=== PATIENT | female | born 1955 | race Caucasian/White ===

== ENCOUNTER → 2017-07-03 | Outpatient (CLI) | payer OTHER ==
[~2017-07-03] MED LIST: ASPCH81X PO; ATOR-24 PO; CALC500C70 PO; CZR25 PO; FURO-85 PO; MAGN400T6 PO; METO25TA56 PO; MULT-506 PO; RIVA1TAB4 PO
--- NOTE | 2017-07-04 10:36 | ECHOCARDIOGRAM REPORT ---
*NOTICE TO RECEIVING DEMOCRAT AGENCY This information is strictly Confidential and protected under [place] law. [place] law prohibits you from making any further disclosure of this information unless further disclosure is expressly permitted by the written consent of the person to whom it pertains or is authorized by law. A general authorization for the release of medical or other information is not sufficient for this purpose. Hospital accepts no responsibility if the information is made available to any other person, INCLUDING THE PATIENT. Interpretation Summary * Name: AARON SHANNON Study Date: 07/03/2017 12:48 PM BP: 136/78 mmHg * Patient Location: [facility] HR: 68 * : 1955 (M/d/yyyy) Gender: Female Height: 64 in * Age: 61 yrs Ethnicity: [place] Weight: 267 lb * Ordering Physician: Venkat Dominique * Referring Physician: Venkat Dominique PA-C * Performed By: Hunter Aj RCS * * Reason For Study: Murmur * BSA: 2.2 m2 * -- Conclusions -- * Normal LV chamber size with mild concentric LVH. * Normal LV systolic function, EF 60-65%. * No segmental left ventricular wall motion abnormalities are noted. * Normal diastolic function. * Aortic valve sclerosis moderate, without significant aortic valvular stenosis. * Mild left atrial enlargement. Procedure Details * A complete two-dimensional transthoracic echocardiogram was performed (2D, M-mode, Doppler and color flow Doppler). Left Ventricle * The left ventricle is normal in size. * There is mild concentric left ventricular hypertrophy. * Ejection Fraction = 60-65%. * Left ventricular systolic function is normal. * No segmental left ventricular wall motion abnormalities are noted. * The left ventricular wall motion is normal. Right Ventricle * The right ventricular cavity size is normal (basal dimension <4.2 cm in right ventricular apical 4-chamber view). * The right ventricular systolic function is normal as assessed by tricuspid annular plane systolic excursion (TAPSE) (normal >1.5 cm). Atria * The left atrium is mildly dilated. * Right atrial size is normal. * No ASD detected; PFO is not assessed. Mitral Valve * There is mild mitral annular calcification. * There is no mitral valve stenosis. * There is no mitral regurgitation noted. Tricuspid Valve * The tricuspid valve is normal in structure and function. Aortic Valve * The aortic valve is not well visualized. * Aortic valve sclerosis moderate, without significant aortic valvular stenosis. * There is no significant aortic regurgitation. Pulmonic Valve * The pulmonary valve is not well seen, but the Doppler examination is normal without significant regurgitation or stenosis. Great Vessels * The aortic root is normal size. Pericardium/Pleural * There is no pericardial effusion. Left Ventricular Diastolic Function * Pulse wave TDI of the anterior and posterior mitral annulas demonstrates normal LV relaxation MMode 2D Measurements and Calculations IVSd 1.3 cm IVSs 1.5 cm LVIDd 5.5 cm LVIDs 3.5 cm LVPWd 1.2 cm LVPWs 1.5 cm IVS/LVPW 1.1 FS 36.4 % EDV(Teich) 148.0 ml ESV(Teich) 51.1 ml EF(Teich) 65.5 % EDV(cubed) 167.2 ml ESV(cubed) 43.1 ml EF(cubed) 74.2 % % IVS thick 13.7 % % LVPW thick 23.8 % LV mass(C)d 285.7 grams LV mass(C)dI 129.2 grams/m\S\2 LV mass(C)s 187.6 grams LV mass(C)sI 84.8 grams/m\S\2 SV(Teich) 96.9 ml SI(Teich) 43.8 ml/m\S\2 SV(cubed) 124.1 ml SI(cubed) 56.1 ml/m\S\2 Ao root diam 3.2 cm Ao root area 8.1 cm\S\2 ACS 1.4 cm LA dimension 4.1 cm asc Aorta Diam 3.3 cm LA/Ao 1.3 EDV(MOD-sp4) 122.7 ml ESV(MOD-sp4) 59.0 ml EF(MOD-sp4) 52.0 % EDV(MOD-sp2) 114.3 ml ESV(MOD-sp2) 40.8 ml EF(MOD-sp2) 64.4 % SV(MOD-sp4) 63.8 ml SI(MOD-sp4) 28.8 ml/m\S\2 SV(MOD-sp2) 73.6 ml SI(MOD-sp2) 33.3 ml/m\S\2 Doppler Measurements and Calculations MV E max reilly 121.8 cm/sec MV A max reilyl 55.5 cm/sec MV E/A 2.2 MV P1/2t max reilly 130.6 cm/sec MV P1/2t 87.8 msec MVA(P1/2t) 2.5 cm\S\2 MV dec slope 435.7 cm/sec\S\2 MV dec time 0.29 sec Ao V2 max 184.4 cm/sec Ao max PG 13.6 mmHg Ao max PG (full) 8.1 mmHg LV V1 max PG 5.5 mmHg LV V1 max 117.3 cm/sec PA V2 max 100.0 cm/sec PA max PG 4.0 mmHg TR max reilly 273.1 cm/sec
== END | disposition home or self-care (01) ==
LOC: C.CPL 12:35
PROVIDERS: ATTEND Physician Assistant
DX: R01.1 Cardiac murmur, unspecified (principal)

== ENCOUNTER 2018-11-05 11:52 | Inpatient (IN) ==
[2018-11-05] MEDS ORDERED: METOPROLOL TARTRATE 1 MG/ML VIAL IV STA ×2 (12:50→13:36)
[2018-11-05] MEDS ORDERED: ETOMIDATE 2 MG/ML 20 ML VIAL IV ONE ×2 (13:12→15:00)
--- NOTE | 2018-11-05 13:32 | XRay Report ---
XR chest 1V portable CLINICAL HISTORY: 63 years-old Female presenting with afib, weak, chf. TECHNIQUE: Portable upright AP view of the chest was obtained. COMPARISON: None. FINDINGS: Atherosclerosis of the aortic arch. Cardiac silhouette enlarged. Mild pulmonary vascular prominence. Lungs and pleural spaces clear. Degenerative changes of the thoracic spine. Upper abdomen normal. IMPRESSION: 1. Cardiomegaly with mild volume overload. No significant congestive change or kendell pulmonary edema . Electronically signed by: Jamal Holm M.D. 11/05/2018 1:30 PM
[2018-11-05 13:46] LABS: Basophils # (auto) 0.02 K/uL (0-0.2); Basophils % (auto) 0.3 %; Eosinophils % (auto) 2.6 %; Hematocrit (blood only) 36.4 % (37-47); Hemoglobin 11.9 g/dL (12.0-16.0); Immature Granulocytes # (auto) 0.01 K/uL (0.00-0.02); Immature Granulocytes % (auto) 0.1 %; Lymphocytes # (auto) 2.07 K/uL (1.2-3.4); Lymphocytes % (auto) 26.8 %; Mean Corpuscular Hemoglobin 26.7 pg (25-34); Mean Corpuscular Hgb Conc 32.7 g/dL (32-36); Mean Corpuscular Volume 81.6 fL (80-100); Mean Platelet Volume 11.4 fL (7.4-10.4); Monocytes # (auto) 0.37 K/uL (0.11-0.59); Monocytes % (auto) 4.8 %; Neutrophils # (auto) 5.04 K/uL (1.4-6.5); Neutrophils % (auto) 65.4 %; Platelet Count 301 K/uL (130-400); Red Blood Count 4.46 M/uL (4.2-5.4); White Blood Count 7.71 K/uL (4.8-10.8)
[2018-11-05 13:59] LABS: INR 1.1 (0.9-1.1); Partial Thromboplastin Ratio 1.1; Partial Thromboplastin Time 28.9 Seconds (21.0-31.0); Prothrombin Time 11.3 Seconds (9.0-12.0)
[2018-11-05 14:02] LABS: BUN Creatinine Ratio 14.8 (10-20); Blood Urea Nitrogen 10 mg/dl (7-18); Carbon Dioxide 28 mmol/L (21-32); Chloride 108 mmol/L (98-107); Creatinine Clr Calc Pharmacy 111.1 ml/min; Est GFR (African American) 107.4; Est GFR (Non-African American) 92.7; Glucose 122 mg/dl (70-99); Magnesium 2.2 mg/dl (1.8-2.4); Potassium 4.2 mmol/L (3.5-5.1); Sodium 141 mmol/L (136-145)
[2018-11-05 14:13] LABS: NT Pro B Type Natriuretic Pept 1004 pg/ml (0-900); Troponin I < 0.015 ng/ml (0-0.045)
--- NOTE | 2018-11-05 15:08 | Cardiology Consultation ---
Date of Consultation November 05, 2018 Assessment & Plan (1) Paroxysmal a-fib: Recurrent symptomatic atrial fibrillation. The patient had been well for years status post pulmonary vein isolation and caval tricuspid isthmus ablation in March 2014 having had multiple direct- current cardioversion procedures prior to that. She however reverted to atrial fibrillation in August and underwent direct-current cardioversion, and presents again today. She has been n.p.o. for greater than 12 hours, and has been on her Xarelto without interruption. Laboratory findings are stable. Although her chest x-ray reveals some degree of pulmonary edema, she appears well compensated from a heart failure standpoint at present. After discussion with Dr. Costello, we are going to collaborate to perform a direct-current cardioversion at the bedside in the emergency department. The tentative sedation plan will be for the patient to receive etomidate. Patient was a agreeable to proceeding with direct-current cardioversion and informed consent was obtained for the procedure. (2) Hypertension: Her blood pressure had recently been controlled on outpatient follow-up, having recently started furosemide 20 mg daily. This will need to be reassessed as an outpatient as she is above goal today. History of Present Illness History of Present Illness Marguerite Yu is a 63 year old female seen in cardiology consultation per the request of Dr Costello in the ED for the evaluation of atrial fibrillation. Patient is well-known to the undersigned as I followed her on an outpatient inp atient basis for years. She states that 2 days ago she felt as if she had gone out of rhythm her typical sensation of elevated heart rate and shortness of breath consistent with her atrial fibrillation symptoms in the past. 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 When her symptoms persisted when she woke up this morning she held off on breakfast, took her morning medications with a sip of water, and presented to the emergency room. EKG performed on arrival on 11/05/2018 at 12:52 PM revealed atrial fibrillation with mildly elevated ventricular rate. No significant repolarization changes were noted, the corrected QT interval was stable at 387 ms. The patient is anticoagulated with Xarelto on a chronic basis which she takes every evening. Last evening's dose was taken at about 9 PM. The patient has had multiple diversions, the most recent of which took place on 08/28/2018. She states that she has been under a great deal of stress recently. She previously lost her sister who suddenly and had a history of aortic valve disease. Her niece, is 36 years old and is currently being treated for a glioblastoma multiforme and apparently has been told that she has a poor prognosis. Cardiology Problem List: 1. History of symptomatic paroxysmal atrial fibrillation and atrial flutter status post pulmonary vein isolation and caval tricuspid isthmus ablation procedures on 04/03/2014 on chronic anticoagulation with Xarelto 2. Long-standing hypertension 3. Coronary heart disease, nonobstructive CAD by catheterization performed in Jul, 2015 with 40% ostial LAD stenosis noted at that time. Elevated left atrial end-diastolic pressure noted 4. Obesity Allergies Allergy/AdvReac Type Severity Reaction Status Date / Time codeine Allergy Unknown Unknown, Verified 11/05/18 12:27 reaction as child Home Medications Home Medications Medication Instructions Recorded Confirmed Type Xarelto 20 mg PO PM 08/27/18 11/05/18 History aspirin 81 mg PO QAM 08/27/18 11/05/18 History atorvastatin 40 mg PO HS 08/27/18 11/05/18 History calcium carbonate-vitamin D3 1 tab PO BID 08/27/18 11/05/18 History [Calcium 500 + D] magnesium oxide 400 mg PO QAM 08/27/18 11/05/18 History metoprolol tartrate 25 mg PO BID 08/27/18 11/05/18 History multivitamin 1 tab PO QAM 08/27/18 11/05/18 History losartan 25 mg PO DAILY 11/05/18 11/05/18 History Patient History Medical History A-fib (Chronic) Atrial flutter with rapid ventricular response (Acute) Hypertension (Chronic) Paroxysmal a-fib (Acute) SVT (supraventricular tachycardia) (Acute) No pertinent family history Surgical History History of cardiac radiofrequency ablation (Resolved) Family History Other No pertinent family history Social History Preferred Language: Beninese Communication Ability: Effective Visual Impairment: No Limitations Hearing Ability: Normal Beliefs That Will Affect Care: None Current Living Situation: Spouse Feels Safe at Home: Yes Smoking Status: Never smoker Hx Alcohol Use: No Hx Substance Use: No Review of Systems Review of Systems: All systems reviewed & are unremarkable except as noted in HPI & below Physical Exam Physical Exam: Temp Pulse Resp BP Pulse Ox 36.7 C 102 H 20 142/90 H 96 11/05/18 11:57 11/05/18 14:20 11/05/18 14:20 11/05/18 14:18 11/05/18 14:20 Constitutional: WD/WN, vitals as above Respiratory: normal respiratory effort, lungs clear to auscultation Cardiovascular: Rate/Rhythm: + irregularly irregular Heart Sounds: no murmur Vessels: no JVD Extremities: no edema Gastrointestinal (Abdomen): normal bowel sounds, soft, nontender, no hepatosplenomegaly Skin: no rashes, warm and dry Neurologic: PERRL, EOMI, accommodation nl, no face palsy, no dysarthria Results & Data Vital Signs (Past 12 Hours) Vital Signs Temp Pulse Pulse Resp BP BP Pulse Ox 11/05/18 14:20 102 H 20 96 11/05/18 14:19 106 H 19 97 11/05/18 14:18 101 H 19 142/90 H 97 11/05/18 14:17 95 H 104 H 20 147/107 H 98 11/05/18 14:15 105 H 15 147/107 H 98 11/05/18 14:14 114 H 16 97 11/05/18 14:13 107 H 17 97 11/05/18 14:12 101 H 20 98 11/05/18 14:11 100 H 20 97 11/05/18 14:10 116 H 21 98 11/05/18 14:09 96 H 14 97 11/05/18 14:08 92 H 16 97 11/05/18 14:07 108 H 19 97 11/05/18 14:06 97 H 19 97 11/05/18 14:05 104 H 20 97 11/05/18 14:04 113 H 15 98 11/05/18 14:03 120 H 19 97 11/05/18 14:02 102 H 22 97 11/05/18 14:01 101 H 21 97 11/05/18 14:00 109 H 15 97 11/05/18 13:59 99 H 20 98 11/05/18 13:58 105 H 20 97 11/05/18 13:57 107 H 20 98 11/05/18 13:56 101 H 20 97 11/05/18 13:55 114 H 18 98 11/05/18 13:54 118 H 20 98 11/05/18 13:53 118 H 22 97 11/05/18 13:52 127 H 19 93 11/05/18 13:51 111 H 17 97 11/05/18 13:47 109 H 18 97 11/05/18 13:46 92 H 20 97 11/05/18 13:45 98 H 20 97 11/05/18 13:44 96 H 19 98 11/05/18 13:43 100 H 16 97 11/05/18 13:42 95 H 18 97 11/05/18 13:41 106 H 17 97 11/05/18 13:40 98 H 15 97 11/05/18 13:39 99 H 18 98 11/05/18 13:38 97 H 14 98 11/05/18 13:37 99 H 16 98 11/05/18 13:36 100 H 17 98 11/05/18 13:35 108 H 13 97 11/05/18 13:34 113 H 22 97 11/05/18 13:33 103 H 23 97 11/05/18 13:32 97 H 19 97 11/05/18 13:30 104 H 22 148/104 H 97 11/05/18 13:29 117 H 16 97 11/05/18 13:28 110 H 15 98 11/05/18 13:26 128 H 21 98 11/05/18 13:25 134 H 101 H 19 137/106 H 137/106 H 98 11/05/18 13:24 112 H 22 99 11/05/18 13:23 108 H 19 97 11/05/18 13:22 105 H 16 136/106 H 96 11/05/18 13:21 112 H 16 97 11/05/18 13:20 100 H 18 98 11/05/18 13:19 95 H 17 97 11/05/18 13:18 98 H 16 96 11/05/18 13:17 111 H 17 97 11/05/18 13:16 106 H 17 96 11/05/18 13:15 105 H 18 97 09/02/19 13:05 101 H 20 136/106 H 97 11/05/18 13:00 111 H 17 136/106 H 97 11/05/18 12:55 109 H 18 140/89 97 11/05/18 12:54 112 H 14 97 11/05/18 11:57 36.7 C 104 H 20 140/87 94 Laboratory Results Cardiac Enzymes 11/05/18 Range/Units 13:33 Troponin I < 0.015 (0-0.045) ng/ml Coagulation 11/05/18 Range/Units 13:33 PT 11.3 (9.0-12.0) Seconds APTT 28.9 (21.0-31.0) Seconds CBC 11/05/18 Range/Units 13:33 WBC 7.71 (4.8-10.8) K/uL RBC 4.46 (4.2-5.4) M/uL Hgb 11.9 L (12.0-16.0) g/dL Hct 36.4 L (37-47) % Plt Count 301 (130-400) K/uL Neut # (Auto) 5.04 (1.4-6.5) K/uL Lymph # (Auto) 2.07 (1.2-3.4) K/uL [place] # (Auto) 0.37 (0.11-0.59) K/uL Eos # (Auto) 0.20 (0-0.5) K/uL Baso # (Auto) 0.02 (0-0.2) K/uL Comprehensive Metabolic Panel 11/05/18 Range/Units 13:33 Sodium 141 (136-145) mmol/L Potassium 4.2 (3.5-5.1) mmol/L Chloride 108 H (98-107) mmol/L Carbon Dioxide 28 (21-32) mmol/L BUN 10 (7-18) mg/dl Creatinine 0.66 (0.6-1.2) mg/dl Glucose 122 H (70-99) mg/dl Calcium 9.0 (8.5-10.1) mg/dl Intake and Output 11/05/18 11/05/18 11/05/18 06:59 14:59 22:59 Other: Weight 124.9 kg Patient Weight 11/06/18 06:59 Weight 124.9 kg Diagnostic Findings Radiology report of her chest x-ray describes mild interstitial edema EKG as outlined above
[2018-11-05] MEDS ORDERED: dilTIAZem HCl 5 MG/ML 5 ML VIAL IV STA (15:29)
--- NOTE | 2018-11-05 15:29 | Post Operative Brief Note ---
Cardiology Brief Post Op Date of Surgery November 05, 2018 Pre & Post Diagnosis Preprocedure diagnosis: Symptomatic atrial fibrillation with rapid ventricular response Postprocedure diagnosis: Persistent atrial fibrillation refractory to direct- current cardioversion Procedure After informed consent was obtained a timeout was performed the patient was sedated with the assistance of Dr. Costello receiving a total of 10 mg of IV etomidate. The patient then received a total of 3 doses of synchronized biphasic energy of 250 J, 300 J, 360 J. Direct-current cardioversion however was unsuccessful and the patient remained in atrial fibrillation. Vital signs remained stable throughout the procedure. Plan: Patient is to be admitted for observation, will initiate IV diltiazem in addition to her home medications. If she remains in atrial fibrillation tomorrow, consideration will be made toward initiating antiarrhythmic therapy perhaps with sotalol or dofetilide. Food Expeditor Neno Velasquez DO Bobbin Fixer none Estimated Blood Loss 0 Findings Consistent with Post-Op Diagnosis Complications none
[2018-11-05] MEDS: dilTIAZem HCl 125 MG in DEXTROSE 5% 100 ML IV SCH (16:36)
--- NOTE | 2018-11-05 16:54 | History & Physical Report ---
Date of Service November 05, 2018 Assessment & Plan (1) Atrial fibrillation with RVR: Present on admission with palpitation, tiredness and SOB EKG on admission showed Afib with RVR Received IV Lopressor on admission On Xarelto daily and has not been missing a dose unsuccessful cardioversion with total of 3 doses of synchronized biphasic energy of 250 J, 300 J, [address] Velasquez Received IV cardizem 10mg IV and was starting on cardizem drip Cardiology on board Continue metoprolol for now Will check an Echo in am Cardiology plan to start on Sotalol if remains on Afib Check EKG in am Continue Xarelto (Nurse was notified to give it between 7 to 8 pm) Will monitor closely on telemetry HTN BP stable Continue Losartan Monitor BP Volume Overload CXR showed cardiomegaly with mild volume overload. No significant congestive change or kendell pulmonary edema. ProBNP 1004 Clinically no sign of fluid overload On Lasix MWF (Did not take the lasix this morning) Dyslipidemia Continue Dyslipidemia DVT px on Xarelto CODE STATUS FULL CODE Disposition Will admit to telemetry History of Present Illness Chief Complaint: Afib Primary Care Provider: Bettie Begum PA-C 63 yo Female with PMH of Paroxysmal afib, HTN, obesity, COPD, dyslipedemia, CAD present to the ER for palpitation and SOB. Pt said that symptoms started about 2 days ago where she felt tired and sob. She said that she checked her pulse from the carotid area where she was able to feel it and was irregular. She said that yesterday she felt very tired while at [employer]. She said that SOB has been worsening on exertion. She said that when she woke up this morning her symptoms persisted. She was in Afib back in August and was successfully cardioverted. She said that she has been taking her med and took her Xarelto every night without missing any dose. Currently denies any chest pain, fever, SOB dysuria. In the ER she was cardioverted with total of 3 doses of synchronized biphasic energy of 250 J, 300 J, [address] Velasquez that was unsuccessful. Allergies Allergy/AdvReac Type Severity Reaction Status Date / Time codeine Allergy Unknown Unknown, Verified 11/05/18 12:27 reaction as child Home Medications Home Medications Medication Instructions Recorded Confirmed Type Xarelto 20 mg PO PM 08/27/18 11/05/18 History aspirin 81 mg PO QAM 08/27/18 11/05/18 History atorvastatin 40 mg PO HS 08/27/18 11/05/18 History calcium carbonate-vitamin D3 1 tab PO BID 08/27/18 11/05/18 History [Calcium 500 + D] magnesium oxide 400 mg PO QAM 08/27/18 11/05/18 History metoprolol tartrate 25 mg PO BID 08/27/18 11/05/18 History multivitamin 1 tab PO QAM 08/27/18 11/05/18 History furosemide [Lasix] 20 mg PO 3XWK 11/05/18 11/05/18 History losartan 25 mg PO DAILY 11/05/18 11/05/18 History Past Med/Surg History Medical History A-fib (Chronic) Atrial flutter with rapid ventricular response (Acute) Hypertension (Chronic) Paroxysmal a-fib (Acute) SVT (supraventricular tachycardia) (Acute) No pertinent family history Surgical History History of cardiac radiofrequency ablation (Resolved) Family History Other No pertinent family history Social History Preferred Language: Slovenian Communication Ability: Effective Visual Impairment: No Limitations Hearing Ability: Normal Beliefs That Will Affect Care: None Current Living Situation: Spouse Other Information That Helps Us Care for You: No Feels Safe at Home: Yes Safety Concerns: Feels Safe At This Time Smoking Status: Never smoker Hx Alcohol Use: No Hx Substance Use: No Review of Systems Review of Systems: All systems reviewed & are unremarkable except as noted in HPI & below Physical Exam Physical Exam: General- No acute distress Head- atraumatic Eyes- PERRL, EOMI, ENT- oropharynx clear Neck- supple, no JVD Lungs- clear to auscultation Heart- irregular rhythm Abdomen- normal bowel sounds, soft, nontender Extremities- no calf tenderness Neuro- alert, oriented x 3; PERRL, EOMI; no facial palsy; no dysarthria Skin- warm & dry Results & Data Vital Signs (Past 12 Hours) Vital Signs Temp Pulse Pulse Resp BP BP Pulse Ox 11/05/18 16:45 88 18 128/83 95 11/05/18 16:44 104 H 95 11/05/18 16:43 100 H 95 11/05/18 16:42 113 H 97 11/05/18 16:41 118 H 97 11/05/18 16:40 111 H 97 11/05/18 16:39 114 H 97 11/05/18 16:38 103 H 97 11/05/18 16:37 104 H 95 11/05/18 16:36 116 H 97 11/05/18 16:35 110 H 96 11/05/18 16:34 113 H 96 11/05/18 16:33 101 H 96 11/05/18 16:32 106 H 96 11/05/18 16:30 118 H 146/86 H 96 11/05/18 16:29 105 H 132/100 11/05/18 16:20 125 H 11/05/18 16:19 112 H 97 11/05/18 16:18 114 H 96 11/05/18 16:17 106 H 96 11/05/18 16:15 108 H 141/96 H 96 11/05/18 16:14 113 H 96 11/05/18 16:13 116 H 97 11/05/18 16:12 109 H 96 11/05/18 16:10 104 H 137/91 96 11/05/18 16:09 117 H 97 11/05/18 16:08 125 H 97 11/05/18 16:07 104 H 98 11/05/18 16:05 113 H 107/89 98 11/05/18 16:04 108 H 98 11/05/18 16:03 115 H 98 11/05/18 16:02 109 H 97 11/05/18 16:00 109 H 145/99 H 97 11/05/18 15:59 123 H 96 11/05/18 15:58 102 H 96 11/05/18 15:57 110 H 97 11/05/18 15:55 109 H 131/110 H 96 11/05/18 15:54 126 H 97 11/05/18 15:53 111 H 97 11/05/18 15:52 124 H 98 11/05/18 15:51 121 H 99/83 L 98 11/05/18 15:50 118 H 11/05/18 15:49 112 H 98 11/05/18 15:48 136 H 98 11/05/18 15:47 135 H 98 11/05/18 15:45 104 H 137/98 98 11/05/18 15:44 116 H 97 11/05/18 15:43 109 H 97 11/05/18 15:42 111 H 97 11/05/18 15:40 99 H 155/98 H 97 11/05/18 15:39 138 H 97 11/05/18 15:38 130 H 97 11/05/18 15:37 117 H 96 11/05/18 15:35 109 H 144/92 H 97 11/05/18 15:34 121 H 97 11/05/18 15:33 114 H 98 11/05/18 15:32 113 H 99 11/05/18 15:30 127 H 135/103 H 99 11/05/18 15:29 123 H 99 11/05/18 15:28 105 H 99 11/05/18 15:27 114 H 100 11/05/18 15:25 112 H 145/114 H 99 11/05/18 15:24 120 H 99 11/05/18 15:23 130 H 99 11/05/18 15:22 117 H 99 11/05/18 15:20 117 H 140/110 H 99 11/05/18 15:19 128 H 99 11/05/18 15:18 119 H 99 11/05/18 15:17 143 H 99 11/05/18 15:15 120 H 153/121 H 99 11/05/18 15:14 133 H 100 11/05/18 15:13 114 H 100 11/05/18 15:11 125 H 20 159/104 H 100 11/05/18 15:10 127 H 22 100 11/05/18 15:09 98 H 20 100 11/05/18 15:08 104 H 18 100 11/05/18 15:07 112 H 18 99 11/05/18 15:06 117 H 19 98 11/05/18 15:05 112 H 21 98 11/05/18 15:04 107 H 26 H 98 11/05/18 15:03 112 H 24 97 11/05/18 15:02 111 H 22 97 11/05/18 15:00 105 H 21 128/91 97 11/05/18 14:59 107 H 18 97 09/02/19 14:58 107 H 16 97 11/05/18 14:57 96 H 15 97 11/05/18 14:56 118 H 24 97 11/05/18 14:55 110 H 24 98 11/05/18 14:54 113 H 19 98 11/05/18 14:53 118 H 27 H 98 11/05/18 14:52 104 H 18 97 11/05/18 14:51 107 H 18 98 11/05/18 14:50 98 H 21 98 11/05/18 14:49 113 H 22 99 11/05/18 14:48 106 H 16 98 11/05/18 14:47 100 H 15 97 11/05/18 14:46 94 H 17 97 11/05/18 14:45 102 H 14 98 11/05/18 14:44 106 H 15 97 11/05/18 14:43 106 H 15 97 11/05/18 14:42 97 H 17 94 11/05/18 14:41 99 H 16 95 11/05/18 14:40 103 H 16 95 11/05/18 14:39 87 16 96 11/05/18 14:38 99 H 16 96 11/05/18 14:37 96 H 17 96 11/05/18 14:36 105 H 18 96 11/05/18 14:35 108 H 18 95 11/05/18 14:34 101 H 18 95 11/05/18 14:33 90 14 97 11/05/18 14:32 103 H 19 96 11/05/18 14:30 104 H 17 137/93 97 11/05/18 14:20 102 H 20 96 11/05/18 14:19 106 H 19 97 11/05/18 14:18 101 H 19 142/90 H 97 11/05/18 14:17 95 H 104 H 20 147/107 H 98 11/05/18 14:15 105 H 15 147/107 H 98 11/05/18 14:14 114 H 16 97 11/05/18 14:13 107 H 17 97 11/05/18 14:12 101 H 20 98 11/05/18 14:11 100 H 20 97 11/05/18 14:10 116 H 21 98 11/05/18 14:09 96 H 14 97 11/05/18 14:08 92 H 16 97 11/05/18 14:07 108 H 19 97 11/05/18 14:06 97 H 19 97 11/05/18 14:05 104 H 20 97 11/05/18 14:04 113 H 15 98 11/05/18 14:03 120 H 19 97 11/05/18 14:02 102 H 22 97 11/05/18 14:01 101 H 21 97 11/05/18 14:00 109 H 15 97 11/05/18 13:59 99 H 20 98 11/05/18 13:58 105 H 20 97 11/05/18 13:57 107 H 20 98 11/05/18 13:56 101 H 20 97 11/05/18 13:55 114 H 18 98 11/05/18 13:54 118 H 20 98 11/05/18 13:53 118 H 22 97 11/05/18 13:52 127 H 19 93 11/05/18 13:51 111 H 17 97 11/05/18 13:47 109 H 18 97 11/05/18 13:46 92 H 20 97 11/05/18 13:45 98 H 20 97 11/05/18 13:44 96 H 19 98 11/05/18 13:43 100 H 16 97 11/05/18 13:42 95 H 18 97 11/05/18 13:41 106 H 17 97 11/05/18 13:40 98 H 15 97 11/05/18 13:39 99 H 18 98 11/05/18 13:38 97 H 14 98 11/05/18 13:37 99 H 16 98 11/05/18 13:36 100 H 17 98 11/05/18 13:35 108 H 13 97 11/05/18 13:34 113 H 22 97 11/05/18 13:33 103 H 23 97 11/05/18 13:32 97 H 19 97 11/05/18 13:30 104 H 22 148/104 H 97 11/05/18 13:29 117 H 16 97 11/05/18 13:28 110 H 15 98 11/05/18 13:26 128 H 21 98 11/05/18 13:25 134 H 101 H 19 137/106 H 137/106 H 98 11/05/18 13:24 112 H 22 99 11/05/18 13:23 108 H 19 97 11/05/18 13:22 105 H 16 136/106 H 96 11/05/18 13:21 112 H 16 97 11/05/18 13:20 100 H 18 98 11/05/18 13:19 95 H 17 97 11/05/18 13:18 98 H 16 96 11/05/18 13:17 111 H 17 97 11/05/18 13:16 106 H 17 96 11/05/18 13:15 105 H 18 97 11/05/18 13:05 101 H 20 136/106 H 97 11/05/18 13:00 111 H 17 136/106 H 97 11/05/18 12:55 109 H 18 140/89 97 11/05/18 12:54 112 H 14 97 11/05/18 11:57 36.7 C 104 H 20 140/87 94 Diagnostic Findings XR chest 1V portable CLINICAL HISTORY: 63 years-old Female presenting with afib, weak, chf. TECHNIQUE: Portable upright AP view of the chest was obtained. COMPARISON: None. FINDINGS: Atherosclerosis of the aortic arch. Cardiac silhouette enlarged. Mild pulmonary vascular prominence. Lungs and pleural spaces clear. Degenerative changes of the thoracic spine. Upper abdomen normal. IMPRESSION: 1. Cardiomegaly with mild volume overload. No significant congestive change or kendell pulmonary edema. Electronically signed by: Jamal Holm M.D. 11/05/2018 1:30 PM Dictated: 11/05/18 1328 Transcribed: 11/05/18 1328
[2018-11-05] MEDS ORDERED: PNEUMOCOCCAL ADMINISTRATION CHARGE ONE (18:15)
[2018-11-05] MEDS ORDERED: PNEUMOCOCCAL POLYSACCHARIDES 25 MCG/0.5 ML VIAL/SYR IM ONE (18:15)
--- NOTE | 2018-11-05 18:23 | Emergency Department Note ---
Entered by Shavonne June acting as a scribe for ED Provider Note Name: Marguerite Silva Age: 63 Arrives Via: Walk In Informant: Patient CC: Cardiac Assessment HPI: A 63 year old female arrives for a cardiac assessment. She states that 2 days airplane [employer], she was cleaning when she suddenly broke into a cold sweat and began feeling palpitations. She believes at this time she went into A-fib due to her past history. Notes shortness of breath worse with exertion. Better with rest. No new medications taken for this. Denies trauma nor injury. She denies chest pain, headache, neck pain, vomiting, leg swelling abdominal pain, syncope, back pain, urinary/bowel symptoms, rashes, fevers, nor other symptoms. Follow with Dr Velasquez of cards. She has history of ablation in past. She has been cardioverted for symptomatic afib previously. Admits she is currently on Xarelto and that she has missed no medication doses. ROS: See above HPI for pertinent positives & negatives. A total of 10 systems reviewed and were otherwise negative. Past Medical History: A-fib. HTN. SVT. Past Surgical History: Cardiac Ablation Family History: No pertinent family history Social History: . Lives with spouse. Never smoked. Home Medications: Metoprolol. Losartan. Xarelto. 81 mg aspirin. Allergies Codeine Physical: Vitals: BP 140/87, P 104, R 20, O2 94%, Temp 98.1 Exam: GENERAL: Patient is tired appearing and in minimal distress. EYES: No scleral icterus, unremarkable pupils. ENT: Mucous membranes moist, no nasal congestion. NECK: No masses appreciated, no meningismus, trachea is midline. RESPIRATORY: Bilateral crackles all lung christians[place]. CARDIOVASCULAR: Tachycardic rate and irregular rhythm. No murmurs, rubs, gallops appreciated. GASTROINTESTINAL: Abdomen soft, non-tender, no peritonitis. Bowel sounds positive. No masses appreciated. BACK: No midline tenderness, no CVA tenderness EXTREMITIES: Normal motion all extremities, no cyanosis, no edema. NEUROLOGIC: Alert and oriented, no acute motor or sensory deficits, no focal we akness, cranial nerves grossly intact. SKIN: No rash, no jaundice, no diaphoresis. ED Course: Prior Medical Record, Triage/Nursing Notes, Medications, Allergies reviewed by Me Vital Signs: reviewed and remarkable for Tachy Labs: Reviewed and remarkable for wnl Interventions: saline lock, lopressor 5mg IV x 2, etomidate 10mg IV, NSS bolu 250ml Imaging: Radiology results as stated below per my review and the radiologist's interpretation: XR chest 1V portable CLINICAL HISTORY: 63 years-old Female presenting with afib, weak, chf. TECHNIQUE: Portable upright AP view of the chest was obtained. COMPARISON: None. FINDINGS: Atherosclerosis of the aortic arch. Cardiac silhouette enlarged. Mild pulmonary vascular prominence. Lungs and pleural spaces clear. Degenerative changes of the thoracic spine. Upper abdomen normal. IMPRESSION: 1. Cardiomegaly with mild volume overload. No significant congestive change or kendell pulmonary edema. Electronically signed by: Jamal Holm M.D. 11/05/2018 1:30 PM EKG: Per My Interpretation: Indication Palpitations: Afib RVR at 106 bpm without ischemia. QTC 387. When compared to August 28/2019 now in afib from NSR. Blood pressure: 140/87 Elevated - Further management by hospitalist. Course: 1244: Past medical records reviewed. The patient was evaluated in room C8. A complete history and physical exam was performed. 1334: Patient received 5 mg of Lopressor. Still tachycardic. 1342: I discussed the patients case with Dr. Velasquez, Cardiology. He said to prep the patient for cardioversion and he will be down shortly. 1354: I verbally consented the patient for procedural sedation. 1410: Obtained written consent at this time from the patient. Awaiting Dr. Velasquez, Cardiology. 1500: Dr. Velasquez, Cardiology saw the patient and agrees with need for cardioversion. 1511: Dr. Velasquez and I performed a cardioversion at this time. Consults: 1342: I discussed the patients case with Dr. Velasquez, Cardiology. He said to prep the patient for cardioversion and he will be down shortly. 1530: I discussed the patients case with Dr. [facility] Hospitalist. He will evaluate the patient at this time. Procedure: Procedural Sedation Indication: Electrocardioversion by Dr Velasquez. Last Ate: >12 hours ago Previous issues with sedation: none Snore: yes Emergent: Yes ASA: III Dentures: None Time Out: 15:11 Time Recovered: 15:26 Total time: 15min Written consent was obtained after the risks and benefits were explained to the patient and family, including, but not limited to aspiration, allergic reaction, breathing difficulties, cardiac complications, vomiting, pain, event recall, bleeding, and/or infection. Pre-sedation examination and paperwork completed. The patient was on 100% oxygen via NRB prior to the procedure. Continuos end tidal CO2 monitoring, pulse oximetry, and cardiac monitoring were utilized. Suction, airway equipment, medications, respiratory equipment, and appropriate personnel were prepared prior to the initiation of the procedure. A time out was taken. Sedation was achieved utilizing 10 mg of Etomidate. After I observed the patient had reached the appropriate level of sedation the main procedure was performed without complication. Sedation was discontinued and the monitoring continued. The patient recovered quickly from the effects of the medication without complication or adverse event. Disposition: Being evaluated by hospitalist Prescriptions: none. Differentials: NSR, SVT, PACs, PVCs, Cardiac Dysrhythmia, Endocrine Dysfunction, Eletrolyte/Metabolic Abnormality, Pulmonary Embolism, Infectious, GI, amongst other pathologies entertained. Medical Decision Makin yr old female with palpitations for 48 hours. She is in afib RVR which has occurred previously and clearly this is symptomatic. Mild CHF with it as well though not hypoxic. She was given 2 rounds IV lopressor with only mild improvement in HR. Labs OK. Last ate > 12 hours ago and has been taking Xarelto as prescribed. Dr Velasquez down to evaluate and he wished to attempt electrocardioversion. I sedated patient with Etomidate for procedure, during which 3 attempts at electrocardioversion done, which unfortunately she did not convert to NSR. Dr Velasquez ordered further meds and I asked hospitalists to evaluate for admission. Patient completely awake, alert and oriented post p rocedure without any breathing difficulty. Impression: Afib with RVR Critical Care Time: I have personally spent greater than 30 minutes of critical care time in the direct management of this patient. Afib RVR without improvement after IV lopressor requiring attempted electrocardioversion cardioversion and then admission to hospitalist. This was a life/limb threatening event. This includes time spent evaluating patient, direct bedside care, chart review, placing orders, interpretation of diagnostic studies, discussion with consultants, patient, and family members, as well as other required patient management activities. This 30 minutes is in excess of all separately billable procedures. The scribe's documentation has been prepared under my direction and personally reviewed by me in its entirety. I confirm that the note above accurately reflects all work, treatment, procedures, and medical decision making performed by me. Hardeep Costello MD Impression & Plan Atrial fibrillation with RVR Past Med/Surg History Medical History A-fib (Chronic) Atrial flutter with rapid ventricular response (Acute) Hypertension (Chronic) Paroxysmal a-fib (Acute) SVT (supraventricular tachycardia) (Acute) No pertinent family history Surgical History History of cardiac radiofrequency ablation (Resolved) Family History Other No pertinent family history Social History Preferred Language: [place] Communication Ability: Effective Visual Impairment: No Limitations Hearing Ability: Normal Beliefs That Will Affect Care: None Current Living Situation: Spouse Other Information That Helps Us Care for You: No Feels Safe at Home: Yes Safety Concerns: Feels Safe At This Time Smoking Status: Never smoker Hx Alcohol Use: No Hx Substance Use: No Results & Data Vital Signs Vital Signs - 24 hr 11/05/18 11:57 11/05/18 12:54 11/05/18 12:55 Temperature 36.7 C Temperature Source Oral Sepsis Recent Fever Within 48 Hours No Sepsis New/Unexplained Change in Mental Status No Sepsis Action Taken by Nursing No Action Required End-Tidal CO2 Pulse Rate 104 H 112 H 109 H Pulse Rate [Apical] Pulse Rate from SpO2 Sensor 98 H 103 H Pulse Rhythm Irregular Respiratory Rate 20 14 18 Respiratory Effort / Characteristics Non-Labored Respiratory Depth Normal Respiratory Pattern Regular Blood Pressure 140/87 140/89 Blood Pressure [Left Arm] Blood Pressure Mean 104 106 Blood Pressure Mean [Left Arm] Blood Pressure Position Sitting Blood Pressure Position [Left Arm] Pulse Oximetry 94 97 97 Oxygen Delivery Method Room Air Oxygen Flow Rate 11/05/18 13:00 11/05/18 13:05 11/05/18 13:15 Temperature Temperature Source Sepsis Recent Fever Within 48 Hours Sepsis New/Unexplained Change in Mental Status Sepsis Action Taken by Nursing End-Tidal CO2 Pulse Rate 111 H 105 H Pulse Rate [Apical] 101 H Pulse Rate from SpO2 Sensor 106 H 91 H Pulse Rhythm Respiratory Rate 17 20 18 Respiratory Effort / Characteristics Non-Labored Respiratory Depth Normal Respiratory Pattern Regular Blood Pressure 136/106 H Blood Pressure [Left Arm] 136/106 H Blood Pressure Mean 116 Blood Pressure Mean [Left Arm] 116 Blood Pressure Position Blood Pressure Position [Left Arm] Lying Pulse Oximetry 97 97 97 Oxygen Delivery Method Room Air Oxygen Flow Rate 11/05/18 13:16 11/05/18 13:17 11/05/18 13:18 Temperature Temperature Source Sepsis Recent Fever Within 48 Hours Sepsis New/Unexplained Change in Mental Status Sepsis Action Taken by Nursing End-Tidal CO2 Pulse Rate 106 H 111 H 98 H Pulse Rate [Apical] Pulse Rate from SpO2 Sensor 99 H 97 H 85 Pulse Rhythm Respiratory Rate 17 17 16 Respiratory Effort / Characteristics Respiratory Depth Respiratory Pattern Blood Pressure Blood Pressure [Left Arm] Blood Pressure Mean Blood Pressure Mean [Left Arm] Blood Pressure Position Blood Pressure Position [Left Arm] Pulse Oximetry 96 97 96 Oxygen Delivery Method Oxygen Flow Rate 11/05/18 13:19 11/05/18 13:20 11/05/18 13:21 Temperature Temperature Source Sepsis Recent Fever Within 48 Hours Sepsis New/Unexplained Change in Mental Status Sepsis Action Taken by Nursing End-Tidal CO2 Pulse Rate 95 H 100 H 112 H Pulse Rate [Apical] Pulse Rate from SpO2 Sensor 91 H 96 H 102 H Pulse Rhythm Respiratory Rate 17 18 16 Respiratory Effort / Characteristics Respiratory Depth Respiratory Pattern Blood Pressure Blood Pressure [Left Arm] Blood Pressure Mean Blood Pressure Mean [Left Arm] Blood Pressure Position Blood Pressure Position [Left Arm] Pulse Oximetry 97 98 97 Oxygen Delivery Method Oxygen Flow Rate 11/05/18 13:22 11/05/18 13:23 11/05/18 13:24 Temperature Temperature Source Sepsis Recent Fever Within 48 Hours Sepsis New/Unexplained Change in Mental Status Sepsis Action Taken by Nursing End-Tidal CO2 Pulse Rate 105 H 108 H 112 H Pulse Rate [Apical] Pulse Rate from SpO2 Sensor 112 H 110 H 111 H Pulse Rhythm Respiratory Rate 16 19 22 Respiratory Effort / Characteristics Respiratory Depth Respiratory Pattern Blood Pressure 136/106 H Blood Pressure [Left Arm] Blood Pressure Mean Blood Pressure Mean [Left Arm] Blood Pressure Position Blood Pressure Position [Left Arm] Pulse Oximetry 96 97 99 Oxygen Delivery Method Oxygen Flow Rate 11/05/18 13:25 11/05/18 13:26 11/05/18 13:28 Temperature Temperature Source Sepsis Recent Fever Within 48 Hours Sepsis New/Unexplained Change in Mental Status Sepsis Action Taken by Nursing End-Tidal CO2 Pulse Rate 134 H 128 H 110 H Pulse Rate [Apical] 101 H Pulse Rate from SpO2 Sensor 107 H 121 H 108 H Pulse Rhythm Respiratory Rate 19 21 15 Respiratory Effort / Characteristics Non-Labored Spontaneous Respiratory Depth Normal Respiratory Pattern Regular Blood Pressure 137/106 H Blood Pressure [Left Arm] 137/106 H Blood Pressure Mean 116 Blood Pressure Mean [Left Arm] 116 Blood Pressure Position Blood Pressure Position [Left Arm] Lying Pulse Oximetry 98 98 98 Oxygen Delivery Method Room Air Oxygen Flow Rate 11/05/18 13:29 11/05/18 13:30 11/05/18 13:32 Temperature Temperature Source Sepsis Recent Fever Within 48 Hours Sepsis New/Unexplained Change in Mental Status Sepsis Action Taken by Nursing End-Tidal CO2 Pulse Rate 117 H 104 H 97 H Pulse Rate [Apical] Pulse Rate from SpO2 Sensor 101 H 108 H 82 Pulse Rhythm Respiratory Rate 16 22 19 Respiratory Effort / Characteristics Respiratory Depth Respiratory Pattern Blood Pressure 148/104 H Blood Pressure [Left Arm] Blood Pressure Mean 118 Blood Pressure Mean [Left Arm] Blood Pressure Position Blood Pressure Position [Left Arm] Pulse Oximetry 97 97 97 Oxygen Delivery Method Oxygen Flow Rate 11/05/18 13:33 11/05/18 13:34 11/05/18 13:35 Temperature Temperature Source Sepsis Recent Fever Within 48 Hours Sepsis New/Unexplained Change in Mental Status Sepsis Action Taken by Nursing End-Tidal CO2 Pulse Rate 103 H 113 H 108 H Pulse Rate [Apical] Pulse Rate from SpO2 Sensor 108 H 99 H 99 H Pulse Rhythm Respiratory Rate 23 22 13 Respiratory Effort / Characteristics Respiratory Depth Respiratory Pattern Blood Pressure Blood Pressure [Left Arm] Blood Pressure Mean Blood Pressure Mean [Left Arm] Blood Pressure Position Blood Pressure Position [Left Arm] Pulse Oximetry 97 97 97 Oxygen Delivery Method Oxygen Flow Rate 11/05/18 13:36 11/05/18 13:37 11/05/18 13:38 Temperature Temperature Source Sepsis Recent Fever Within 48 Hours Sepsis New/Unexplained Change in Mental Status Sepsis Action Taken by Nursing End-Tidal CO2 Pulse Rate 100 H 99 H 97 H Pulse Rate [Apical] Pulse Rate from SpO2 Sensor 94 H 99 H 93 H Pulse Rhythm Respiratory Rate 17 16 14 Respiratory Effort / Characteristics Respiratory Depth Respiratory Pattern Blood Pressure Blood Pressure [Left Arm] Blood Pressure Mean Blood Pressure Mean [Left Arm] Blood Pressure Position Blood Pressure Position [Left Arm] Pulse Oximetry 98 98 98 Oxygen Delivery Method Oxygen Flow Rate 11/05/18 13:39 11/05/18 13:40 11/05/18 13:41 Temperature Temperature Source Sepsis Recent Fever Within 48 Hours Sepsis New/Unexplained Change in Mental Status Sepsis Action Taken by Nursing End-Tidal CO2 Pulse Rate 99 H 98 H 106 H Pulse Rate [Apical] Pulse Rate from SpO2 Sensor 82 88 101 H Pulse Rhythm Respiratory Rate 18 15 17 Respiratory Effort / Characteristics Respiratory Depth Respiratory Pattern Blood Pressure Blood Pressure [Left Arm] Blood Pressure Mean Blood Pressure Mean [Left Arm] Blood Pressure Position Blood Pressure Position [Left Arm] Pulse Oximetry 98 97 97 Oxygen Delivery Method Oxygen Flow Rate 11/05/18 13:42 11/05/18 13:43 11/05/18 13:44 Temperature Temperature Source Sepsis Recent Fever Within 48 Hours Sepsis New/Unexplained Change in Mental Status Sepsis Action Taken by Nursing End-Tidal CO2 Pulse Rate 95 H 100 H 96 H Pulse Rate [Apical] Pulse Rate from SpO2 Sensor 87 83 90 Pulse Rhythm Respiratory Rate 18 16 19 Respiratory Effort / Characteristics Respiratory Depth Respiratory Pattern Blood Pressure Blood Pressure [Left Arm] Blood Pressure Mean Blood Pressure Mean [Left Arm] Blood Pressure Position Blood Pressure Position [Left Arm] Pulse Oximetry 97 97 98 Oxygen Delivery Method Oxygen Flow Rate 11/05/18 13:45 11/05/18 13:46 11/05/18 13:47 Temperature Temperature Source Sepsis Recent Fever Within 48 Hours Sepsis New/Unexplained Change in Mental Status Sepsis Action Taken by Nursing End-Tidal CO2 Pulse Rate 98 H 92 H 109 H Pulse Rate [Apical] Pulse Rate from SpO2 Sensor 89 95 H 99 H Pulse Rhythm Respiratory Rate 20 20 18 Respiratory Effort / Characteristics Respiratory Depth Respiratory Pattern Blood Pressure Blood Pressure [Left Arm] Blood Pressure Mean Blood Pressure Mean [Left Arm] Blood Pressure Position Blood Pressure Position [Left Arm] Pulse Oximetry 97 97 97 Oxygen Delivery Method Oxygen Flow Rate 11/05/18 13:51 11/05/18 13:52 11/05/18 13:53 Temperature Temperature Source Sepsis Recent Fever Within 48 Hours Sepsis New/Unexplained Change in Mental Status Sepsis Action Taken by Nursing End-Tidal CO2 Pulse Rate 111 H 127 H 118 H Pulse Rate [Apical] Pulse Rate from SpO2 Sensor 106 H 114 H 111 H Pulse Rhythm Respiratory Rate 17 19 22 Respiratory Effort / Characteristics Respiratory Depth Respiratory Pattern Blood Pressure Blood Pressure [Left Arm] Blood Pressure Mean Blood Pressure Mean [Left Arm] Blood Pressure Position Blood Pressure Position [Left Arm] Pulse Oximetry 97 93 97 Oxygen Delivery Method Oxygen Flow Rate 11/05/18 13:54 11/05/18 13:55 11/05/18 13:56 Temperature Temperature Source Sepsis Recent Fever Within 48 Hours Sepsis New/Unexplained Change in Mental Status Sepsis Action Taken by Nursing End-Tidal CO2 Pulse Rate 118 H 114 H 101 H Pulse Rate [Apical] Pulse Rate from SpO2 Sensor 117 H 102 H 102 H Pulse Rhythm Respiratory Rate 20 18 20 Respiratory Effort / Characteristics Respiratory Depth Respiratory Pattern Blood Pressure Blood Pressure [Left Arm] Blood Pressure Mean Blood Pressure Mean [Left Arm] Blood Pressure Position Blood Pressure Position [Left Arm] Pulse Oximetry 98 98 97 Oxygen Delivery Method Oxygen Flow Rate 11/05/18 13:57 11/05/18 13:58 11/05/18 13:59 Temperature Temperature Source Sepsis Recent Fever Within 48 Hours Sepsis New/Unexplained Change in Mental Status Sepsis Action Taken by Nursing End-Tidal CO2 Pulse Rate 107 H 105 H 99 H Pulse Rate [Apical] Pulse Rate from SpO2 Sensor 103 H 102 H 105 H Pulse Rhythm Respiratory Rate 20 20 20 Respiratory Effort / Characteristics Respiratory Depth Respiratory Pattern Blood Pressure Blood Pressure [Left Arm] Blood Pressure Mean Blood Pressure Mean [Left Arm] Blood Pressure Position Blood Pressure Position [Left Arm] Pulse Oximetry 98 97 98 Oxygen Delivery Method Oxygen Flow Rate 11/05/18 14:00 11/05/18 14:01 11/05/18 14:02 Temperature Temperature Source Sepsis Recent Fever Within 48 Hours Sepsis New/Unexplained Change in Mental Status Sepsis Action Taken by Nursing End-Tidal CO2 Pulse Rate 109 H 101 H 102 H Pulse Rate [Apical] Pulse Rate from SpO2 Sensor 112 H 101 H 102 H Pulse Rhythm Respiratory Rate 15 21 22 Respiratory Effort / Characteristics Respiratory Depth Respiratory Pattern Blood Pressure Blood Pressure [Left Arm] Blood Pressure Mean Blood Pressure Mean [Left Arm] Blood Pressure Position Blood Pressure Position [Left Arm] Pulse Oximetry 97 97 97 Oxygen Delivery Method Oxygen Flow Rate 11/05/18 14:03 11/05/18 14:04 11/05/18 14:05 Temperature Temperature Source Sepsis Recent Fever Within 48 Hours Sepsis New/Unexplained Change in Mental Status Sepsis Action Taken by Nursing End-Tidal CO2 Pulse Rate 120 H 113 H 104 H Pulse Rate [Apical] Pulse Rate from SpO2 Sensor 109 H 96 H 98 H Pulse Rhythm Respiratory Rate 19 15 20 Respiratory Effort / Characteristics Respiratory Depth Respiratory Pattern Blood Pressure Blood Pressure [Left Arm] Blood Pressure Mean Blood Pressure Mean [Left Arm] Blood Pressure Position Blood Pressure Position [Left Arm] Pulse Oximetry 97 98 97 Oxygen Delivery Method Oxygen Flow Rate 11/05/18 14:06 11/05/18 14:07 11/05/18 14:08 Temperature Temperature Source Sepsis Recent Fever Within 48 Hours Sepsis New/Unexplained Change in Mental Status Sepsis Action Taken by Nursing End-Tidal CO2 Pulse Rate 97 H 108 H 92 H Pulse Rate [Apical] Pulse Rate from SpO2 Sensor 94 H 95 H 98 H Pulse Rhythm Respiratory Rate 19 19 16 Respiratory Effort / Characteristics Respiratory Depth Respiratory Pattern Blood Pressure Blood Pressure [Left Arm] Blood Pressure Mean Blood Pressure Mean [Left Arm] Blood Pressure Position Blood Pressure Position [Left Arm] Pulse Oximetry 97 97 97 Oxygen Delivery Method Oxygen Flow Rate 11/05/18 14:09 11/05/18 14:10 11/05/18 14:11 Temperature Temperature Source Sepsis Recent Fever Within 48 Hours Sepsis New/Unexplained Change in Mental Status Sepsis Action Taken by Nursing End-Tidal CO2 Pulse Rate 96 H 116 H 100 H Pulse Rate [Apical] Pulse Rate from SpO2 Sensor 91 H 105 H 97 H Pulse Rhythm Respiratory Rate 14 21 20 Respiratory Effort / Characteristics Respiratory Depth Respiratory Pattern Blood Pressure Blood Pressure [Left Arm] Blood Pressure Mean Blood Pressure Mean [Left Arm] Blood Pressure Position Blood Pressure Position [Left Arm] Pulse Oximetry 97 98 97 Oxygen Delivery Method Oxygen Flow Rate 11/05/18 14:12 11/05/18 14:13 11/05/18 14:14 Temperature Temperature Source Sepsis Recent Fever Within 48 Hours Sepsis New/Unexplained Change in Mental Status Sepsis Action Taken by Nursing End-Tidal CO2 Pulse Rate 101 H 107 H 114 H Pulse Rate [Apical] Pulse Rate from SpO2 Sensor 101 H 103 H 94 H Pulse Rhythm Respiratory Rate 20 17 16 Respiratory Effort / Characteristics Respiratory Depth Respiratory Pattern Blood Pressure Blood Pressure [Left Arm] Blood Pressure Mean Blood Pressure Mean [Left Arm] Blood Pressure Position Blood Pressure Position [Left Arm] Pulse Oximetry 98 97 97 Oxygen Delivery Method Oxygen Flow Rate 11/05/18 14:15 11/05/18 14:17 11/05/18 14:18 Temperature Temperature Source Sepsis Recent Fever Within 48 Hours Sepsis New/Unexplained Change in Mental Status Sepsis Action Taken by Nursing End-Tidal CO2 Pulse Rate 105 H 95 H 101 H Pulse Rate [Apical] 104 H Pulse Rate from SpO2 Sensor 109 H 99 H 97 H Pulse Rhythm Respiratory Rate 15 20 19 Respiratory Effort / Characteristics Non-Labored Spontaneous Respiratory Depth Normal Respiratory Pattern Regular Blood Pressure 147/107 H 142/90 H Blood Pressure [Left Arm] 147/107 H Blood Pressure Mean 120 107 Blood Pressure Mean [Left Arm] 120 Blood Pressure Position Blood Pressure Position [Left Arm] Lying Pulse Oximetry 98 98 97 Oxygen Delivery Method Room Air Oxygen Flow Rate 11/05/18 14:19 11/05/18 14:20 11/05/18 14:30 Temperature Temperature Source Sepsis Recent Fever Within 48 Hours Sepsis New/Unexplained Change in Mental Status Sepsis Action Taken by Nursing End-Tidal CO2 Pulse Rate 106 H 102 H 104 H Pulse Rate [Apical] Pulse Rate from SpO2 Sensor 101 H 100 H 98 H Pulse Rhythm Respiratory Rate 19 20 17 Respiratory Effort / Characteristics Respiratory Depth Respiratory Pattern Blood Pressure 137/93 Blood Pressure [Left Arm] Blood Pressure Mean 107 Blood Pressure Mean [Left Arm] Blood Pressure Position Blood Pressure Position [Left Arm] Pulse Oximetry 97 96 97 Oxygen Delivery Method Oxygen Flow Rate 11/05/18 14:32 11/05/18 14:33 11/05/18 14:34 Temperature Temperature Source Sepsis Recent Fever Within 48 Hours Sepsis New/Unexplained Change in Mental Status Sepsis Action Taken by Nursing End-Tidal CO2 Pulse Rate 103 H 90 101 H Pulse Rate [Apical] Pulse Rate from SpO2 Sensor 100 H 94 H 84 Pulse Rhythm Respiratory Rate 19 14 18 Respiratory Effort / Characteristics Respiratory Depth Respiratory Pattern Blood Pressure Blood Pressure [Left Arm] Blood Pressure Mean Blood Pressure Mean [Left Arm] Blood Pressure Position Blood Pressure Position [Left Arm] Pulse Oximetry 96 97 95 Oxygen Delivery Method Oxygen Flow Rate 11/05/18 14:35 11/05/18 14:36 11/05/18 14:37 Temperature Temperature Source Sepsis Recent Fever Within 48 Hours Sepsis New/Unexplained Change in Mental Status Sepsis Action Taken by Nursing End-Tidal CO2 Pulse Rate 108 H 105 H 96 H Pulse Rate [Apical] Pulse Rate from SpO2 Sensor 90 99 H 89 Pulse Rhythm Respiratory Rate 18 18 17 Respiratory Effort / Characteristics Respiratory Depth Respiratory Pattern Blood Pressure Blood Pressure [Left Arm] Blood Pressure Mean Blood Pressure Mean [Left Arm] Blood Pressure Position Blood Pressure Position [Left Arm] Pulse Oximetry 95 96 96 Oxygen Delivery Method Oxygen Flow Rate 11/05/18 14:38 11/05/18 14:39 11/05/18 14:40 Temperature Temperature Source Sepsis Recent Fever Within 48 Hours Sepsis New/Unexplained Change in Mental Status Sepsis Action Taken by Nursing End-Tidal CO2 Pulse Rate 99 H 87 103 H Pulse Rate [Apical] Pulse Rate from SpO2 Sensor 95 H 85 91 H Pulse Rhythm Respiratory Rate 16 16 16 Respiratory Effort / Characteristics Respiratory Depth Respiratory Pattern Blood Pressure Blood Pressure [Left Arm] Blood Pressure Mean Blood Pressure Mean [Left Arm] Blood Pressure Position Blood Pressure Position [Left Arm] Pulse Oximetry 96 96 95 Oxygen Delivery Method Oxygen Flow Rate 11/05/18 14:41 11/05/18 14:42 11/05/18 14:43 Temperature Temperature Source Sepsis Recent Fever Within 48 Hours Sepsis New/Unexplained Change in Mental Status Sepsis Action Taken by Nursing End-Tidal CO2 Pulse Rate 99 H 97 H 106 H Pulse Rate [Apical] Pulse Rate from SpO2 Sensor 83 92 H 94 H Pulse Rhythm Respiratory Rate 16 17 15 Respiratory Effort / Characteristics Respiratory Depth Respiratory Pattern Blood Pressure Blood Pressure [Left Arm] Blood Pressure Mean Blood Pressure Mean [Left Arm] Blood Pressure Position Blood Pressure Position [Left Arm] Pulse Oximetry 95 94 97 Oxygen Delivery Method Oxygen Flow Rate 11/05/18 14:44 11/05/18 14:45 11/05/18 14:46 Temperature Temperature Source Sepsis Recent Fever Within 48 Hours Sepsis New/Unexplained Change in Mental Status Sepsis Action Taken by Nursing End-Tidal CO2 Pulse Rate 106 H 102 H 94 H Pulse Rate [Apical] Pulse Rate from SpO2 Sensor 99 H 98 H 98 H Pulse Rhythm Respiratory Rate 15 14 17 Respiratory Effort / Characteristics Respiratory Depth Respiratory Pattern Blood Pressure Blood Pressure [Left Arm] Blood Pressure Mean Blood Pressure Mean [Left Arm] Blood Pressure Position Blood Pressure Position [Left Arm] Pulse Oximetry 97 98 97 Oxygen Delivery Method Oxygen Flow Rate 11/05/18 14:47 11/05/18 14:48 11/05/18 14:49 Temperature Temperature Source Sepsis Recent Fever Within 48 Hours Sepsis New/Unexplained Change in Mental Status Sepsis Action Taken by Nursing End-Tidal CO2 Pulse Rate 100 H 106 H 113 H Pulse Rate [Apical] Pulse Rate from SpO2 Sensor 101 H 105 H 107 H Pulse Rhythm Respiratory Rate 15 16 22 Respiratory Effort / Characteristics Respiratory Depth Respiratory Pattern Blood Pressure Blood Pressure [Left Arm] Blood Pressure Mean Blood Pressure Mean [Left Arm] Blood Pressure Position Blood Pressure Position [Left Arm] Pulse Oximetry 97 98 99 Oxygen Delivery Method Oxygen Flow Rate 11/05/18 14:50 11/05/18 14:51 11/05/18 14:52 Temperature Temperature Source Sepsis Recent Fever Within 48 Hours Sepsis New/Unexplained Change in Mental Status Sepsis Action Taken by Nursing End-Tidal CO2 Pulse Rate 98 H 107 H 104 H Pulse Rate [Apical] Pulse Rate from SpO2 Sensor 95 H 98 H 109 H Pulse Rhythm Respiratory Rate 21 18 18 Respiratory Effort / Characteristics Respiratory Depth Respiratory Pattern Blood Pressure Blood Pressure [Left Arm] Blood Pressure Mean Blood Pressure Mean [Left Arm] Blood Pressure Position Blood Pressure Position [Left Arm] Pulse Oximetry 98 98 97 Oxygen Delivery Method Oxygen Flow Rate 11/05/18 14:53 11/05/18 14:54 11/05/18 14:55 Temperature Temperature Source Sepsis Recent Fever Within 48 Hours Sepsis New/Unexplained Change in Mental Status Sepsis Action Taken by Nursing End-Tidal CO2 Pulse Rate 118 H 113 H 110 H Pulse Rate [Apical] Pulse Rate from SpO2 Sensor 119 H 119 H 125 H Pulse Rhythm Respiratory Rate 27 H 19 24 Respiratory Effort / Characteristics Respiratory Depth Respiratory Pattern Blood Pressure Blood Pressure [Left Arm] Blood Pressure Mean Blood Pressure Mean [Left Arm] Blood Pressure Position Blood Pressure Position [Left Arm] Pulse Oximetry 98 98 98 Oxygen Delivery Method Oxygen Flow Rate 11/05/18 14:56 11/05/18 14:57 11/05/18 14:58 Temperature Temperature Source Sepsis Recent Fever Within 48 Hours Sepsis New/Unexplained Change in Mental Status Sepsis Action Taken by Nursing End-Tidal CO2 Pulse Rate 118 H 96 H 107 H Pulse Rate [Apical] Pulse Rate from SpO2 Sensor 117 H 106 H 106 H Pulse Rhythm Respiratory Rate 24 15 16 Respiratory Effort / Characteristics Respiratory Depth Respiratory Pattern Blood Pressure Blood Pressure [Left Arm] Blood Pressure Mean Blood Pressure Mean [Left Arm] Blood Pressure Position Blood Pressure Position [Left Arm] Pulse Oximetry 97 97 97 Oxygen Delivery Method Oxygen Flow Rate 11/05/18 14:59 11/05/18 15:00 11/05/18 15:02 Temperature Temperature Source Sepsis Recent Fever Within 48 Hours Sepsis New/Unexplained Change in Mental Status Sepsis Action Taken by Nursing End-Tidal CO2 Pulse Rate 107 H 105 H 111 H Pulse Rate [Apical] Pulse Rate from SpO2 Sensor 97 H 109 H 103 H Pulse Rhythm Respiratory Rate 18 21 22 Respiratory Effort / Characteristics Respiratory Depth Respiratory Pattern Blood Pressure 128/91 Blood Pressure [Left Arm] Blood Pressure Mean 103 Blood Pressure Mean [Left Arm] Blood Pressure Position Blood Pressure Position [Left Arm] Pulse Oximetry 97 97 97 Oxygen Delivery Method Oxygen Flow Rate 11/05/18 15:03 11/05/18 15:04 11/05/18 15:05 Temperature Temperature Source Sepsis Recent Fever Within 48 Hours Sepsis New/Unexplained Change in Mental Status Sepsis Action Taken by Nursing End-Tidal CO2 Pulse Rate 112 H 107 H 112 H Pulse Rate [Apical] Pulse Rate from SpO2 Sensor 105 H 117 H 106 H Pulse Rhythm Respiratory Rate 24 26 H 21 Respiratory Effort / Characteristics Respiratory Depth Respiratory Pattern Blood Pressure Blood Pressure [Left Arm] Blood Pressure Mean Blood Pressure Mean [Left Arm] Blood Pressure Position Blood Pressure Position [Left Arm] Pulse Oximetry 97 98 98 Oxygen Delivery Method Oxygen Flow Rate 11/05/18 15:06 11/05/18 15:07 11/05/18 15:08 Temperature Temperature Source Sepsis Recent Fever Within 48 Hours Sepsis New/Unexplained Change in Mental Status Sepsis Action Taken by Nursing End-Tidal CO2 Pulse Rate 117 H 112 H 104 H Pulse Rate [Apical] Pulse Rate from SpO2 Sensor 116 H 97 H 117 H Pulse Rhythm Respiratory Rate 19 18 18 Respiratory Effort / Characteristics Respiratory Depth Respiratory Pattern Blood Pressure Blood Pressure [Left Arm] Blood Pressure Mean Blood Pressure Mean [Left Arm] Blood Pressure Position Blood Pressure Position [Left Arm] Pulse Oximetry 98 99 100 Oxygen Delivery Method Oxygen Flow Rate 11/05/18 15:09 11/05/18 15:10 11/05/18 15:11 Temperature Temperature Source Sepsis Recent Fever Within 48 Hours Sepsis New/Unexplained Change in Mental Status Sepsis Action Taken by Nursing End-Tidal CO2 29 Pulse Rate 98 H 127 H 125 H Pulse Rate [Apical] Pulse Rate from SpO2 Sensor 101 H 113 H 135 H Pulse Rhythm Respiratory Rate 20 22 20 Respiratory Effort / Characteristics Non-Labored Respiratory Depth Normal Respiratory Pattern Regular Blood Pressure 159/104 H Blood Pressure [Left Arm] Blood Pressure Mean 122 Blood Pressure Mean [Left Arm] Blood Pressure Position Blood Pressure Position [Left Arm] Pulse Oximetry 100 100 100 Oxygen Delivery Method Nasal Cannula Oxygen Flow Rate 2 11/05/18 15:13 11/05/18 15:14 11/05/18 15:15 Temperature Temperature Source Sepsis Recent Fever Within 48 Hours Sepsis New/Unexplained Change in Mental Status Sepsis Action Taken by Nursing End-Tidal CO2 27 26 24 Pulse Rate 114 H 133 H 120 H Pulse Rate [Apical] Pulse Rate from SpO2 Sensor 119 H 128 H 121 H Pulse Rhythm Respiratory Rate Respiratory Effort / Characteristics Respiratory Depth Respiratory Pattern Blood Pressure 153/121 H Blood Pressure [Left Arm] Blood Pressure Mean 131 Blood Pressure Mean [Left Arm] Blood Pressure Position Blood Pressure Position [Left Arm] Pulse Oximetry 100 100 99 Oxygen Delivery Method Oxygen Flow Rate 11/05/18 15:16 11/05/18 15:17 11/05/18 15:18 Temperature Temperature Source Sepsis Recent Fever Within 48 Hours Sepsis New/Unexplained Change in Mental Status Sepsis Action Taken by Nursing [facility]-Tidal CO2 23 23 Pulse Rate 143 H 119 H Pulse Rate [Apical] Pulse Rate from SpO2 Sensor 136 H 109 H Pulse Rhythm Respiratory Rate Respiratory Effort / Characteristics Non-Labored Respiratory Depth Normal Respiratory Pattern Regular Blood Pressure Blood Pressure [Left Arm] Blood Pressure Mean Blood Pressure Mean [Left Arm] Blood Pressure Position Blood Pressure Position [Left Arm] Pulse Oximetry 99 99 Oxygen Delivery Method Nasal Cannula Oxygen Flow Rate 2 11/05/18 15:19 11/05/18 15:20 11/05/18 15:21 Temperature Temperature Source Sepsis Recent Fever Within 48 Hours Sepsis New/Unexplained Change in Mental Status Sepsis Action Taken by Nursing End-Tidal CO2 22 22 Pulse Rate 128 H 117 H Pulse Rate [Apical] Pulse Rate from SpO2 Sensor 116 H 111 H Pulse Rhythm Respiratory Rate Respiratory Effort / Characteristics Non-Labored Respiratory Depth Normal Respiratory Pattern Regular Blood Pressure 140/110 H Blood Pressure [Left Arm] Blood Pressure Mean 120 Blood Pressure Mean [Left Arm] Blood Pressure Position Blood Pressure Position [Left Arm] Pulse Oximetry 99 99 Oxygen Delivery Method Nasal Cannula Oxygen Flow Rate 2 11/05/18 15:22 11/05/18 15:23 11/05/18 15:24 Temperature Temperature Source Sepsis Recent Fever Within 48 Hours Sepsis New/Unexplained Change in Mental Status Sepsis Action Taken by Nursing End-Tidal CO2 24 33 12 Pulse Rate 117 H 130 H 120 H Pulse Rate [Apical] Pulse Rate from SpO2 Sensor 115 H 125 H 121 H Pulse Rhythm Respiratory Rate Respiratory Effort / Characteristics Respiratory Depth Respiratory Pattern Blood Pressure Blood Pressure [Left Arm] Blood Pressure Mean Blood Pressure Mean [Left Arm] Blood Pressure Position Blood Pressure Position [Left Arm] Pulse Oximetry 99 99 99 Oxygen Delivery Method Oxygen Flow Rate 11/05/18 15:25 11/05/18 15:26 11/05/18 15:27 Temperature Temperature Source Sepsis Recent Fever Within 48 Hours Sepsis New/Unexplained Change in Mental Status Sepsis Action Taken by Nursing End-Tidal CO2 5 30 Pulse Rate 112 H 114 H Pulse Rate [Apical] Pulse Rate from SpO2 Sensor 112 H 99 H Pulse Rhythm Respiratory Rate Respiratory Effort / Characteristics Non-Labored Respiratory Depth Normal Respiratory Pattern Regular Blood Pressure 145/114 H Blood Pressure [Left Arm] Blood Pressure Mean 124 Blood Pressure Mean [Left Arm] Blood Pressure Position Blood Pressure Position [Left Arm] Pulse Oximetry 99 100 Oxygen Delivery Method Nasal Cannula Oxygen Flow Rate 2 11/05/18 15:28 11/05/18 15:29 11/05/18 15:30 Temperature Temperature Source Sepsis Recent Fever Within 48 Hours Sepsis New/Unexplained Change in Mental Status Sepsis Action Taken by Nursing End-Tidal CO2 27 12 14 Pulse Rate 105 H 123 H 127 H Pulse Rate [Apical] Pulse Rate from SpO2 Sensor 100 H 126 H 99 H Pulse Rhythm Respiratory Rate Respiratory Effort / Characteristics Respiratory Depth Respiratory Pattern Blood Pressure 135/103 H Blood Pressure [Left Arm] Blood Pressure Mean 113 Blood Pressure Mean [Left Arm] Blood Pressure Position Blood Pressure Position [Left Arm] Pulse Oximetry 99 99 99 Oxygen Delivery Method Oxygen Flow Rate 11/05/18 15:32 11/05/18 15:33 11/05/18 15:34 Temperature Temperature Source Sepsis Recent Fever Within 48 Hours Sepsis New/Unexplained Change in Mental Status Sepsis Action Taken by Nursing End-Tidal CO2 12 Pulse Rate 113 H 114 H 121 H Pulse Rate [Apical] Pulse Rate from SpO2 Sensor 122 H 112 H 108 H Pulse Rhythm Respiratory Rate Respiratory Effort / Characteristics Respiratory Depth Respiratory Pattern Blood Pressure Blood Pressure [Left Arm] Blood Pressure Mean Blood Pressure Mean [Left Arm] Blood Pressure Position Blood Pressure Position [Left Arm] Pulse Oximetry 99 98 97 Oxygen Delivery Method Oxygen Flow Rate 11/05/18 15:35 11/05/18 15:37 11/05/18 15:38 Temperature Temperature Source Sepsis Recent Fever Within 48 Hours Sepsis New/Unexplained Change in Mental Status Sepsis Action Taken by Nursing End-Tidal CO2 Pulse Rate 109 H 117 H 130 H Pulse Rate [Apical] Pulse Rate from SpO2 Sensor 102 H 105 H 116 H Pulse Rhythm Respiratory Rate Respiratory Effort / Characteristics Respiratory Depth Respiratory Pattern Blood Pressure 144/92 H Blood Pressure [Left Arm] Blood Pressure Mean 109 Blood Pressure Mean [Left Arm] Blood Pressure Position Blood Pressure Position [Left Arm] Pulse Oximetry 97 96 97 Oxygen Delivery Method Oxygen Flow Rate 11/05/18 15:39 11/05/18 15:40 11/05/18 15:42 Temperature Temperature Source Sepsis Recent Fever Within 48 Hours Sepsis New/Unexplained Change in Mental Status Sepsis Action Taken by Nursing End-Tidal CO2 Pulse Rate 138 H 99 H 111 H Pulse Rate [Apical] Pulse Rate from SpO2 Sensor 128 H 100 H 94 H Pulse Rhythm Respiratory Rate Respiratory Effort / Characteristics Respiratory Depth Respiratory Pattern Blood Pressure 155/98 H Blood Pressure [Left Arm] Blood Pressure Mean 117 Blood Pressure Mean [Left Arm] Blood Pressure Position Blood Pressure Position [Left Arm] Pulse Oximetry 97 97 97 Oxygen Delivery Method Oxygen Flow Rate 11/05/18 15:43 11/05/18 15:44 11/05/18 15:45 Temperature Temperature Source Sepsis Recent Fever Within 48 Hours Sepsis New/Unexplained Change in Mental Status Sepsis Action Taken by Nursing End-Tidal CO2 Pulse Rate 109 H 116 H 104 H Pulse Rate [Apical] Pulse Rate from SpO2 Sensor 114 H 106 H 104 H Pulse Rhythm Respiratory Rate Respiratory Effort / Characteristics Respiratory Depth Respiratory Pattern Blood Pressure 137/98 Blood Pressure [Left Arm] Blood Pressure Mean 111 Blood Pressure Mean [Left Arm] Blood Pressure Position Blood Pressure Position [Left Arm] Pulse Oximetry 97 97 98 Oxygen Delivery Method Oxygen Flow Rate 11/05/18 15:47 11/05/18 15:48 11/05/18 15:49 Temperature Temperature Source Sepsis Recent Fever Within 48 Hours Sepsis New/Unexplained Change in Mental Status Sepsis Action Taken by Nursing End-Tidal CO2 Pulse Rate 135 H 136 H 112 H Pulse Rate [Apical] Pulse Rate from SpO2 Sensor 121 H 115 H 105 H Pulse Rhythm Respiratory Rate Respiratory Effort / Characteristics Respiratory Depth Respiratory Pattern Blood Pressure Blood Pressure [Left Arm] Blood Pressure Mean Blood Pressure Mean [Left Arm] Blood Pressure Position Blood Pressure Position [Left Arm] Pulse Oximetry 98 98 98 Oxygen Delivery Method Oxygen Flow Rate 11/05/18 15:50 11/05/18 15:51 11/05/18 15:52 Temperature Temperature Source Sepsis Recent Fever Within 48 Hours Sepsis New/Unexplained Change in Mental Status Sepsis Action Taken by Nursing End-Tidal CO2 Pulse Rate 118 H 121 H 124 H Pulse Rate [Apical] Pulse Rate from SpO2 Sensor 100 H 118 H 120 H Pulse Rhythm Respiratory Rate Respiratory Effort / Characteristics Respiratory Depth Respiratory Pattern Blood Pressure 99/83 L Blood Pressure [Left Arm] Blood Pressure Mean 88 Blood Pressure Mean [Left Arm] Blood Pressure Position Blood Pressure Position [Left Arm] Pulse Oximetry 98 98 Oxygen Delivery Method Oxygen Flow Rate 11/05/18 15:53 11/05/18 15:54 11/05/18 15:55 Temperature Temperature Source Sepsis Recent Fever Within 48 Hours Sepsis New/Unexplained Change in Mental Status Sepsis Action Taken by Nursing End-Tidal CO2 Pulse Rate 111 H 126 H 109 H Pulse Rate [Apical] Pulse Rate from SpO2 Sensor 110 H 109 H 115 H Pulse Rhythm Respiratory Rate Respiratory Effort / Characteristics Respiratory Depth Respiratory Pattern Blood Pressure 131/110 H Blood Pressure [Left Arm] Blood Pressure Mean 117 Blood Pressure Mean [Left Arm] Blood Pressure Position Blood Pressure Position [Left Arm] Pulse Oximetry 97 97 96 Oxygen Delivery Method Oxygen Flow Rate 11/05/18 15:57 11/05/18 15:58 11/05/18 15:59 Temperature Temperature Source Sepsis Recent Fever Within 48 Hours Sepsis New/Unexplained Change in Mental Status Sepsis Action Taken by Nursing End-Tidal CO2 Pulse Rate 110 H 102 H 123 H Pulse Rate [Apical] Pulse Rate from SpO2 Sensor 108 H 100 H 107 H Pulse Rhythm Respiratory Rate Respiratory Effort / Characteristics Respiratory Depth Respiratory Pattern Blood Pressure Blood Pressure [Left Arm] Blood Pressure Mean Blood Pressure Mean [Left Arm] Blood Pressure Position Blood Pressure Position [Left Arm] Pulse Oximetry 97 96 96 Oxygen Delivery Method Oxygen Flow Rate 11/05/18 16:00 11/05/18 16:02 11/05/18 16:03 Temperature Temperature Source Sepsis Recent Fever Within 48 Hours Sepsis New/Unexplained Change in Mental Status Sepsis Action Taken by Nursing End-Tidal CO2 Pulse Rate 109 H 109 H 115 H Pulse Rate [Apical] Pulse Rate from SpO2 Sensor 116 H 92 H 104 H Pulse Rhythm Respiratory Rate Respiratory Effort / Characteristics Respiratory Depth Respiratory Pattern Blood Pressure 145/99 H Blood Pressure [Left Arm] Blood Pressure Mean 114 Blood Pressure Mean [Left Arm] Blood Pressure Position Blood Pressure Position [Left Arm] Pulse Oximetry 97 97 98 Oxygen Delivery Method Oxygen Flow Rate 11/05/18 16:04 11/05/18 16:05 11/05/18 16:07 Temperature Temperature Source Sepsis Recent Fever Within 48 Hours Sepsis New/Unexplained Change in Mental Status Sepsis Action Taken by Nursing End-Tidal CO2 Pulse Rate 108 H 113 H 104 H Pulse Rate [Apical] Pulse Rate from SpO2 Sensor 107 H 109 H 103 H Pulse Rhythm Respiratory Rate Respiratory Effort / Characteristics Respiratory Depth Respiratory Pattern Blood Pressure 107/89 Blood Pressure [Left Arm] Blood Pressure Mean 95 Blood Pressure Mean [Left Arm] Blood Pressure Position Blood Pressure Position [Left Arm] Pulse Oximetry 98 98 98 Oxygen Delivery Method Room Air Oxygen Flow Rate 11/05/18 16:08 11/05/18 16:09 11/05/18 16:10 Temperature Temperature Source Sepsis Recent Fever Within 48 Hours Sepsis New/Unexplained Change in Mental Status Sepsis Action Taken by Nursing End-Tidal CO2 Pulse Rate 125 H 117 H 104 H Pulse Rate [Apical] Pulse Rate from SpO2 Sensor 112 H 112 H 96 H Pulse Rhythm Respiratory Rate Respiratory Effort / Characteristics Respiratory Depth Respiratory Pattern Blood Pressure 137/91 Blood Pressure [Left Arm] Blood Pressure Mean 106 Blood Pressure Mean [Left Arm] Blood Pressure Position Blood Pressure Position [Left Arm] Pulse Oximetry 97 97 96 Oxygen Delivery Method Oxygen Flow Rate 11/05/18 16:12 11/05/18 16:13 11/05/18 16:14 Temperature Temperature Source Sepsis Recent Fever Within 48 Hours Sepsis New/Unexplained Change in Mental Status Sepsis Action Taken by Nursing End-Tidal CO2 Pulse Rate 109 H 116 H 113 H Pulse Rate [Apical] Pulse Rate from SpO2 Sensor 102 H 109 H 90 Pulse Rhythm Respiratory Rate Respiratory Effort / Characteristics Respiratory Depth Respiratory Pattern Blood Pressure Blood Pressure [Left Arm] Blood Pressure Mean Blood Pressure Mean [Left Arm] Blood Pressure Position Blood Pressure Position [Left Arm] Pulse Oximetry 96 97 96 Oxygen Delivery Method Oxygen Flow Rate 11/05/18 16:15 11/05/18 16:17 11/05/18 16:18 Temperature Temperature Source Sepsis Recent Fever Within 48 Hours Sepsis New/Unexplained Change in Mental Status Sepsis Action Taken by Nursing End-Tidal CO2 Pulse Rate 108 H 106 H 114 H Pulse Rate [Apical] Pulse Rate from SpO2 Sensor 103 H 113 H 111 H Pulse Rhythm Respiratory Rate Respiratory Effort / Characteristics Respiratory Depth Respiratory Pattern Blood Pressure 141/96 H Blood Pressure [Left Arm] Blood Pressure Mean 111 Blood Pressure Mean [Left Arm] Blood Pressure Position Blood Pressure Position [Left Arm] Pulse Oximetry 96 96 96 Oxygen Delivery Method Oxygen Flow Rate 11/05/18 16:19 11/05/18 16:20 11/05/18 16:29 Temperature Temperature Source Sepsis Recent Fever Within 48 Hours Sepsis New/Unexplained Change in Mental Status Sepsis Action Taken by Nursing End-Tidal CO2 Pulse Rate 112 H 125 H 105 H Pulse Rate [Apical] Pulse Rate from SpO2 Sensor 104 H 103 H Pulse Rhythm Respiratory Rate Respiratory Effort / Characteristics Respiratory Depth Respiratory Pattern Blood Pressure 132/100 Blood Pressure [Left Arm] Blood Pressure Mean 110 Blood Pressure Mean [Left Arm] Blood Pressure Position Blood Pressure Position [Left Arm] Pulse Oximetry 97 Oxygen Delivery Method Oxygen Flow Rate 11/05/18 16:30 11/05/18 16:32 11/05/18 16:33 Temperature Temperature Source Sepsis Recent Fever Within 48 Hours Sepsis New/Unexplained Change in Mental Status Sepsis Action Taken by Nursing End-Tidal CO2 Pulse Rate 118 H 106 H 101 H Pulse Rate [Apical] Pulse Rate from SpO2 Sensor 103 H 109 H 104 H Pulse Rhythm Respiratory Rate Respiratory Effort / Characteristics Respiratory Depth Respiratory Pattern Blood Pressure 146/86 H Blood Pressure [Left Arm] Blood Pressure Mean 106 Blood Pressure Mean [Left Arm] Blood Pressure Position Blood Pressure Position [Left Arm] Pulse Oximetry 96 96 96 Oxygen Delivery Method Oxygen Flow Rate 11/05/18 16:34 11/05/18 16:35 11/05/18 16:36 Temperature Temperature Source Sepsis Recent Fever Within 48 Hours Sepsis New/Unexplained Change in Mental Status Sepsis Action Taken by Nursing End-Tidal CO2 Pulse Rate 113 H 110 H 116 H Pulse Rate [Apical] Pulse Rate from SpO2 Sensor 108 H 111 H 112 H Pulse Rhythm Respiratory Rate Respiratory Effort / Characteristics Respiratory Depth Respiratory Pattern Blood Pressure Blood Pressure [Left Arm] Blood Pressure Mean Blood Pressure Mean [Left Arm] Blood Pressure Position Blood Pressure Position [Left Arm] Pulse Oximetry 96 96 97 Oxygen Delivery Method Oxygen Flow Rate 11/05/18 16:37 11/05/18 16:38 11/05/18 16:39 Temperature Temperature Source Sepsis Recent Fever Within 48 Hours Sepsis New/Unexplained Change in Mental Status Sepsis Action Taken by Nursing End-Tidal CO2 Pulse Rate 104 H 103 H 114 H Pulse Rate [Apical] Pulse Rate from SpO2 Sensor 119 H 108 H 110 H Pulse Rhythm Respiratory Rate Respiratory Effort / Characteristics Respiratory Depth Respiratory Pattern Blood Pressure Blood Pressure [Left Arm] Blood Pressure Mean Blood Pressure Mean [Left Arm] Blood Pressure Position Blood Pressure Position [Left Arm] Pulse Oximetry 95 97 97 Oxygen Delivery Method Oxygen Flow Rate 11/05/18 16:40 11/05/18 16:41 11/05/18 16:42 Temperature Temperature Source Sepsis Recent Fever Within 48 Hours Sepsis New/Unexplained Change in Mental Status Sepsis Action Taken by Nursing End-Tidal CO2 Pulse Rate 111 H 118 H 113 H Pulse Rate [Apical] Pulse Rate from SpO2 Sensor 101 H 116 H 106 H Pulse Rhythm Respiratory Rate Respiratory Effort / Characteristics Respiratory Depth Respiratory Pattern Blood Pressure Blood Pressure [Left Arm] Blood Pressure Mean Blood Pressure Mean [Left Arm] Blood Pressure Position Blood Pressure Position [Left Arm] Pulse Oximetry 97 97 97 Oxygen Delivery Method Oxygen Flow Rate 11/05/18 16:43 11/05/18 16:44 11/05/18 16:45 Temperature Temperature Source Sepsis Recent Fever Within 48 Hours Sepsis New/Unexplained Change in Mental Status Sepsis Action Taken by Nursing End-Tidal CO2 Pulse Rate 100 H 104 H 88 Pulse Rate [Apical] Pulse Rate from SpO2 Sensor 102 H 108 H 95 H Pulse Rhythm Respiratory Rate 18 Respiratory Effort / Characteristics Respiratory Depth Respiratory Pattern Blood Pressure 128/83 Blood Pressure [Left Arm] Blood Pressure Mean 98 Blood Pressure Mean [Left Arm] Blood Pressure Position Blood Pressure Position [Left Arm] Pulse Oximetry 95 95 95 Oxygen Delivery Method Oxygen Flow Rate 11/05/18 16:47 11/05/18 16:48 11/05/18 16:49 Temperature Temperature Source Sepsis Recent Fever Within 48 Hours Sepsis New/Unexplained Change in Mental Status Sepsis Action Taken by Nursing End-Tidal CO2 Pulse Rate 93 H 82 94 H Pulse Rate [Apical] Pulse Rate from SpO2 Sensor 94 H 83 92 H Pulse Rhythm Respiratory Rate Respiratory Effort / Characteristics Respiratory Depth Respiratory Pattern Blood Pressure Blood Pressure [Left Arm] Blood Pressure Mean Blood Pressure Mean [Left Arm] Blood Pressure Position Blood Pressure Position [Left Arm] Pulse Oximetry 94 94 97 Oxygen Delivery Method Oxygen Flow Rate 11/05/18 16:50 11/05/18 16:51 Temperature Temperature Source Sepsis Recent Fever Within 48 Hours Sepsis New/Unexplained Change in Mental Status Sepsis Action Taken by Nursing End-Tidal CO2 Pulse Rate 95 H 83 Pulse Rate [Apical] Pulse Rate from SpO2 Sensor 96 H 84 Pulse Rhythm Respiratory Rate Respiratory Effort / Characteristics Respiratory Depth Respiratory Pattern Blood Pressure Blood Pressure [Left Arm] Blood Pressure Mean Blood Pressure Mean [Left Arm] Blood Pressure Position Blood Pressure Position [Left Arm] Pulse Oximetry 94 95 Oxygen Delivery Method Oxygen Flow Rate Home Medications Current Medication List: was personally reviewed by me Laboratory Data Attestation: I reviewed the patient's lab results. Result diagrams: 11/05/18 13:33 11/05/18 13:33 Lab Results 11/05/18 11/05/18 11/05/18 Range/Units 13:33 13:33 13:33 WBC 7.71 (4.8-10.8) K/uL RBC 4.46 (4.2-5.4) M/uL Hgb 11.9 L (12.0-16.0) g/dL Hct 36.4 L (37-47) % MCV 81.6 (80-100) fL MCH 26.7 (25-34) pg MCHC 32.7 (32-36) g/dL RDW Std Deviation 45.0 (36.4-46.3) fL RDW Coeff of Da 15.0 H (11.5-14.5) % Plt Count 301 (130-400) K/uL MPV 11.4 H (7.4-10.4) fL Immature Gran % (Auto) 0.1 % Neut % (Auto) 65.4 % Lymph % (Auto) 26.8 % Hidalgo % (Auto) 4.8 % Eos % (Auto) 2.6 % Baso % (Auto) 0.3 % Immature Gran # (Auto) 0.01 (0.00-0.02) K/uL Neut # (Auto) 5.04 (1.4-6.5) K/uL Lymph # (Auto) 2.07 (1.2-3.4) K/uL Hidalgo # (Auto) 0.37 (0.11-0.59) K/uL Eos # (Auto) 0.20 (0-0.5) K/uL Baso # (Auto) 0.02 (0-0.2) K/uL PT 11.3 (9.0-12.0) Seconds INR 1.1 (0.9-1.1) APTT 28.9 (21.0-31.0) Seconds PTT Ratio 1.1 Sodium 141 (136-145) mmol/L Potassium 4.2 (3.5-5.1) mmol/L Chloride 108 H (98-107) mmol/L Carbon Dioxide 28 (21-32) mmol/L Anion Gap 5.0 (3-11) BUN 10 (7-18) mg/dl Creatinine 0.66 (0.6-1.2) mg/dl Est Cr Clr Drug Dosing 111.1 ml/min Est GFR ( Amer) 107.4 Est GFR (Non-Af Amer) 92.7 BUN/Creatinine Ratio 14.8 (10-20) Glucose 122 H (70-99) mg/dl Calcium 9.0 (8.5-10.1) mg/dl Magnesium 2.2 (1.8-2.4) mg/dl Troponin I < 0.015 (0-0.045) ng/ml NT-Pro-B Natriuret Pep 1004 H (0-900) pg/ml TSH 2.380 (0.300-4.500) uIu/ml Administered Medications Diltiazem HCl 125 mg/ Dextrose 125 mls @ 7.5 mls/hr IV .[id number] [facility]; Protocol Stop: 12/05/18 16:29 Last Titration: 11/05/18 17:38 Dose: 7.5 mg/hr, 7.5 mls/hr Documented by: [id number] Cosigned by: [id number] Admin: 11/05/18 16:36 Dose: 7.5 mg/hr, 7.5 mls/hr Documented by: [id number] Cosigned by: [id number] Discontinued Medications Diltiazem HCl (Cardizem) 10 mg IV NOW STA Stop: 11/05/18 15:30 Last Admin: 11/05/18 16:36 Dose: 10 mg Documented by: [id number] Cosigned by: [id number] Etomidate (Amidate) Confirm Administered Dose 40 mg IV .STK-MED ONE Stop: 11/05/18 15:01 Last Admin: 11/05/18 16:17 Dose: Not Given Documented by: [id number] Etomidate (Amidate) 10 mg IV TODAY@1312 ONE Stop: 11/05/18 13:13 Last Admin: 11/05/18 15:12 Dose: 10 mg Documented by: [id number] Metoprolol Tartrate (Lopressor) 5 mg IV NOW STA Stop: 11/05/18 12:51 Last Admin: 11/05/18 13:22 Dose: 5 mg Documented by: [id number] Metoprolol Tartrate (Lopressor) 5 mg IV NOW STA Stop: 11/05/18 13:37 Last Admin: 11/05/18 14:16 Dose: 5 mg Documented by: [id number] Imaging Data Radiologist's Impression: Radiology results as stated below per my review and the radiologist's interpretation: XR chest 1V portable CLINICAL HISTORY: 63 years-old Female presenting with afib, weak, chf. TECHNIQUE: Portable upright AP view of the chest was obtained. COMPARISON: None. FINDINGS: Atherosclerosis of the aortic arch. Cardiac silhouette enlarged. Mild pulmonary vascular prominence. Lungs and pleural spaces clear. Degenerative changes of the thoracic spine. Upper abdomen normal. IMPRESSION: 1. Cardiomegaly with mild volume overload. No significant congestive change or kendell pulmonary edema. Electronically signed by: Jamal Holm M.D. 11/05/2018 1:30 PM Blood Pressure Blood Pressure Findings: Elevated blood pressure Blood Pressure Disposition: further management by hospitalist Discharge Plan Visit Data *Final* Discharge Date/Time: 11/05/18 17:20 Chief Complaint: Cardiac Assessment Stated Complaint: THINKS IS IN AFIB ED Provider: Hardeep Costello Discharge Problem: Atrial fibrillation with RVR Patient Disposition: Admitted As Inpatient Discharge Instructions Interventions: ED Discharge Assessment Last Done: 11/05/18 17:20 The scribe's documentation has been prepared under my direction and personally reviewed by me in its entirety. I confirm that the note above accurately reflects all work, treatment, procedures, and medical decision making performed by me.
--- NOTE | 2018-11-05 18:30 | Emergency Department Note ---
Pre Sedation Assessment Vital Signs Temp Pulse Pulse Resp BP BP Pulse Ox 11/05/18 16:51 83 95 11/05/18 16:50 95 H 94 11/05/18 16:49 94 H 97 11/05/18 16:48 82 94 11/05/18 16:47 93 H 94 11/05/18 16:45 88 18 128/83 95 11/05/18 16:44 104 H 95 11/05/18 16:43 100 H 95 11/05/18 16:42 113 H 97 11/05/18 16:41 118 H 97 11/05/18 16:40 111 H 97 11/05/18 16:39 114 H 97 11/05/18 16:38 103 H 97 11/05/18 16:37 104 H 95 11/05/18 16:36 116 H 97 11/05/18 16:35 110 H 96 11/05/18 16:34 113 H 96 11/05/18 16:33 101 H 96 11/05/18 16:32 106 H 96 11/05/18 16:30 118 H 146/86 H 96 11/05/18 16:29 105 H 132/100 11/05/18 16:20 125 H 11/05/18 16:19 112 H 97 11/05/18 16:18 114 H 96 11/05/18 16:17 106 H 96 11/05/18 16:15 108 H 141/96 H 96 11/05/18 16:14 113 H 96 11/05/18 16:13 116 H 97 11/05/18 16:12 109 H 96 11/05/18 16:10 104 H 137/91 96 11/05/18 16:09 117 H 97 11/05/18 16:08 125 H 97 11/05/18 16:07 104 H 98 11/05/18 16:05 113 H 107/89 98 11/05/18 16:04 108 H 98 11/05/18 16:03 115 H 98 11/05/18 16:02 109 H 97 11/05/18 16:00 109 H 145/99 H 97 11/05/18 15:59 123 H 96 11/05/18 15:58 102 H 96 11/05/18 15:57 110 H 97 11/05/18 15:55 109 H 131/110 H 96 11/05/18 15:54 126 H 97 11/05/18 15:53 111 H 97 11/05/18 15:52 124 H 98 11/05/18 15:51 121 H 99/83 L 98 11/05/18 15:50 118 H 11/05/18 15:49 112 H 98 11/05/18 15:48 136 H 98 11/05/18 15:47 135 H 98 11/05/18 15:45 104 H 137/98 98 11/05/18 15:44 116 H 97 11/05/18 15:43 109 H 97 11/05/18 15:42 111 H 97 11/05/18 15:40 99 H 155/98 H 97 11/05/18 15:39 138 H 97 11/05/18 15:38 130 H 97 11/05/18 15:37 117 H 96 11/05/18 15:35 109 H 144/92 H 97 11/05/18 15:34 121 H 97 11/05/18 15:33 114 H 98 11/05/18 15:32 113 H 99 11/05/18 15:30 127 H 135/103 H 99 11/05/18 15:29 123 H 99 11/05/18 15:28 105 H 99 11/05/18 15:27 114 H 100 11/05/18 15:25 112 H 145/114 H 99 11/05/18 15:24 120 H 99 11/05/18 15:23 130 H 99 11/05/18 15:22 117 H 99 11/05/18 15:20 117 H 140/110 H 99 11/05/18 15:19 128 H 99 11/05/18 15:18 119 H 99 11/05/18 15:17 143 H 99 11/05/18 15:15 120 H 153/121 H 99 11/05/18 15:14 133 H 100 11/05/18 15:13 114 H 100 11/05/18 15:11 125 H 20 159/104 H 100 11/05/18 15:10 127 H 22 100 11/05/18 15:09 98 H 20 100 11/05/18 15:08 104 H 18 100 11/05/18 15:07 112 H 18 99 11/05/18 15:06 117 H 19 98 11/05/18 15:05 112 H 21 98 11/05/18 15:04 107 H 26 H 98 11/05/18 15:03 112 H 24 97 11/05/18 15:02 111 H 22 97 11/05/18 15:00 105 H 21 128/91 97 11/05/18 14:59 107 H 18 97 11/05/18 14:58 107 H 16 97 11/05/18 14:57 96 H 15 97 11/05/18 14:56 118 H 24 97 11/05/18 14:55 110 H 24 98 11/05/18 14:54 113 H 19 98 11/05/18 14:53 118 H 27 H 98 11/05/18 14:52 104 H 18 97 11/05/18 14:51 107 H 18 98 11/05/18 14:50 98 H 21 98 11/05/18 14:49 113 H 22 99 11/05/18 14:48 106 H 16 98 11/05/18 14:47 100 H 15 97 11/05/18 14:46 94 H 17 97 11/05/18 14:45 102 H 14 98 11/05/18 14:44 106 H 15 97 11/05/18 14:43 106 H 15 97 11/05/18 14:42 97 H 17 94 11/05/18 14:41 99 H 16 95 11/05/18 14:40 103 H 16 95 11/05/18 14:39 87 16 96 11/05/18 14:38 99 H 16 96 11/05/18 14:37 96 H 17 96 11/05/18 14:36 105 H 18 96 11/05/18 14:35 108 H 18 95 11/05/18 14:34 101 H 18 95 11/05/18 14:33 90 14 97 11/05/18 14:32 103 H 19 96 11/05/18 14:30 104 H 17 137/93 97 11/05/18 14:20 102 H 20 96 11/05/18 14:19 106 H 19 97 11/05/18 14:18 101 H 19 142/90 H 97 11/05/18 14:17 95 H 104 H 20 147/107 H 98 11/05/18 14:15 105 H 15 147/107 H 98 11/05/18 14:14 114 H 16 97 11/05/18 14:13 107 H 17 97 11/05/18 14:12 101 H 20 98 11/05/18 14:11 100 H 20 97 11/05/18 14:10 116 H 21 98 11/05/18 14:09 96 H 14 97 11/05/18 14:08 92 H 16 97 11/05/18 14:07 108 H 19 97 11/05/18 14:06 97 H 19 97 11/05/18 14:05 104 H 20 97 11/05/18 14:04 113 H 15 98 11/05/18 14:03 120 H 19 97 11/05/18 14:02 102 H 22 97 11/05/18 14:01 101 H 21 97 11/05/18 14:00 109 H 15 97 11/05/18 13:59 99 H 20 98 11/05/18 13:58 105 H 20 97 11/05/18 13:57 107 H 20 98 11/05/18 13:56 101 H 20 97 11/05/18 13:55 114 H 18 98 11/05/18 13:54 118 H 20 98 11/05/18 13:53 118 H 22 97 11/05/18 13:52 127 H 19 93 11/05/18 13:51 111 H 17 97 11/05/18 13:47 109 H 18 97 11/05/18 13:46 92 H 20 97 11/05/18 13:45 98 H 20 97 11/05/18 13:44 96 H 19 98 11/05/18 13:43 100 H 16 97 11/05/18 13:42 95 H 18 97 11/05/18 13:41 106 H 17 97 11/05/18 13:40 98 H 15 97 11/05/18 13:39 99 H 18 98 11/05/18 13:38 97 H 14 98 11/05/18 13:37 99 H 16 98 11/05/18 13:36 100 H 17 98 11/05/18 13:35 108 H 13 97 11/05/18 13:34 113 H 22 97 11/05/18 13:33 103 H 23 97 11/05/18 13:32 97 H 19 97 11/05/18 13:30 104 H 22 148/104 H 97 11/05/18 13:29 117 H 16 97 11/05/18 13:28 110 H 15 98 11/05/18 13:26 128 H 21 98 11/05/18 13:25 134 H 101 H 19 137/106 H 137/106 H 98 11/05/18 13:24 112 H 22 99 11/05/18 13:23 108 H 19 97 11/05/18 13:22 105 H 16 136/106 H 96 11/05/18 13:21 112 H 16 97 11/05/18 13:20 100 H 18 98 11/05/18 13:19 95 H 17 97 11/05/18 13:18 98 H 16 96 11/05/18 13:17 111 H 17 97 11/05/18 13:16 106 H 17 96 11/05/18 13:15 105 H 18 97 11/05/18 13:05 101 H 20 136/106 H 97 11/05/18 13:00 111 H 17 136/106 H 97 11/05/18 12:55 109 H 18 140/89 97 11/05/18 12:54 112 H 14 97 11/05/18 11:57 36.7 C 104 H 20 140/87 94 Pre-Sedation Airway Assessment Smoking Status: Never smoker Short, Thick Neck: Yes Thyromental Distance: > or= 3.5 Finger Breadths Oral Cavity: + WNL Mallampati Class: II ASA: ASA2 NPO Status Date of Last Intake of Fluids: 11/04/18 Time of Last Intake of Fluids: 22:00 Notes The planned sedation has been discussed with the patient. Informed Consent was obtained. I have identified the patient, determined the appropriateness of sedation and have assessed the patient immediately prior to the procedure. All medicine(s) and interventions are by my order.
--- NOTE | 2018-11-05 18:31 | Emergency Department Note ---
Post Sedation Assessment Vital Signs Temp Pulse Pulse Resp BP BP Pulse Ox 11/05/18 16:51 83 95 11/05/18 16:50 95 H 94 11/05/18 16:49 94 H 97 11/05/18 16:48 82 94 11/05/18 16:47 93 H 94 11/05/18 16:45 88 18 128/83 95 11/05/18 16:44 104 H 95 11/05/18 16:43 100 H 95 11/05/18 16:42 113 H 97 11/05/18 16:41 118 H 97 11/05/18 16:40 111 H 97 11/05/18 16:39 114 H 97 11/05/18 16:38 103 H 97 11/05/18 16:37 104 H 95 11/05/18 16:36 116 H 97 11/05/18 16:35 110 H 96 11/05/18 16:34 113 H 96 11/05/18 16:33 101 H 96 11/05/18 16:32 106 H 96 11/05/18 16:30 118 H 146/86 H 96 11/05/18 16:29 105 H 132/100 11/05/18 16:20 125 H 11/05/18 16:19 112 H 97 11/05/18 16:18 114 H 96 11/05/18 16:17 106 H 96 11/05/18 16:15 108 H 141/96 H 96 11/05/18 16:14 113 H 96 11/05/18 16:13 116 H 97 11/05/18 16:12 109 H 96 11/05/18 16:10 104 H 137/91 96 11/05/18 16:09 117 H 97 11/05/18 16:08 125 H 97 11/05/18 16:07 104 H 98 11/05/18 16:05 113 H 107/89 98 11/05/18 16:04 108 H 98 11/05/18 16:03 115 H 98 11/05/18 16:02 109 H 97 11/05/18 16:00 109 H 145/99 H 97 11/05/18 15:59 123 H 96 11/05/18 15:58 102 H 96 11/05/18 15:57 110 H 97 11/05/18 15:55 109 H 131/110 H 96 11/05/18 15:54 126 H 97 11/05/18 15:53 111 H 97 11/05/18 15:52 124 H 98 11/05/18 15:51 121 H 99/83 L 98 11/05/18 15:50 118 H 11/05/18 15:49 112 H 98 11/05/18 15:48 136 H 98 11/05/18 15:47 135 H 98 11/05/18 15:45 104 H 137/98 98 11/05/18 15:44 116 H 97 11/05/18 15:43 109 H 97 11/05/18 15:42 111 H 97 11/05/18 15:40 99 H 155/98 H 97 11/05/18 15:39 138 H 97 11/05/18 15:38 130 H 97 11/05/18 15:37 117 H 96 11/05/18 15:35 109 H 144/92 H 97 11/05/18 15:34 121 H 97 11/05/18 15:33 114 H 98 11/05/18 15:32 113 H 99 11/05/18 15:30 127 H 135/103 H 99 11/05/18 15:29 123 H 99 11/05/18 15:28 105 H 99 11/05/18 15:27 114 H 100 11/05/18 15:25 112 H 145/114 H 99 11/05/18 15:24 120 H 99 11/05/18 15:23 130 H 99 11/05/18 15:22 117 H 99 11/05/18 15:20 117 H 140/110 H 99 11/05/18 15:19 128 H 99 11/05/18 15:18 119 H 99 11/05/18 15:17 143 H 99 11/05/18 15:15 120 H 153/121 H 99 11/05/18 15:14 133 H 100 11/05/18 15:13 114 H 100 11/05/18 15:11 125 H 20 159/104 H 100 11/05/18 15:10 127 H 22 100 11/05/18 15:09 98 H 20 100 11/05/18 15:08 104 H 18 100 11/05/18 15:07 112 H 18 99 11/05/18 15:06 117 H 19 98 11/05/18 15:05 112 H 21 98 11/05/18 15:04 107 H 26 H 98 11/05/18 15:03 112 H 24 97 11/05/18 15:02 111 H 22 97 11/05/18 15:00 105 H 21 128/91 97 11/05/18 14:59 107 H 18 97 11/05/18 14:58 107 H 16 97 11/05/18 14:57 96 H 15 97 11/05/18 14:56 118 H 24 97 11/05/18 14:55 110 H 24 98 11/05/18 14:54 113 H 19 98 11/05/18 14:53 118 H 27 H 98 11/05/18 14:52 104 H 18 97 11/05/18 14:51 107 H 18 98 11/05/18 14:50 98 H 21 98 11/05/18 14:49 113 H 22 99 11/05/18 14:48 106 H 16 98 11/05/18 14:47 100 H 15 97 11/05/18 14:46 94 H 17 97 11/05/18 14:45 102 H 14 98 11/05/18 14:44 106 H 15 97 11/05/18 14:43 106 H 15 97 11/05/18 14:42 97 H 17 94 11/05/18 14:41 99 H 16 95 11/05/18 14:40 103 H 16 95 11/05/18 14:39 87 16 96 11/05/18 14:38 99 H 16 96 11/05/18 14:37 96 H 17 96 11/05/18 14:36 105 H 18 96 11/05/18 14:35 108 H 18 95 11/05/18 14:34 101 H 18 95 11/05/18 14:33 90 14 97 11/05/18 14:32 103 H 19 96 11/05/18 14:30 104 H 17 137/93 97 11/05/18 14:20 102 H 20 96 11/05/18 14:19 106 H 19 97 11/05/18 14:18 101 H 19 142/90 H 97 11/05/18 14:17 95 H 104 H 20 147/107 H 98 11/05/18 14:15 105 H 15 147/107 H 98 11/05/18 14:14 114 H 16 97 11/05/18 14:13 107 H 17 97 11/05/18 14:12 101 H 20 98 11/05/18 14:11 100 H 20 97 11/05/18 14:10 116 H 21 98 11/05/18 14:09 96 H 14 97 11/05/18 14:08 92 H 16 97 11/05/18 14:07 108 H 19 97 11/05/18 14:06 97 H 19 97 11/05/18 14:05 104 H 20 97 11/05/18 14:04 113 H 15 98 11/05/18 14:03 120 H 19 97 11/05/18 14:02 102 H 22 97 11/05/18 14:01 101 H 21 97 11/05/18 14:00 109 H 15 97 11/05/18 13:59 99 H 20 98 11/05/18 13:58 105 H 20 97 11/05/18 13:57 107 H 20 98 11/05/18 13:56 101 H 20 97 11/05/18 13:55 114 H 18 98 11/05/18 13:54 118 H 20 98 11/05/18 13:53 118 H 22 97 11/05/18 13:52 127 H 19 93 11/05/18 13:51 111 H 17 97 11/05/18 13:47 109 H 18 97 11/05/18 13:46 92 H 20 97 11/05/18 13:45 98 H 20 97 11/05/18 13:44 96 H 19 98 11/05/18 13:43 100 H 16 97 11/05/18 13:42 95 H 18 97 11/05/18 13:41 106 H 17 97 11/05/18 13:40 98 H 15 97 11/05/18 13:39 99 H 18 98 11/05/18 13:38 97 H 14 98 11/05/18 13:37 99 H 16 98 11/05/18 13:36 100 H 17 98 11/05/18 13:35 108 H 13 97 11/05/18 13:34 113 H 22 97 11/05/18 13:33 103 H 23 97 11/05/18 13:32 97 H 19 97 11/05/18 13:30 104 H 22 148/104 H 97 11/05/18 13:29 117 H 16 97 11/05/18 13:28 110 H 15 98 11/05/18 13:26 128 H 21 98 11/05/18 13:25 134 H 101 H 19 137/106 H 137/106 H 98 11/05/18 13:24 112 H 22 99 11/05/18 13:23 108 H 19 97 11/05/18 13:22 105 H 16 136/106 H 96 11/05/18 13:21 112 H 16 97 11/05/18 13:20 100 H 18 98 11/05/18 13:19 95 H 17 97 11/05/18 13:18 98 H 16 96 11/05/18 13:17 111 H 17 97 11/05/18 13:16 106 H 17 96 11/05/18 13:15 105 H 18 97 11/05/18 13:05 101 H 20 136/106 H 97 11/05/18 13:00 111 H 17 136/106 H 97 11/05/18 12:55 109 H 18 140/89 97 11/05/18 12:54 112 H 14 97 11/05/18 11:57 36.7 C 104 H 20 140/87 94 Post Sedation Plan On clinical assessment, the patient appears to have tolerated the sedation without complications. Patient is recovering as anticipated. Patient will continue to be monitored by nursing and may be discharged when sedation discharge criteria are met per below protocol. Upon Completions of procedure and additional 15 minutes continue every 5 minute vital signs and the P.A.R. score; then discharge to a Phase I or Fast Track to Phase II per the following guidelines: * Discharge Patient to appropriate Phase II area if PAR is 8 or greater or return to pre- procedure baseline. The post - procedure orders will be as directed. * If PAR score is less than 8 or not return to pre-procedure baseline then patient will follow Phase I monitoring till PAR is reached for Phase II. The Phase I may be done in procedure room or may call to secure a Phase I area. * If naloxone or flumazenil are used for reversal, hold in Phase I for continued monitoring from when last reversal dose was given for a minimum of 60 minutes or longer pending the nurse and/or physician discretion of patient condition before discharge to Phase II. Please call the Sedation Physician to re-evaluate and complete post-note for discharge to Phase II area. Do NOT discharge from procedure sedation or Phase 1 until post- sedation evaluation note is complete by procedure /sedation MD Sedation Discharge Instructions to be given to the patient at discharge to home. Sedation Data Sedation Times Sedation Start Date: 11/05/18 Sedation Start Time: 15:11 Sedation End Date: 11/05/18 Sedation End Time: 15:26 Total Sedation Time: 15 Procedure Times Procedure Start Time:: 15:11 Procedure End Time: 15:26 Specimens Specimens Obtained: No
[2018-11-05] MEDS ORDERED: SOTALOL HCL 80 MG TAB PO ONE (18:55)
--- NOTE | 2018-11-05 18:58 | Communication Note ---
Date of Service: November 05, 2018 Telemetry reviewed remotely, pt remains in AF , V rates in the range of 90-103 bpm. BP 143/90. Pt on Diltiazem infusion. Will DC oral metoprolol. Start sotalol 80 mg BID, first dose now, next dose in am. Repeat EKG and BMP in am.
[2018-11-05] MEDS: ATORVASTATIN 40 MG TAB PO SCH (19:48)
[2018-11-05] MEDS: RIVAROXABAN 20 MG TAB PO SCH (19:49)
[2018-11-05] MEDS: CALCIUM 600MG + VIT D 400 IU TAB PO SCH (19:49)
[2018-11-05] MEDS ORDERED: ACETAMINOPHEN 325 MG TAB ONE (20:24)
[2018-11-05] MEDS: ACETAMINOPHEN 325 MG TAB PO PRN (20:30)
[2018-11-05] MEDS ORDERED: METOPROLOL TARTRATE 25 MG TAB PO SCH (21:00)
[2018-11-06 07:07] LABS: Calcium 8.9 mg/dl (8.5-10.1); Creatinine Clr Calc Pharmacy 105.7 ml/min; Est GFR (African American) 105.9; Est GFR (Non-African American) 91.4; Potassium 3.9 mmol/L (3.5-5.1)
[2018-11-06] MEDS: dilTIAZem HCl 125 MG in DEXTROSE 5% 100 ML IV SCH ×2 (07:45→11:22)
[2018-11-06] MEDS: ASPIRIN 81 MG ECTAB PO SCH (09:56)
[2018-11-06] MEDS: MULTIVITAMIN TAB PO SCH (09:56)
[2018-11-06] MEDS: MAGNESIUM OXIDE 400 MG TAB PO SCH (09:56)
[2018-11-06] MEDS: CALCIUM 600MG + VIT D 400 IU TAB PO SCH ×2 (09:56→21:37)
[2018-11-06] MEDS: LOSARTAN POTASSIUM 25 MG TAB PO SCH (09:56)
[2018-11-06] MEDS: SOTALOL HCL 80 MG TAB PO SCH ×2 (09:56→21:38)
--- NOTE | 2018-11-06 15:21 | Cardiology Progress Note ---
Date of Service November 06, 2018 Assessment & Plan (1) Paroxysmal a-fib: Recurrent symptomatic atrial fibrillation. She has been on uninterrupted Xarelto Cardioversion x3 attempted, without successful conversion. Admitted for antiarrhythmic therapy. Metoprolol discontinued. Sotalol initiated at 80 mg BID EKG stable this AM remains in rate controlled afib. Continue diltiazem gtt for now. She will receive 3rd dose of sotalol tonight. If she does not convert to NSR, consider cardioversion Thurs AM after 6th dose. (2) Hypertension: BP currently well controlled. Continue therapy. (3) Chronic diastolic HF (heart failure): Patient appears euvolemic. She reports chronic furosemide use at 20 mg - 1 tab on // at home. Will initiate as inpatient to keep I+O's equal Supervising Physician Co-Signing Physician Notes Patient seen and examined with Bren Lr PA-C. Agree with findings and assessment as above. Currently states that she is feeling well. A little disappointed that hospital stay will be prolonged with Sotalol load but in agreement with plan. Lungs CTA B/L on examined. No rales, rhonchi or wheezing Cardiac: irregularly irregular Plan: cont with Sotalol load, remain on tele, daily EKG's to monitor QTc cont Xarelto anticoagulation cont cardizem gtt if remains in afib till 11/08, will perform DC cardioversion pt in agreement with plan Subjective Patient resting in bed comfortably. Denies complaints of dizziness, palpitations, chest pain. Stable dyspnea reported. No orthopnea, PND or edema. Tolerating sotalol and diltiazem gtt. Remains in rate controlled atrial fibrillation on telemetry. Review of Systems Review of Systems: All systems reviewed & are unremarkable except as noted in HPI & below Physical Exam Constitutional: WD/WN, vitals as above + obese; no acute distress Eyes: PERRL, conjunctivae normal, anicteric sclerae Neck: normal visual inspection Respiratory: normal respiratory effort, lungs clear to auscultation Cardiovascular: Rate/Rhythm: + irregularly irregular Heart Sounds: no murmur Vessels: no JVD Extremities: no edema Gastrointestinal (Abdomen): normal bowel sounds, soft, nontender, no hepatosplenomegaly Psychiatric: A+Ox3, euthymic affect Results & Data Vital Signs (Past 12 Hours) Vital Signs Temp Pulse Pulse Resp BP Pulse Ox 11/06/18 15:15 36.5 C 91 H 20 128/82 95 11/06/18 11:04 36.7 C 71 18 130/82 97 11/06/18 07:29 36.7 C 77 19 136/77 96 11/06/18 03:57 36.8 C 68 18 119/77 96
--- NOTE | 2018-11-06 16:37 | Hospitalist Progress Note ---
Date of Service November 06, 2018 Assessment & Plan (1) Atrial fibrillation with RVR: Present on admission with palpitation, tiredness and SOB EKG on admission showed Afib with RVR Received IV Lopressor on admission unsuccessful cardioversion with total of 3 doses of synchronized biphasic energy of 250 J, 300 J, [address] Velasquez Received IV Cardizem 10mg IV and was starting on cardizem drip in the ER Cardiology on board Metoprolol discontinued Sotalol initiated at 80 mg BID EKG reveals Afib Continue Xarelto daily Continue cardizem drip If she does not convert to NSR, consider cardioversion Thurs AM after 6th dose. Echo pending Continue monitor in telemetry HTN BP stable Continue Losartan Monitor BP Chronic diastolic HF CXR showed cardiomegaly with mild volume overload. No significant congestive change or kendell pulmonary edema. ProBNP 1004 Clinically no sign of fluid overload Continue Lasix 20mg MWF Dyslipidemia Continue Dyslipidemia DVT px on Xarelto CODE STATUS FULL CODE Disposition Continue monitor in telemetry Subjective Pt was seen and examined Sitting in chair with no distress Pt said that she feels ok Denies any chest pain, palpitation, dizziness and SOB Physical Exam Physical Exam: General- No acute distress Head- atraumatic Eyes- PERRL, EOMI, ENT- oropharynx clear Neck- supple, no JVD Lungs- clear to auscultation Heart- irregular rhythm Abdomen- normal bowel sounds, soft, nontender Extremities- no calf tenderness Neuro- alert, oriented x 3; PERRL, EOMI; no facial palsy; no dysarthria Skin- warm & dry Results & Data Vital Signs (Past 12 Hours) Vital Signs Temp Pulse Pulse Resp BP Pulse Ox 11/06/18 15:15 36.5 C 91 H 20 128/82 95 11/06/18 11:04 36.7 C 71 18 130/82 97 11/06/18 07:29 36.7 C 77 19 136/77 96
[2018-11-06] MEDS: ATORVASTATIN 40 MG TAB PO SCH (21:37)
[2018-11-06] MEDS: RIVAROXABAN 20 MG TAB PO SCH (21:38)
[2018-11-07] MEDS: LOSARTAN POTASSIUM 25 MG TAB PO SCH (07:24)
[2018-11-07] MEDS: SOTALOL HCL 80 MG TAB PO SCH ×2 (07:24→19:46)
[2018-11-07] MEDS: ASPIRIN 81 MG ECTAB PO SCH (07:24)
[2018-11-07] MEDS: MULTIVITAMIN TAB PO SCH (07:24)
[2018-11-07] MEDS: CALCIUM 600MG + VIT D 400 IU TAB PO SCH ×2 (07:24→19:46)
[2018-11-07] MEDS: MAGNESIUM OXIDE 400 MG TAB PO SCH (07:24)
[2018-11-07] MEDS ORDERED: FUROSEMIDE 20 MG TAB PO SCH (09:00)
[2018-11-07] MEDS: dilTIAZem HCl 125 MG in DEXTROSE 5% 100 ML IV SCH (09:32)
--- NOTE | 2018-11-07 11:21 | Hospitalist Progress Note ---
Date of Service November 07, 2018 Assessment & Plan (1) Paroxysmal atrial fibrillation: Paroxysmal atrial fibrillation (Chronic) Presented with PAF with rapid ventricular response. Cardioversion x 3 unsuccessful. Started on sotalol. QTc 447 msec. Possible DC cardioversion after sotalol load if she remains in AF. Continue anticoagulation with rivaroxaban. Coronary artery disease (chronic) Cath 2016 showed nonocclusive coronary disease with 40% ostial LAD lesion. Continue aspirin and statin. Chronic diastolic HF (heart failure) (Chronic) Compensated. Continue furosemide MWF. Hypertension (Chronic) Continue valsartan and rivaroxaban. Dyslipidemia (Chronic) Continue atorvastatin. DVT prophylaxis Continue anticoagulation with rivaroxaban. Disposition Anticipated discharge to home. Primary Care follow-up with Bettie Begum PA-C. Subjective Recheck for atrial fibrillation. Patient seen in their room around 1010. Son visiting. Persistent AF on telemetry. Feels well. No chest pain, SOB, lightheadedness. Review of Systems: Constitutional- no fever. Cardiac- as noted above. Pulmonary- no cough or SOB. GI- no nausea, vomiting, diarrhea, melena, hematochezia. - no urinary symptoms. Otherwise, as noted above. Physical Exam Physical Exam: Constitutional- afebrile, no acute distress Eyes- sclerae anicteric Respiratory- clear to auscultation, no respiratory distress Cardiovascular- cardiac rhythm irregular, no murmurs or gallops appreciated, no JVD, chronic-appearing lymphedema of bilat lower extremities; no calf tenderness Gastrointestinal- normal bowel sounds, soft, nondistended, nontender Skin-warm and dry, no rash Psychiatric- alert, oriented Results & Data Vital Signs (Past 12 Hours) Vital Signs Temp Pulse Pulse Resp BP Pulse Ox 11/07/18 06:50 36.5 C 85 16 130/80 94 11/07/18 02:00 36.7 C 87 20 130/84 95 11/06/18 23:53 77 Laboratory Results 11/05/18 13:33 11/06/18 06:16 ECG Additional Comments: EKG performed at 0638 reviewed and demonstrated AF at 90 / min, inverted T-waves III, flattened T-waves aVF, QTc 447 msec.
--- NOTE | 2018-11-07 17:05 | Cardiology Progress Note ---
Date of Service November 07, 2018 Assessment & Plan (1) Paroxysmal a-fib: Recurrent symptomatic atrial fibrillation. She has been on uninterrupted Xarelto Cardioversion x3 attempted, without successful conversion. Admitted for antiarrhythmic therapy. Metoprolol discontinued. Sotalol initiated at 80 mg BID EKG stable this AM, QTc of 447 ms today remains in rate controlled afib. Continue diltiazem gtt for now. She will receive 5th dose of sotalol tonight. will perform DC cardioversion in AM should she remain in afib npo after midnight, pt to receive AM meds prior to cardioversion (2) Hypertension: BP currently well controlled. Continue therapy. (3) Chronic diastolic HF (heart failure): Patient appears euvolemic. She reports chronic furosemide use at 20 mg - 1 tab on // at home. Will initiate as inpatient to keep I+O's equal Subjective Pt seen and examined with son at bedside. Remains without complaint and denies cp, sob, palpitations, lightheadedness or dizziness tele reviewed: afib rates controlled EKG: afib with QTc stable at 447 ms. Review of Systems Review of Systems: All systems reviewed & are unremarkable except as noted in HPI & below Physical Exam Physical Exam: General: Awake, alert and oriented x 3. No acute distress. HEENT: Normocephalic, atraumatic. Pupils equal, round and reactive to light and accommodation. Extraocular muscles are intact. Anicteric sclera. Moist mucous membranes. Neck: No JVD. No bruit. Cardiovascular: irregularly irregular, unable to appreciate murmur, rub or gallop. Pulmonary: Clear to auscultation bilaterally. No rales, rhonchi, or wheezing. Abdomen: Bowel sounds x 4, soft. No rebound, guarding or tenderness. No organomegaly. Extremities: No clubbing, cyanosis or edema. +2 pedal pulses bilaterally. Skin: Warm and dry. Results & Data Vital Signs (Past 12 Hours) Vital Signs Temp Pulse Pulse Resp BP Pulse Ox 11/07/18 16:00 84 11/07/18 15:11 36.6 C 88 19 118/76 95 11/07/18 11:22 36.5 C 80 16 113/70 94 11/07/18 06:50 36.5 C 85 16 130/80 94
[2018-11-07] MEDS: ATORVASTATIN 40 MG TAB PO SCH (19:46)
[2018-11-07] MEDS: RIVAROXABAN 20 MG TAB PO SCH (19:46)
[2018-11-08 07:42] LABS: Estimated Average Glucose 197 mg/dl; Hemoglobin A1C 8.5 % (4.5-5.6)
[2018-11-08] MEDS: MULTIVITAMIN TAB PO SCH (08:38)
[2018-11-08] MEDS: CALCIUM 600MG + VIT D 400 IU TAB PO SCH (08:38)
[2018-11-08] MEDS: LOSARTAN POTASSIUM 25 MG TAB PO SCH (08:38)
[2018-11-08] MEDS: SOTALOL HCL 80 MG TAB PO SCH (08:38)
[2018-11-08] MEDS: ASPIRIN 81 MG ECTAB PO SCH (08:39)
[2018-11-08] MEDS: MAGNESIUM OXIDE 400 MG TAB PO SCH (08:39)
[2018-11-08] MEDS ORDERED: fentaNYL citrate 100 MCG/2 ML VIAL ONE (09:08)
[2018-11-08] MEDS ORDERED: MIDAZOLAM HCL 1 MG/ML 2ML VIAL ONE (09:08)
--- NOTE | 2018-11-08 09:49 | History & Physical Bridge Note ---
Date of Service November 08, 2018 History & Physical Bridge Note I have examined the patient, reviewed the History & Physical and in the interval since the performance of the History & Physical I have noted the following changes of clinical significance: no changes noted
--- NOTE | 2018-11-08 09:49 | Pre Anesthesia Assessment ---
Date of Service November 08, 2018 Pre Sedation Assessment Vital Signs Temp Pulse Pulse Resp BP Pulse Ox 11/08/18 08:00 36.6 C 95 H 12 143/82 H 98 11/08/18 07:01 36.7 C 106 H 18 152/107 H 92 11/08/18 04:00 36.6 C 85 14 133/83 96 11/07/18 23:24 36.8 C 91 H 18 141/81 H 94 11/07/18 19:16 37.2 C 92 H 18 125/82 95 11/07/18 16:00 84 11/07/18 15:11 36.6 C 88 19 118/76 95 11/07/18 11:22 36.5 C 80 16 113/70 94 Pre-Sedation Airway Assessment Smoking Status: Never smoker Short, Thick Neck: No Thyromental Distance: > or= 3.5 Finger Breadths Oral Cavity: + WNL Mallampati Class: II ASA: ASA3 NPO Status Date of Last Intake of Fluids: 11/07/18 Time of Last Intake of Fluids: 23:30 Date of Last Intake of Solid Food: 11/07/18 Time of Last Intake of Solid Foods: 23:30 Notes The planned sedation has been discussed with the patient. Informed Consent was obtained. I have identified the patient, determined the appropriateness of sedation and have assessed the patient immediately prior to the procedure. All medicine(s) and interventions are by my order.
--- NOTE | 2018-11-08 10:05 | Post Anesthesia Assessment ---
Date of Service November 08, 2018 Post Sedation Assessment Vital Signs Temp Pulse Pulse Resp BP Pulse Ox 11/08/18 10:03 64 16 138/91 11/08/18 09:55 100 H 16 154/114 H 11/08/18 09:50 114 H 16 153/99 H 11/08/18 08:00 36.6 C 95 H 12 143/82 H 98 11/08/18 07:01 36.7 C 106 H 18 152/107 H 92 11/08/18 04:00 36.6 C 85 14 133/83 96 11/07/18 23:24 36.8 C 91 H 18 141/81 H 94 11/07/18 19:16 37.2 C 92 H 18 125/82 95 11/07/18 16:00 84 11/07/18 15:11 36.6 C 88 19 118/76 95 11/07/18 11:22 36.5 C 80 16 113/70 94 Recovery Score Activity: Moves 4 extremities Respiration: Deep Breath/Cough Circulation: +/-20% PreAnes Value Consciousness: Arouseable (by name) Oxygen Saturation: O2 needed for >90% Post Anesthesia Score: 8 Post Sedation Plan On clinical assessment, the patient appears to have tolerated the sedation without complications. Patient is recovering as anticipated. Patient will continue to be monitored by nursing and may be discharged when sedation discharge criteria are met per below protocol. Upon Completions of procedure and additional 15 minutes continue every 5 minute vital signs and the P.A.R. score; then discharge to a Phase I or Fast Track to Phase II per the following guidelines: * Discharge Patient to appropriate Phase II area if PAR is 8 or greater or return to pre- procedure baseline. The post - procedure orders will be as di rected. * If PAR score is less than 8 or not return to pre-procedure baseline then patient will follow Phase I monitoring till PAR is reached for Phase II. The Phase I may be done in procedure room or may call to secure a Phase I area. * If naloxone or flumazenil are used for reversal, hold in Phase I for continued monitoring from when last reversal dose was given for a minimum of 60 minutes or longer pending the nurse and/or physician discretion of patient condition before discharge to Phase II. Please call the Sedation Physician to re-evaluate and complete post-note for discharge to Phase II area. Do NOT discharge from procedure sedation or Phase 1 until post- sedation evaluation note is complete by procedure /sedation MD Sedation Discharge Instructions to be given to the patient at discharge to home.
--- NOTE | 2018-11-08 10:07 | Operative Report ---
Post Operative Report Pre & Post Diagnosis Operation Date: 11/08/18 09:00 <No data on this case meets the specified criteria> Procedure Operation Date: 11/08/18 09:00 <No data on this case meets the specified criteria> Surgeon Thee Mendez DO Religion Department Chair none Estimated Blood Loss 0 Findings Consistent with Post-Op Diagnosis Specimens none Description of Procedure informed consent obtained pt prepped adequate moderate sedation achieved with a total of Versed 4mg and Fentanyl 125mcg 360J of synchronized energy delivered with successful cardioversion to sinus rhythm pt tolerate well no complications to be recovered per protocol and return to PCU start time: 50 stop time: 1003 I attest to the content of the Intraoperative Record and any orders documented therein. Any exceptions are noted below.
[2018-11-08] MEDS: ACETAMINOPHEN 325 MG TAB PO PRN (10:45)
--- NOTE | 2018-11-08 11:29 | Cardiology Progress Note ---
Date of Service November 08, 2018 Assessment & Plan (1) Paroxysmal a-fib: s/p successful sotalol 'load' has received 6 doses of 80mg, no arrhythmias, QTc relatively unchanged at 447ms s/p successful cardioversion to sinus rhythm Xarelto uninterrupted and to be cont'd on discharge d/c home on sotalol 80mg bid cardizem cd 120mg daily my office will call to arrange f/u with us as well as EP ok to d/c to home from cardiac standpoint (2) Hypertension: BP currently well controlled. Continue therapy. (3) Chronic diastolic HF (heart failure): Patient appears euvolemic. She reports chronic furosemide use at 20 mg - 1 tab on // at home. cont Subjective Pt seen and examined, remains without complaint overnight. Successful cardioversion to sinus, feels well. tele reviewed: afib without ventricular arrhythmias or significant ectopy overnight EKG: afib QTc unchange at 447ms Review of Systems Review of Systems: All systems reviewed & are unremarkable except as noted in HPI & below Physical Exam Physical Exam: General: Awake, alert and oriented x 3. No acute distress. HEENT: Normocephalic, atraumatic. Pupils equal, round and reactive to light and accommodation. Extraocular muscles are intact. Anicteric sclera. Moist mucous membranes. Neck: No JVD. No bruit. Cardiovascular: Regular. Positive S-4. Normal S-1 and S-2. No S-3. No murmurs or rubs. Pulmonary: Clear to auscultation B/L. No rales, rhonchi or wheezing Abdomen: Bowel sounds x 4, soft. No rebound, guarding or tenderness. No organomegaly. Extremities: No clubbing, cyanosis or edema. +2 pedal pulses bilaterally. Skin: Warm and dry. Results & Data Vital Signs (Past 12 Hours) Vital Signs Temp Pulse Pulse Resp BP Pulse Ox 11/08/18 10:14 64 16 117/71 94 11/08/18 10:03 64 16 138/91 11/08/18 09:55 100 H 16 154/114 H 11/08/18 09:50 114 H 16 153/99 H 11/08/18 08:00 36.6 C 95 H 12 143/82 H 98 11/08/18 07:01 36.7 C 106 H 18 152/107 H 92 11/08/18 04:00 36.6 C 85 14 133/83 96 11/07/18 23:24 36.8 C 91 H 18 141/81 H 94
[2018-11-08 12:21] VITALS: BP 120/73; TEMP 97.3; O2SAT 97
[2018-11-08] MEDS ORDERED: dilTIAZem HCL 120 MG CAPCR PO ONE (13:00)
--- NOTE | 2018-11-08 15:41 | Hospitalist Progress Note ---
Date of Service November 08, 2018 Assessment & Plan (1) Paroxysmal atrial fibrillation: Paroxysmal atrial fibrillation / flutter (Chronic) Presented with recurrent PAF with rapid ventricular response. Cardioversion x 3 unsuccessful. Loaded with sotalol. QTc 447 msec. Successful DC cardioversion after sotalol load. Discharged on sotalol 80 mg twice daily, diltiazem extended release 120 mg daily, rivaroxaban. Coronary artery disease (chronic) Cath 2016 showed nonocclusive coronary disease with 40% ostial LAD lesion. Continue aspirin and statin. Chronic diastolic HF (heart failure) (Chronic) Compensated. Continue furosemide MWF. Hypertension (Chronic) Metoprolol discontinued with transition to sotalol. Diltiazem added for atrial fibrillation and hypertension. Continue valsartan. Dyslipidemia (Chronic) Continue atorvastatin. Diabetes mellitus type 2 History of elevated blood sugars in past with slightly elevated hemoglobin A1c. Fasting blood sugar as high as 150. Hemoglobin A1c 8.5. Now meets criteria for diagnosis. Received diabetic education and glucometer. Start metformin 500 mg daily for 1 week, then 500 mg twice daily with meals. Ongoing education/support/monitoring as outpatient. DVT prophylaxis Continue anticoagulation with rivaroxaban. Disposition Discharge to home. Primary Care follow-up with Bettie Begum PA-C. Cardiology follow-up with Venkat Dominique PA-C and Dr. Velasquez; also referred to Dr. Oseguera for Electrophysiology. Subjective Recheck for multiple problems. Patient seen in their room around 1350. Family visiting. Successful DC cardioversion this morning. Remains in NSR. Feels well. No chest pain, SOB, lightheadedness. Disappointed that Hgb A1C elevated. Review of Systems: Constitutional- no fever. Cardiac- as noted above. Pulmonary- no cough or SOB. GI- no nausea, vomiting, diarrhea, melena, hematochezia. - no urinary symptoms. Otherwise, as noted above. Physical Exam Physical Exam: Constitutional- afebrile, no acute distress Eyes- sclerae anicteric Respiratory- clear to auscultation, no respiratory distress Cardiovascular- cardiac rhythm regular, no murmurs or gallops appreciated, no JVD, chronic-appearing lymphedema of bilat lower extremities; no calf tenderness Gastrointestinal- normal bowel sounds, soft, nondistended, nontender Skin-warm and dry, no rash Psychiatric- alert, oriented Results & Data Vital Signs (Past 12 Hours) Vital Signs Temp Pulse Pulse Resp BP Pulse Ox 11/08/18 12:19 36.3 C L 58 L 18 120/73 97 11/08/18 11:46 36.4 C L 58 L 18 109/70 95 11/08/18 11:00 36.4 C L 59 L 12 131/79 95 11/08/18 10:14 64 16 117/71 94 11/08/18 10:03 64 16 138/91 11/08/18 09:55 100 H 16 154/114 H 11/08/18 09:50 114 H 16 153/99 H 11/08/18 08:00 36.6 C 95 H 12 143/82 H 98 11/08/18 07:01 36.7 C 106 H 18 152/107 H 92 11/08/18 04:00 36.6 C 85 14 133/83 96
[2018-11-08 16:41] VITALS: PULSE 71
--- NOTE | 2018-11-09 06:49 | Discharge Summary ---
Date of Service Date of Admission: 11/05/18 Date of Discharge: 11/08/18 Admission HPI Per Admitting Provider 63 yo Female with PMH of Paroxysmal afib, HTN, obesity, COPD, dyslipedemia, CAD present to the ER for palpitation and SOB. Pt said that symptoms started about 2 days ago where she felt tired and sob. She said that she checked her pulse from the carotid area where she was able to feel it and was irregular. She said that yesterday she felt very tired while at [employer]. She said that SOB has been worsening on exertion. She said that when she woke up this morning her symptoms persisted. She was in Afib back in August and was successfully cardioverted. She said that she has been taking her med and took her Xarelto every night without missing any dose. Currently denies any chest pain, fever, SOB dysuria. In the ER she was cardioverted with total of 3 doses of synchronized biphasic energy of 250 J, 300 J, [address] Velasquez that was unsuccessful. Principal Diagnosis paroxysmal atrial fibrillation, recurrent, with RVR OTHER NEW / ACUTE DIAGNOSES diabetes mellitus type 2 Discharge Data Allergies Allergy/AdvReac Type Severity Reaction Status Date / Time codeine Allergy Unknown Unknown, Verified 11/05/18 12:27 reaction as child Consultations 11/05/18 15:32 ED Decision to Admit Stat 11/05/18 17:37 Consult Cardiology Routine Procedures Performed Operation Date: 11/08/18 09:00 Actual Procedures p Cardioversion - Thee Mendez DO Hospital Course (1) Paroxysmal atrial fibrillation: Paroxysmal atrial fibrillation / flutter (Chronic) Presented with recurrent PAF with rapid ventricular response. Cardioversion x 3 unsuccessful. Loaded with sotalol. QTc 447 msec. Successful DC cardioversion after sotalol load. Discharged on sotalol 80 mg twice daily, diltiazem extended release 120 mg daily, rivaroxaban. Coronary artery disease (chronic) Cath 2016 showed nonocclusive coronary disease with 40% ostial LAD lesion. Continue aspirin and statin. Chronic diastolic HF (heart failure) (Chronic) Compensated. Continue furosemide MWF. Hypertension (Chronic) Metoprolol discontinued with transition to sotalol. Diltiazem added for atrial fibrillation and hypertension. Continue valsartan. Dyslipidemia (Chronic) Continue atorvastatin. Diabetes mellitus type 2 History of elevated blood sugars in past with slightly elevated hemoglobin A1c. Fasting blood sugar as high as 150. Hemoglobin A1c 8.5. Now meets criteria for diagnosis. Received diabetic education and glucometer. Start metformin 500 mg daily for 1 week, then 500 mg twice daily with meals. Ongoing education/support/monitoring as outpatient. DVT prophylaxis Continue anticoagulation with rivaroxaban. Disposition Discharged to home. Primary Care follow-up with Bettie Begum PA-C. Cardiology follow-up with Venkat Dominique PA-C and Dr. Velasquez; also referred to Dr. Oseguera for Electrophysiology. Total Time Total Time Spent Total Time Spent (In Minutes): 50 Discharge Plan Discharge Items Patient Disposition: Home - Self-Care Reason For Visit: atrial fibrillation / atrial flutter Discharge Diagnosis: atrial fibrillation / atrial flutter diabetes mellitus (type 2) Condition: Good Discharge Goals: Improve disease control Activity: As commented below Activity Comment: gradually increase activity as tolerated Non-emergency contact: Primary Care Provider, Hospitalist and Software Configuration Analyst Call non-emergency contact if: you have any medication questions and your symptoms worsen Follow-up/Referrals: Venkat Dominique [Physician Cable Worker Helper] - (12/03/2018 3:00 PM [facility] Bettie Begum PA-C [Primary Care Provider] - (11/12/2018 11:00 AM Jamie Hopson III, MD (covering for June) [facility]) Diet: Carb Consistent or DM2 and Heart Healthy Addtl Provider Instructions: MEDICATION CHANGES: STOP metoprolol (Lopressor) NEW MEDICATIONS sotalol (Betapace) 80 mg twice a day helps control heart rhythm diltiazem ER (various brands) 120 mg daily helps control heart rhythm and blood pressure metformin (Glucophage) 500 mg for diabetes take 1 pill daily with breakfast for first week, then 1 pill twice a day with breakfast and supper SUMMARY OF TEST RESULTS: Electrocardiogram showed atrial fibrillation / atrial flutter. Echocardiogram showed that heart muscle is strong; no blood clots were seen in the heart chambers. Fasting blood sugars were as high as 150. Hemoglobin A1C was 8.5. PENDING TEST RESULTS: none RECOMMENDATIONS FOR FOLLOW-UP: ADDITIONAL CARDIOLOGY FOLLOW-UP 12/05/2018 2:00 PM Hortencia Oseguera IV, MD (professor of floriculture) Cardiology, [facility] OTHER INSTRUCTIONS: Please discuss ongoing education and support for diabetes with Dr. Hopson or Bettie Begum. Weigh yourself daily, first thing in the morning. Contact your PCP or Cardiology Clinic if weight goes up more than 3 lbs in a short period of time. Seek medical attention if you have: * temperature above 101 * chest pain, palpitations, lightheadedness, trouble breathing * abdominal pain, nausea, vomiting * diarrhea, dark stools or bloody stools * any unanswered questions or concerns Call 141 if symptoms are severe. Please take good care of yourself. Call if you have any questions or problems. You can reach a [facility] hospitalist on duty at [facility] 24 hours a day by calling [phone]. My cell # is [phone]. Prescriptions: New sotalol 80 mg Tablet 80 mg PO BID Qty: 60 RF: 5 diltiazem HCl 120 mg capsule,ext.rel 24h degradable 120 mg PO DAILY Qty: 30 RF: 5 metformin 500 mg tablet 500 mg PO BID Qty: 60 RF: 5 Accu-Chek Guide strip .ROUTE .MEDSUPPLY Qty: 50 RF: 5 lancets 25 gauge misc .ROUTE .MEDSUPPLY Qty: 100 RF: 5 lancets [Accu-Chek Fastclix Lancet Drum] misc .ROUTE .MEDSUPPLY Qty: 50 RF: 5 lancets [Accu-Chek Fastclix Lancet Drum] misc .ROUTE .MEDSUPPLY Qty: 50 RF: 5 lancing device with lancets [Accu-Chek FastClix Lancing Dev] kit .ROUTE .MEDSUPPLY Qty: 50 RF: 5 lancets [Accu-Chek Fastclix Lancet Drum] misc .ROUTE .MEDSUPPLY Qty: 100 RF: 5 lancets [Accu-Chek Fastclix Lancet Drum] misc .ROUTE .MEDSUPPLY Qty: 50 RF: 0 Continued multivitamin Tablet 1 tab PO QAM RF: 0 atorvastatin 40 mg tablet 40 mg PO HS RF: 0 aspirin 81 mg Tablet,Delayed Release (Dr/Ec) 81 mg PO QAM RF: 0 calcium carbonate-vitamin D3 [Calcium 500 + D] 500 mg(1,250mg) -200 unit Tablet 1 tab PO BID RF: 0 Xarelto 20 mg tablet 20 mg PO PM RF: 0 magnesium oxide 400 mg magnesium Tablet 400 mg PO QAM RF: 0 losartan 25 mg Tablet 25 mg PO DAILY RF: 0 furosemide [Lasix] 20 mg Tablet 20 mg PO 3XWK RF: 0 Discontinued metoprolol tartrate 25 mg tablet 25 mg PO BID RF: 0 Stand-Alone Forms: [facility]charge Orders: Discharge Order (Routine); Ordered 11/08/18 Ordered By: Jamie Clement Admission Data Admit Date/Time: 11/05/18 16:52 Attending Provider: Jamie Clement Admit Provider: Bekah Perdomo Primary Care Provider: Bettie Begum Other Providers: Bekah Perdomo ; Neno Velasquez Service: Telemetry Other Interventions: Discharge Summary Assessment (RN) Last Done: 11/08/18 16:38 DC Date/Time DO NOT enter until pt leaves facility: 11/08/18 17:01
== END 2018-11-08 17:01 | disposition home or self-care (01) | DRG 309 ==
LOC: ED 11:52 → SUATTDRO 16:52 → 2S 16:52

== ENCOUNTER 2019-12-24 13:08 | Inpatient (IN) ==
--- NOTE | 2019-12-24 14:20 | Emergency Department Note ---
History of Present Illness General Chief complaint: Arrhythmia/Palpitations Stated complaint: AFIB Time Seen by Provider: 12/24/19 13:51 Source: patient, family, RN notes reviewed, old records reviewed and other (cylinder honer) Mode of arrival: ambulatory Limitations: no limitations History of Present Illness Provider complaint: a fib Onset (ago): week(s) 1 Associated symptoms: + denies other symptoms; no diaphoresis, no fever/chills, no nausea/vomiting and no shortness of breath Treatments prior to arrival: other (cardioversionx3) This is a 64-year-old female who presents the emergency department 1 week after a unsuccessful cardioversion to get the patient out of atrial fibrillation. The patient had been on sotalol which was stopped last week. The patient was transitioned to metoprolol. She is going to start a new medication that requires admission. The patient has herself has no complaints she has no chest pain no shortness of breath. Home Medications Home Medications Medication Instructions Recorded Confirmed Type Xarelto 20 mg PO DAILY 08/27/18 12/24/19 History atorvastatin 40 mg PO DAILY 08/27/18 12/24/19 History calcium carbonate-vitamin D3 1 tab PO BID 08/27/18 12/24/19 History [Calcium 500 + D] magnesium oxide 400 mg PO 3XWK 08/27/18 12/24/19 History multivitamin 1 tab PO QAM 08/27/18 12/24/19 History furosemide [Lasix] 20 mg PO DAILY PRN 11/05/18 12/24/19 History losartan 25 mg PO DAILY 11/05/18 12/24/19 History Accu-Chek Guide test strips #50 ea 11/08/18 12/24/19 Rx diltiazem HCl 120 mg PO DAILY #30 cap 11/08/18 12/24/19 Rx lancets #100 ea 11/08/18 12/24/19 Rx lancets [Accu-Chek Fastclix Lancet #100 ea 11/08/18 12/24/19 Rx Drum] lancets [Accu-Chek Fastclix Lancet #50 ea 11/08/18 12/24/19 Rx Drum] lancets [Accu-Chek Fastclix Lancet #50 ea 11/08/18 12/24/19 Rx Drum] lancets [Accu-Chek Fastclix Lancet #50 ea 11/08/18 12/24/19 Rx Drum] lancing device with lancets #50 ea 11/08/18 12/24/19 Rx [Accu-Chek FastClix Lancing Dev] metformin 500 mg PO BID #60 tab 11/08/18 12/24/19 Rx metoprolol tartrate 50 mg PO BID #60 tab 12/19/19 12/24/19 Rx turmeric root extract 500 mg PO DAILY 12/24/19 12/24/19 History Allergies Allergy/AdvReac Type Severity Reaction Status Date / Time codeine Allergy Unknown Unknown, Verified 12/24/19 15:35 reaction as child Past Med/Surg History Medical History Chronic diastolic HF (heart failure) Coronary artery disease 40% ostial LAD lesion per cath 2016 Diabetes mellitus type 2, uncontrolled Dyslipidemia Hypertension Paroxysmal atrial fibrillation SVT (supraventricular tachycardia) Surgical History History of cardiac radiofrequency ablation Family History Mother Diabetes Heart disease Social History Smoking Status: Never smoker Second Hand Exposure: No; Do You Dip or Chew Tobacco: No; Hx Alcohol Use: Yes Hx Substance Use: No Preferred Language: Swedish Communication Ability: Effective Visual Impairment: No Limitations Hearing Ability: Normal [place] Required: No Beliefs That Will Affect Care: None Current Living Situation: Spouse Other Information That Helps Us Care for You: No Feels Safe at Home: Yes Safety Concerns: Feels Safe At This Time Assistive Devices: Glasses Review of Systems A total of 10 systems reviewed and were otherwise negative Physical Exam Vital Signs Vital Signs - 24 hr 12/24/19 13:12 12/24/19 14:04 Temperature 36.5 C Temperature Source Oral Pulse Rate 85 Respiratory Rate 18 Blood Pressure 159/89 H Blood Pressure Mean 112 Pulse Oximetry 94 99 Oxygen Delivery Method Room Air Sepsis Recent Fever Within 48 Hours No Sepsis New/Unexplained Change in Mental Status No Sepsis Action Taken by Nursing No Action Required VITAL SIGNS - Vital signs and nursing notes were reviewed. GENERAL - 64-year-old female appearing stated age who is in no acute distress. Communicates well with provider and answers questions appropriately. SKIN - Without rashes. HEAD - NC/AT. EYES - PERRL with EOMI bilaterally. Sclera anicteric. Palpebral conjunctiva pink and moist with no injection noted. EARS - No deformities of external structures noted on gross examination bilaterally. No pain elicited with palpation of the tragus bilaterally. External auditory canals without discharge or otorrhea. Tympanic membranes pearly hess without retraction or bulging. No fluid or purulent material visualized behind the TM. Handle of malleus, umbo, cone of light, pars tensa/flaccid all easily visualized. NOSE - Midline and without cyanosis. No epistaxis or purulent drainage noted. Septum midline without deviation or septal hematoma noted. MOUTH/OROPHARYNX - Without perioral cyanosis. Buccal mucosa pink and moist and without leukoplakia. Tongue midline with equal elevation of palate bilaterally. No tonsillar hypertrophy, erythema, or exudates noted. dentition noted. NECK - Neck with FROM. Supple to palpation. lymphadenopathy noted. No nuchal rigidity. LUNGS - Chest wall symmetric without accessory muscle use, intercostals retractions, or central cyanosis. Normal vesicular breath sounds CTA B/L. No wheezes, rales, or rhonchi appreciated. CARDIAC - RRR with S1/S2. No murmur, rubs, or gallops appreciated. ABDOMEN - Abdominal contour without pulsations or visible masses. BS normoactive all four quadrants. No tenderness, palpable masses, hepatosplenomegaly, or ascites noted. EXTREMITIES - No clubbing or peripheral cyanosis. No pretibial edema present. + 3/5 radial, posterior tibial, and dorsalis pedis pulses palpated throughout. +5/5 strength noted in UE/LE bilaterally. NEUROLOGIC - Cranial nerves II through XII grossly intact. Sensory intact to light touch throughout. Patellar reflexes +2/4. PSYCH - A&Ox3 and cooperates fully with examiner. Pt is very pleasant and interacts well with examiner. Course Administered Medications Atorvastatin Calcium (Atorvastatin 40 Mg Tab) 40 mg PO DAILY [facility] Stop: 01/24/20 08:59 Last Admin: 12/25/19 08:09 Dose: 40 mg Documented by: [id number] Diltiazem HCl (Diltiazem Hcl 120 Mg [facility]) 120 mg PO DAILY [facility] Stop: 01/24/20 08:59 Last Admin: 12/25/19 08:10 Dose: 120 mg Documented by: [id number] Dofetilide (Dofetilide 125 Mcg Capsule) 250 mcg PO BID@0800,1800 [facility] Stop: 01/24/20 07:59 Last Admin: 12/25/19 17:48 Dose: 250 mcg Documented by: [id number] Admin: 12/25/19 08:07 Dose: 250 mcg Documented by: [id number] Insulin Aspart (Insulin Aspart 100 Units/Ml 3 Ml Pen) 0 units SC ACHS [facility] Stop: 01/23/20 17:31 Last Admin: 12/25/19 20:45 Dose: Not Given Documented by: [id number] Cosigned by: [id number] Admin: 12/25/19 17:05 Dose: 1 units Documented by: [id number] Cosigned by: [id number] Admin: 12/25/19 11:55 Dose: 2 units Documented by: [id number] Cosigned by: [id number] Admin: 12/25/19 08:08 Dose: 2 units Documented by: [id number] Cosigned by: [id number] Admin: 12/24/19 21:23 Dose: 2 units Documented by: [id number] Cosigned by: [id number] Admin: 12/24/19 18:30 Dose: 2 units Documented by: [id number] Cosigned by: [id number] Losartan Potassium (Losartan Potassium 25 Mg Tab) 25 mg PO HS [facility] Stop: 01/24/20 20:59 Last Admin: 12/25/19 20:45 Dose: 25 mg Documented by: [id number] Metoprolol Tartrate (Metoprolol Tartrate 50 Mg Tab) 50 mg PO BID [facility] Stop: 01/23/20 20:59 Last Admin: 12/25/19 20:45 Dose: 50 mg Documented by: [id number] Admin: 12/25/19 08:10 Dose: 50 mg Documented by: [id number] Admin: 12/24/19 21:22 Dose: 50 mg Documented by: [id number] Rivaroxaban (Rivaroxaban 20 Mg Tab) 20 mg PO QDB [facility] Stop: 01/24/20 07:29 Last Admin: 12/25/19 08:10 Dose: 20 mg Documented by: [id number] Discontinued Medications Dofetilide (Dofetilide 125 Mcg Capsule) 500 mcg PO NOW [facility] Stop: 12/24/19 15:20 Last Admin: 12/24/19 15:49 Dose: 500 mcg Documented by: [id number] Losartan Potassium (Losartan Potassium 25 Mg Tab) 25 mg PO DAILY [facility] Stop: 01/24/20 08:59 Last Admin: 12/24/19 21:27 Dose: 25 mg Documented by: [id number] Medical Decision Making Differential Diagnosis Cardiac ischemia, aortic dissection, pulmonary embolism, pneumothorax, pneumonia, pericarditis, myocarditis, esophageal rupture, GERD, cholecystitis, pancreatitis, musculoskeletal, as well as other pathologies. Medical Records Attestation: I reviewed the patient's medical records. Home Medications Current Medication List: was personally reviewed by me Laboratory Data Attestation: I reviewed the patient's lab results. Result diagrams: 12/26/19 05:58 12/25/19 06:57 Lab Results 12/24/19 12/24/19 12/24/19 Range/Units 14:00 14:00 14:00 WBC 9.16 (4.8-10.8) K/uL RBC 4.75 (4.2-5.4) M/uL Hgb 13.0 (12.0-16.0) g/dL Hct 40.2 (37-47) % MCV 84.6 (80-100) fL MCH 27.4 (25-34) pg MCHC 32.3 (32-36) g/dL RDW Std Deviation 45.5 (36.4-46.3) fL RDW Coeff of Da 14.7 H (11.5-14.5) % Plt Count 371 (130-400) K/uL MPV 12.1 H (7.4-10.4) fL Immature Gran % (Auto) 0.2 % Neut % (Auto) 67.9 % Lymph % (Auto) 22.9 % [place] % (Auto) 5.8 % Eos % (Auto) 3.1 % Baso % (Auto) 0.1 % Neut # (Auto) 6.22 (1.4-6.5) K/uL Lymph # (Auto) 2.10 (1.2-3.4) K/uL [place] # (Auto) 0.53 (0.11-0.59) K/uL Eos # (Auto) 0.28 (0-0.5) K/uL Baso # (Auto) 0.01 (0-0.2) K/uL Immature Gran # (Auto) 0.02 (0.00-0.02) K/uL PT 12.8 H (9.0-12.0) Seconds INR 1.2 H (0.9-1.1) APTT 35.3 H (21.0-31.0) Seconds PTT Ratio 1.3 Sodium 143 (136-145) mmol/L Potassium 4.3 (3.5-5.1) mmol/L Chloride 109 H (98-107) mmol/L Carbon Dioxide 29 (21-32) mmol/L Anion Gap 5.0 (3-11) BUN 15 (7-18) mg/dl Creatinine 0.81 (0.6-1.2) mg/dl Est Cr Clr Drug Dosing 87.3 ml/min Est GFR ( Amer) 87.7 Est GFR (Non-Af Amer) 75.7 BUN/Creatinine Ratio 18.5 (10-20) Glucose 164 H (70-99) mg/dl Calcium 9.4 (8.5-10.1) mg/dl Total Bilirubin 0.4 (0.2-1) mg/dl AST 16 (15-37) U/L ALT 21 (12-78) U/L Alkaline Phosphatase 89 (45-117) U/L Total Creatine Kinase 63 (26-192) U/L CK-MB (CK-2) 1.1 (0.5-3.6) ng/ml CK/CKMB % Calc 1.7 (0-3.0) Troponin I < 0.015 (0-0.045) ng/ml Total Protein 7.5 (6.4-8.2) gm/dl Albumin 3.6 (3.4-5.0) gm/dl Globulin 3.9 (2.5-4.0) gm/dl Albumin/Globulin Ratio 0.9 (0.9-2) Lipase 129 (73-393) U/L Imaging Data Radiologist's Impression: [facility], [place] [phone] XRay Report Patient: Martin SHANNON Date: 12/24/19 MR#: [id number]: [address] HUANG Acct ID:[id number]: [facility] Zip[facility] [place] [address] Age: 64Location: ED Sex: FRoom/Bed: Att Phy:Diagnosis: AFIB Maria T Phy: Bettie Begum [place]-CService Date: 12/24/19 [facility] Phy:Interpreting Phy: Emmanuel Mathew MD Admit Phy: Ordering Phy: Manjeet Herrera MD cc: ~ XR chest 1V portable CLINICAL HISTORY: Atypical chest pain COMPARISON STUDY: 11/05/2018 FINDINGS: The heart is mildly enlarged. There is no failure. There is no focal pulmonary consolidation. There are no pleural effusions.[ IMPRESSION: Mild cardiomegaly. No active disease in the chest. ACT 112: Negative or not required by law. Electronically signed by: Emmanuel Mathew M.D. 12/24/2019 3:09 PM Dictated: 12/24/19 150 Transcribed: 12/24/191508 ECG Data Attestation: I personally reviewed and interpreted this ECG as follows: Indication: + palpitations Rate (beats per minute): 76 Rhythm: + atrial fibrillation ECG Intervals/blocks: + Normal QT-c (429) ECG [place]: + Normal ECG ST segments: no ST depression and no ST elevation Comparison ECG Date: from (05/08/2019) Change: the following changes noted (afib has replaced nsr ) MDM Narrative Patient was seen and evaluated as above in room C6. Review was performed of nursing notes and vital signs. I did review pertinent previous visits and patient history. After obtaining a thorough history and physical examination the above work up was performed. This is a 64-year-old female who presents emergency department to start her new medication for A. fib. I did discuss the case with the cylinder honer as well as the hospitalist service. Patient does not have an elevation in her white blood cell count has a negative troponin. Patient is in agreement with treatment plan. While in the department, I personally reevaluated the patient several times and each time the patient was found to be resting comfortably. The patient was educated upon management, educated upon todays findings/results, educated upon importance of follow up from today's visit, educated upon symptoms in which to return, had questions answered prior to discharge, verbalized understanding, and was discharged home in good condition. An order was placed for continuous cardiac monitoring. The monitor shows a rate of 67 with afib rhythm. The patient was evaluated during the global COVID-19 pandemic, and that diagnosis was suspected/considered upon their initial presentation. Their evaluation, treatment and testing was consistent with current guidelines for patients who present with complaints or symptoms that may be related to COVID- 19. Impression & Plan Atrial fibrillation Discharge Plan Visit Data Chief Complaint: Arrhythmia/Palpitations Stated Complaint: AFIB ED Provider: Manjeet Herrera Discharge Problem: Atrial fibrillation Patient Disposition: Admitted As Inpatient Discharge Instructions Interventions: ED Discharge Assessment Last Done: 12/24/19 16:56 Discharge Problem: Atrial fibrillation Qualifiers: Atrial fibrillation type: unspecified Qualified Code(s): I48.91 - Unspecified atrial fibrillation
[2019-12-24 14:25] LABS: INR 1.2 (0.9-1.1); Partial Thromboplastin Ratio 1.3; Partial Thromboplastin Time 35.3 Seconds (21.0-31.0); Prothrombin Time 12.8 Seconds (9.0-12.0)
[2019-12-24 14:30] LABS: Basophils # (auto) 0.01 K/uL (0-0.2); Basophils % (auto) 0.1 %; Eosinophils # (auto) 0.28 K/uL (0-0.5); Eosinophils % (auto) 3.1 %; Hematocrit (blood only) 40.2 % (37-47); Immature Granulocytes # (auto) 0.02 K/uL (0.00-0.02); Immature Granulocytes % (auto) 0.2 %; Lymphocytes % (auto) 22.9 %; Mean Corpuscular Hemoglobin 27.4 pg (25-34); Mean Corpuscular Hgb Conc 32.3 g/dL (32-36); Mean Corpuscular Volume 84.6 fL (80-100); Mean Platelet Volume 12.1 fL (7.4-10.4); Monocytes # (auto) 0.53 K/uL (0.11-0.59); Monocytes % (auto) 5.8 %; Neutrophils # (auto) 6.22 K/uL (1.4-6.5); Neutrophils % (auto) 67.9 %; Platelet Count 371 K/uL (130-400); RDW Coefficient of Variation 14.7 % (11.5-14.5); RDW Standard Deviation 45.5 fL (36.4-46.3); Red Blood Count 4.75 M/uL (4.2-5.4); White Blood Count 9.16 K/uL (4.8-10.8)
[2019-12-24 14:31] LABS: Alanine Aminotransferase 21 U/L (12-78); Albumin Level 3.6 gm/dl (3.4-5.0); Aspartate Aminotransferase 16 U/L (15-37); BUN Creatinine Ratio 18.5 (10-20); Blood Urea Nitrogen 15 mg/dl (7-18); Calcium 9.4 mg/dl (8.5-10.1); Carbon Dioxide 29 mmol/L (21-32); Chloride 109 mmol/L (98-107); Creatinine Clr Calc Pharmacy 87.3 ml/min; Est GFR (African American) 87.7; Est GFR (Non-African American) 75.7; Glucose 164 mg/dl (70-99); Lipase 129 U/L (73-393); Potassium 4.3 mmol/L (3.5-5.1); Sodium 143 mmol/L (136-145)
[2019-12-24 14:37] LABS: Albumin Globulin Ratio 0.9 (0.9-2); Alkaline Phosphatase 89 U/L (45-117); Bilirubin,Total 0.4 mg/dl (0.2-1); Creatine Kinase 63 U/L (26-192); Creatine Kinase MB 1.1 ng/ml (0.5-3.6); Globulin 3.9 gm/dl (2.5-4.0); Total Protein 7.5 gm/dl (6.4-8.2); Troponin I < 0.015 ng/ml (0-0.045)
--- NOTE | 2019-12-24 14:53 | Cardiology Consultation ---
Date of Consultation December 24, 2019 Assessment & Plan (1) Paroxysmal atrial fibrillation: (2) Chronic diastolic HF (heart failure): (3) History of cardiac radiofrequency ablation: (4) Diabetes mellitus type 2, uncontrolled: Tikosyn loading recommended. ECG todaydemonstrates atrial fibrillation with rapid ventricular response and a QTc of 429ms. GFR greater than 60ml/min. Recommend initiation of dofetilide 500 mcg twice daily. Repeat ECG 2 to 3 hours after initial dose. If QTc increases more than 15%, decrease dose to 250 mcg BID, otherwise continue 500 mcg twice daily. If at any time after the second dose, QTC increases greater than 500 ms, dofetilide must be discontinued. Repeat ECG 2 to 3 hours after each dose of Tikosyn. Continue anticoagulation with Xarelto. Other cardiovascular medications will be continued noted in the outpatient [facility] record. If patient does not convert to sinus rhythm with medical therapy, plan external direct-current cardioversion Monday a.m. History of Present Illness Reason for Consultation: Paroxysmal atrial fibrillation, Tikosyn loading Requesting Physician: Radha NGUYỄN History of Present Illness 64-year-old female presents to the ER due to recurrent atrial fibrillation. She presented for outpatient direct-current cardioversion due to symptomatic atrial fibrillation 12/19/2019. 3 sequential direct-current shocks administered at 150 J, 200 J, 360 J. Cardioversion was unsuccessful. Due to history of sinus bradycardia during periods of sinus rhythm, sotalol was not titrated. She is not a good candidate for amiodarone due to age. Sotalol discontinued last week. She remains in atrial fibrillation and is somewhat symptomatic. Reports fa tigue and sensation of irregular heart rhythm. Heart rate controlled with titration of metoprolol. Denies lightheadedness, dizziness, syncope, or near syncope. No orthopnea, PND, or lower extremity edema. Denies chest discomfort. Allergies Allergy/AdvReac Type Severity Reaction Status Date / Time codeine Allergy Unknown Unknown, Verified 12/24/19 15:35 reaction as child Home Medications Home Medications Medication Instructions Recorded Confirmed Type Xarelto 20 mg PO DAILY 08/27/18 12/24/19 History atorvastatin 40 mg PO DAILY 08/27/18 12/24/19 History calcium carbonate-vitamin D3 1 tab PO BID 08/27/18 12/24/19 History [Calcium 500 + D] magnesium oxide 400 mg PO 3XWK 08/27/18 12/24/19 History multivitamin 1 tab PO QAM 08/27/18 12/24/19 History furosemide [Lasix] 20 mg PO DAILY PRN 11/05/18 12/24/19 History losartan 25 mg PO DAILY 11/05/18 12/24/19 History Accu-Chek Guide test strips #50 ea 11/08/18 12/24/19 Rx diltiazem HCl 120 mg PO DAILY #30 cap 11/08/18 12/24/19 Rx lancets #100 ea 11/08/18 12/24/19 Rx lancets [Accu-Chek Fastclix Lancet #100 ea 11/08/18 12/24/19 Rx Drum] lancets [Accu-Chek Fastclix Lancet #50 ea 11/08/18 12/24/19 Rx Drum] lancets [Accu-Chek Fastclix Lancet #50 ea 11/08/18 12/24/19 Rx Drum] lancets [Accu-Chek Fastclix Lancet #50 ea 11/08/18 12/24/19 Rx Drum] lancing device with lancets #50 ea 11/08/18 12/24/19 Rx [Accu-Chek FastClix Lancing Dev] metformin 500 mg PO BID #60 tab 11/08/18 12/24/19 Rx metoprolol tartrate 50 mg PO BID #60 tab 12/19/19 12/24/19 Rx turmeric root extract 500 mg PO DAILY 12/24/19 12/24/19 History Patient History Medical History Chronic diastolic HF (heart failure) Coronary artery disease 40% ostial LAD lesion per cath 2016 Diabetes mellitus type 2, uncontrolled Dyslipidemia Hypertension Paroxysmal atrial fibrillation SVT (supraventricular tachycardia) Surgical History History of cardiac radiofrequency ablation Family History Mother Diabetes Heart disease Social History Smoking Status: Never smoker Second Hand Exposure: No; Do You Dip or Chew Tobacco: No; Hx Alcohol Use: Yes Hx Substance Use: No Preferred Language: Chinese Communication Ability: Effective Visual Impairment: No Limitations Hearing Ability: Normal [employer] Required: No Beliefs That Will Affect Care: None Current Living Situation: Spouse Other Information That Helps Us Care for You: No Feels Safe at Home: Yes Safety Concerns: Feels Safe At This Time Assistive Devices: None Review of Systems Review of Systems: All systems reviewed & are unremarkable except as noted in HPI & below Physical Exam Constitutional: well developed, well nourished and + obese; no acute distress Respiratory: normal respiratory effort, lungs clear to auscultation Auscultation: no diminished lung sounds, no crackles, no rales, no rhonchi and no wheezes Cardiovascular: Rate/Rhythm: + irregularly irregular Heart Sounds: normal S1 and normal S2; no murmur and no cardiac rub Vessels: radial pulses present; no JVD and no carotid bruit Extremities: + edema (Trace bilateral pedal edema) Gastrointestinal (Abdomen): Inspection/Auscultation: abdomen normal to inspection and normal bowel sounds; abdomen not distended Percussion/Pa lpation: abdomen soft; abdomen nontender, no guarding and abdomen not rigid Skin: no rashes, warm and dry Neurologic: CN's II-XI intact bilaterally; + does not move all extremities and no focal motor deficits Psychiatric: A+Ox3, euthymic affect Results & Data ([place]) Vital Signs (Past 12 Hours) Vital Signs Temp Pulse Resp BP Pulse Ox 12/24/19 14:04 99 12/24/19 13:12 36.5 C 85 18 159/89 H 94
--- NOTE | 2019-12-24 15:11 | XRay Report ---
XR chest 1V portable CLINICAL HISTORY: Atypical chest pain COMPARISON STUDY: 11/05/2018 FINDINGS: The heart is mildly enlarged. There is no failure. There is no focal pulmonary consolidatio n. There are no pleural effusions.[ IMPRESSION: Mild cardiomegaly. No active disease in the chest. ACT 112: Negative or not required by law. Electronically signed by: Emmanuel Mathew M.D. 12/24/2019 3:09 PM
[2019-12-24] MEDS ORDERED: DOFETILIDE 125 MCG CAPSULE PO STA (15:19)
--- NOTE | 2019-12-24 16:22 | History & Physical Report ---
Date of Service December 24, 2019 Assessment & Plan (1) Atrial fibrillation: -Admit to telemetry -Patient with a longstanding history of refractory atrial fibrillation. Previously treated with ablation, cardioversion, sotalol therapy. -Most recent cardioversion on 12/18, unsuccessful. Sotalol discontinued for washout in anticipation of dofetilide therapy. Patient also started on metoprolol. -In the ED, patient remains in atrial fibrillation with rates in the 70s to 80s -Cardiology consult, starting dofetilide therapy -Anticoagulated on Xarelto, will continue -Continue metoprolol and diltiazem for rate control (2) Coronary artery disease: -Appears stable, no reports of chest pain -Continue statin, beta-geovanna (3) Diabetes mellitus type 2, uncontrolled: -Hgb A1c 6.4 08/2019 -Hold oral agents and utilize NovoLog per protocol while hospitalized (4) Chronic diastolic HF (heart failure): -Appears euvolemic -Utilizes furosemide on a as needed basis (5) Hypertension: -BP controlled, continue diltiazem, metoprolol, losartan (6) DVT prophylaxis: -Anticoagulated on Xarelto History of Present Illness Chief Complaint: Atrial fibrillation Primary Care Provider: Bettie Begum PA-C 64-year-old female with PMH DM type II, paroxysmal atrial fibrillation, HTN, CAD, and other problems to below who was initially referred for direct admission for initiation of dofetilide therapy, however due to limited bed availability, patient was sent to the ED. Patient has a longstanding history of atrial fibrillation s/p ablation and cardioversion in the past. Patient also had been on sotalol therapy. On 12/18, patient underwent attempted cardioversion x3 shocks which were unsuccessful and patient remained in atrial fibrillation. It was determined that patient would stop sotalol for a washout and she was placed on metoprolol tartrate 50 mg twice daily. Patient presents today for admission for initiation of dofetilide therapy. Patient reports she can feel her heart racing and also feels fatigued whenever she is in atrial fibrillation. She denies chest pain or shortness of breath. No lightheadedness, dizziness, diaphoresis, syncopal events. Denies orthopnea lower extremity edema. No other recent illnesses, fevers, chills. She denies abdominal pain, nausea, vomiting, diarrhea. No urinary symptoms. In the ED, EKG demonstrated atrial fibrillation rate of 76. BP is stable. Labs are unremarkable. Allergies Allergy/AdvReac Type Severity Reaction Status Date / Time codeine Allergy Unknown Unknown, Verified 12/24/19 15:35 reaction as child Home Medications Home Medications Medication Instructions Recorded Confirmed Type Xarelto 20 mg PO DAILY 08/27/18 12/24/19 History atorvastatin 40 mg PO DAILY 08/27/18 12/24/19 History calcium carbonate-vitamin D3 1 tab PO BID 08/27/18 12/24/19 History [Calcium 500 + D] magnesium oxide 400 mg PO 3XWK 08/27/18 12/24/19 History multivitamin 1 tab PO QAM 08/27/18 12/24/19 History furosemide [Lasix] 20 mg PO DAILY PRN 11/05/18 12/24/19 History losartan 25 mg PO DAILY 11/05/18 12/24/19 History Accu-Chek Guide test strips #50 ea 11/08/18 12/24/19 Rx diltiazem HCl 120 mg PO DAILY #30 cap 11/08/18 12/24/19 Rx lancets #100 ea 11/08/18 12/24/19 Rx lancets [Accu-Chek Fastclix Lancet #100 ea 11/08/18 12/24/19 Rx Drum] lancets [Accu-Chek Fastclix Lancet #50 ea 11/08/18 12/24/19 Rx Drum] lancets [Accu-Chek Fastclix Lancet #50 ea 11/08/18 12/24/19 Rx Drum] lancets [Accu-Chek Fastclix Lancet #50 ea 11/08/18 12/24/19 Rx Drum] lancing device with lancets #50 ea 11/08/18 12/24/19 Rx [Accu-Chek FastClix Lancing Dev] metformin 500 mg PO BID #60 tab 11/08/18 12/24/19 Rx metoprolol tartrate 50 mg PO BID #60 tab 12/19/19 12/24/19 Rx turmeric root extract 500 mg PO DAILY 12/24/19 12/24/19 History Past Med/Surg History Medical History Chronic diastolic HF (heart failure) Coronary artery disease 40% ostial LAD lesion per cath 2016 Diabetes mellitus type 2, uncontrolled Dyslipidemia Hypertension Paroxysmal atrial fibrillation SVT (supraventricular tachycardia) Surgical History History of cardiac radiofrequency ablation Family History Mother Diabetes Heart disease Social History Smoking Status: Never smoker Second Hand Exposure: No; Do You Dip or Chew Tobacco: No; Hx Alcohol Use: Yes Hx Substance Use: No Preferred Language: Citizen Of [place] Communication Ability: Effective Visual Impairment: No Limitations Hearing Ability: Normal Yard Hostler Required: No Beliefs That Will Affect Care: None Current Living Situation: Spouse Other Information That Helps Us Care for You: No Feels Safe at Home: Yes Safety Concerns: Feels Safe At This Time Assistive Devices: CPAP Review of Systems Review of Systems: ROS per HPI, all other systems reviewed and negative Physical Exam Constitutional: WD/WN, vitals as above + obese Eyes: PERRL, conjunctivae normal, anicteric sclerae ENMT: external ear and nose normal, oropharynx normal Respiratory: normal respiratory effort, lungs clear to auscultation Cardiovascular: Rate/Rhythm: regular rate and + irregularly irregular Vessels: normal peripheral pulses Extremities: no edema Gastrointestinal (Abdomen): normal bowel sounds, soft, nontender, no hepatosplenomegaly Musculoskeletal: no cyanosis or clubbing, extremities motor strength 5/5 Skin: no rashes, warm and dry Neurologic: PERRL, EOMI, accommodation nl, no face palsy, no dysarthria Psychiatric: A+Ox3, euthymic affect Results & Data Results & Data ([facility]) Vital Signs (Past 12 Hours) Vital Signs Temp Pulse Resp BP Pulse Ox 12/24/19 14:30 66 17 12/24/19 14:04 99 12/24/19 14:00 67 18 12/24/19 13:56 73 19 12/24/19 13:12 36.5 C 85 18 159/89 H 94 Laboratory Results Short CBC 12/24/19 Range/Units 14:00 WBC 9.16 (4.8-10.8) K/uL Hgb 13.0 (12.0-16.0) g/dL Hct 40.2 (37-47) % Plt Count 371 (130-400) K/uL BMP 12/24/19 14:00 Sodium 143 Potassium 4.3 Chloride 109 H Carbon Dioxide 29 BUN 15 Creatinine 0.81 Glucose 164 H Calcium 9.4 Cardiac Enzymes 12/24/19 Range/Units 14:00 Total Creatine Kinase 63 (26-192) U/L CK-MB (CK-2) 1.1 (0.5-3.6) ng/ml Troponin I < 0.015 (0-0.045) ng/ml Liver Function 12/24/19 Range/Units 14:00 Total Bilirubin 0.4 (0.2-1) mg/dl AST 16 (15-37) U/L ALT 21 (12-78) U/L Alkaline Phosphatase 89 (45-117) U/L Albumin 3.6 (3.4-5.0) gm/dl Diagnostic Findings CXR IMPRESSION: Mild cardiomegaly. No active disease in the chest. Code Status & VTE Plan VTE Prophylaxis Plan VTE Prophylaxis will be ordered: No Supervising Physician Co-Signing Physician Notes I saw this patient with the Nurse Practitioner, I participated in the history, physical, review of systems, and physical exam. I reviewed the medications with the patient and the Nurse Practitioner and helped reconcile the medications. I helped take a detailed family and social history as well. I formulated the assessment and plan personally with the Nurse Practitioner went over it with the patient. Physical Exam Gen-AAO x 3, NAD, Afebrile Head-NCAT, EOMI, PERRLA, Anicteric Sclera, No Posterior Pharyngeal Erythema Neck-Supple, No JVD, No Thyromegaly, No Masses, No LAD, No Bruits Lungs-Clear to Auscultation Bilaterally, No Rales, No Rhonchi, No Wheezing, No Crepitus Chest-No S4, +S1, +S2, No S3, No Murmurs, No Rubs, No Gallops, No Ectopy Abdomen-Soft, Bowel Sounds Present, Non Tender, Non Distended, No Hepatomegaly, No Splenomegaly, No Palpable Masses, No Rebound, No Rigidity, No Guarding Musculoskeletal-Full Range of Motion Bilaterally, No CVAT Extremities-No Cyanosis, No Clubbing, No Edema Nuero-Cranial Nerves II-XII grossly intact, Motor WNL, DTRs WNL, Strength WNL, Non Focal Psych-Normal Mood
--- NOTE | 2019-12-24 16:29 | Electrocardiogram Report ---
Test Reason : Blood Pressure : / mmHG Vent. Rate : 076 BPM Atrial Rate : 080 BPM P-R Int : 000 ms QRS Dur : 086 ms QT Int : 382 ms P-R-T Axes : 000 067 -16 degrees QTc Int : 429 ms Atrial fibrillation Abnormal QRS-T angle, consider primary T wave abnormality Abnormal ECG When compared with ECG of 08-MAY-2019 08:23, Atrial fibrillation has replaced Sinus rhythm Vent. rate has increased BY 25 BPM Confirmed by Norman Lawrence ([id number]) on 12/24/2019 4:29:09 PM Referred By: REFERRED SELF Confirmed By:Norman Lawrence
[2019-12-24] MEDS ORDERED: CARBOHYDRATES FOR HYPOGLYCEMIA PO PRN (17:32)
[2019-12-24] MEDS ORDERED: DEXTROSE 50% 50 ML SYRINGE IV PRN (17:32)
[2019-12-24] MEDS ORDERED: ACETAMINOPHEN 325 MG TAB PO PRN (17:32)
[2019-12-24] MEDS ORDERED: GLUCOSE 10 TABS/TUBE PO PRN (17:32)
[2019-12-24] MEDS ORDERED: GLUCAGON FOR INJ 1 MG VIAL SQ PRN (17:32)
[2019-12-24] MEDS ORDERED: GLUCOSE 40% GEL 15 GM TUBE PO PRN (17:32)
[2019-12-24] MEDS: INSULIN ASPART 100 UNITS/ML 3 ML PEN SC SCH ×2 (18:30→21:23)
[2019-12-24] MEDS: METOPROLOL TARTRATE 50 MG TAB PO SCH (21:22)
[2019-12-24] MEDS ORDERED: Nursing to Pharmacy Communication SCH (21:30)
[2019-12-25 07:20] LABS: Hematocrit (blood only) 38.8 % (37-47); Hemoglobin 12.6 g/dL (12.0-16.0); Mean Corpuscular Hemoglobin 27.5 pg (25-34); Mean Corpuscular Hgb Conc 32.5 g/dL (32-36); Mean Corpuscular Volume 84.7 fL (80-100); Mean Platelet Volume 11.4 fL (7.4-10.4); Platelet Count 301 K/uL (130-400); RDW Coefficient of Variation 14.5 % (11.5-14.5); RDW Standard Deviation 44.9 fL (36.4-46.3); Red Blood Count 4.58 M/uL (4.2-5.4); White Blood Count 7.63 K/uL (4.8-10.8)
[2019-12-25 07:39] LABS: Estimated Average Glucose 148 mg/dl; Hemoglobin A1C 6.8 % (4.5-5.6)
--- NOTE | 2019-12-25 07:49 | Hospitalist Progress Note ---
Date of Service December 25, 2019 Assessment & Plan (1) Atrial fibrillation: -Patient with a longstanding history of refractory atrial fibrillation. Previously treated with ablation, cardioversion, sotalol therapy. -Most recent cardioversion on 12/18, unsuccessful. Sotalol discontinued for washout in anticipation of dofetilide therapy. Patient also started on metoprolol. -In the ED, patient remained in atrial fibrillation with rates in the 70s to 80s -Cardiology consult, starting dofetilide (Tikosyn) therapy -Patient converted to normal sinus rhythm this early afternoon (12/24) -Anticoagulated on Xarelto, will continue -discuss further need for metoprolol and diltiazem for rate control w/ cardiology (2) Coronary artery disease: -Appears stable, no reports of chest pain -Continue statin, beta-geovanna (3) Diabetes mellitus type 2, uncontrolled: -Hgb A1c 6.4 08/2019 -Hold oral agents and utilize NovoLog per protocol while hospitalized (4) Chronic diastolic HF (heart failure): -Appears euvolemic -Utilizes furosemide on a as needed basis (5) Hypertension: -BP controlled, continue diltiazem, metoprolol, losartan (6) DVT prophylaxis: -Anticoagulated on Xarelto Admission and Anticipated Discharge Date Admission Date: December 24, 2019 Subjective Patient is currently sitting up in bed, in no acute distress. Denies any palpitations, chest pain, shortness of breath, dizziness or lightheadedness. Patient was examined early afternoon, and she just converted to sinus rhythm on Tikosyn. Review of Systems Review of Systems: All systems reviewed & are unremarkable except as noted in HPI & below Constitutional: no fever and no chills Respiratory: no cough and no dyspnea Cardiovascular: no chest pain and no palpitations Gastrointestinal: no abdominal pain, no nausea and no vomiting Physical Exam Physical Exam: Constitutional: WD/WN, vitals as above + obese Eyes: PERRL, EOMI, conjunctivae normal, anicteric sclerae ENMT: external ear and nose normal, oropharynx normal Respiratory: normal respiratory effort, lungs clear to auscultation Cardiovascular: Rate/Rhythm: regular rate and rhythm Vessels: normal peripheral pulses Extremities: no edema Gastrointestinal (Abdomen): normal bowel sounds, soft, nontender, nondistended Musculoskeletal: no cyanosis or clubbing, extremities motor strength 5/5 Skin: no rashes, warm and dry Neurologic: PERRL, EOMI, no face palsy, no dysarthria, moves all 4 extremities spontaneously Psychiatric: A+Ox3, euthymic affect Results & Data Results & Data ([facility]) Vital Signs (Past 12 Hours) Vital Signs Temp Pulse Pulse Resp BP Pulse Ox 12/25/19 03:58 36.4 C L 79 16 133/85 97 12/25/19 00:02 36.4 C L 55 L 16 113/73 97 12/25/19 00:00 85 12/24/19 20:15 36.4 C L 75 16 137/85 97 Laboratory Results 12/25/19 12/25/19 12/25/19 Range/Units Unknown Unknown 16:14 WBC (4.8-10.8) K/uL RBC (4.2-5.4) M/uL Hgb (12.0-16.0) g/dL Hct (37-47) % MCV (80-100) fL MCH (25-34) pg MCHC (32-36) g/dL RDW Std Deviation (36.4-46.3) fL RDW Coeff of Da (11.5-14.5) % Plt Count (130-400) K/uL MPV (7.4-10.4) fL Sodium (136-145) mmol/L Potassium (3.5-5.1) mmol/L Chloride (98-107) mmol/L Carbon Dioxide (21-32) mmol/L Anion Gap (3-11) BUN (7-18) mg/dl Creatinine (0.6-1.2) mg/dl Est Cr Clr Drug Dosing ml/min Est GFR ( Amer) Est GFR (Non-Af Amer) BUN/Creatinine Ratio (10-20) Glucose (70-99) mg/dl POC Glucose 98 (70-99) mg/dl Estimat Average Glucose mg/dl Hemoglobin A1c (4.5-5.6) % Calcium (8.5-10.1) mg/dl Magnesium (1.8-2.4) mg/dl COVID-19 [facility] C Ab Screen (Neg) SARS-CoV-2, RNA, NAAT NEGATIVE (NEGATIVE) 12/25/19 12/25/19 12/25/19 Range/Units 11:19 07:28 06:57 WBC (4.8-10.8) K/uL RBC (4.2-5.4) M/uL Hgb (12.0-16.0) g/dL Hct (37-47) % MCV (80-100) fL MCH (25-34) pg MCHC (32-36) g/dL RDW Std Deviation (36.4-46.3) fL RDW Coeff of Da (11.5-14.5) % Plt Count (130-400) K/uL MPV (7.4-10.4) fL Sodium (136-145) mmol/L Potassium (3.5-5.1) mmol/L Chloride (98-107) mmol/L Carbon Dioxide (21-32) mmol/L Anion Gap (3-11) BUN (7-18) mg/dl Creatinine (0.6-1.2) mg/dl Est Cr Clr Drug Dosing ml/min Est GFR ( Amer) Est GFR (Non-Af Amer) BUN/Creatinine Ratio (-20) Glucose (70-99) mg/dl POC Glucose 125 H 105 H (70-99) mg/dl Estimat Average Glucose mg/dl Hemoglobin A1c (4.5-5.6) % Calcium (8.5-10.1) mg/dl Magnesium 2.2 (1.8-2.4) mg/dl COVID-19 Eval Order Hepatitis C Ab Screen (Neg) SARS-CoV-2, RNA, NAAT (NEGATIVE) 12/25/19 12/25/19 12/25/19 Range/Units 06:57 06:57 06:57 WBC (4.8-10.8) K/uL RBC (4.2-5.4) M/uL Hgb (12.0-16.0) g/dL Hct (37-47) % MCV (80-100) fL MCH (25-34) pg MCHC (32-36) g/dL RDW Std Deviation (36.4-46.3) fL RDW Coeff of Da (11.5-14.5) % Plt Count (130-400) K/uL MPV (7.4-10.4) fL Sodium 141 (136-145) mmol/L Potassium 4.0 (3.5-5.1) mmol/L Chloride 109 H (98-107) mmol/L Carbon Dioxide 29 (21-32) mmol/L Anion Gap 3.0 (3-11) BUN 13 (7-18) mg/dl Creatinine 0.63 (0.6-1.2) mg/dl Est Cr Clr Drug Dosing 111.6 ml/min Est GFR ( Amer) 108.3 Est GFR (Non-Af Amer) 93.5 BUN/Creatinine Ratio 20.5 H (10-20) Glucose 99 (70-99) mg/dl POC Glucose (70-99) mg/dl Estimat Average Glucose 148 mg/dl Hemoglobin A1c 6.8 H (4.5-5.6) % Calcium 8.7 (8.5-10.1) mg/dl Magnesium (1.8-2.4) mg/dl COVID-19 Eval Order Hepatitis C Ab Screen Neg (Neg) SARS-CoV-2, RNA, NAAT (NEGATIVE) 12/25/19 12/24/19 Range/Units 06:57 21:07 WBC 7.63 (4.8-10.8) K/uL RBC 4.58 (4.2-5.4) M/uL Hgb 12.6 (12.0-16.0) g/dL Hct 38.8 (37-47) % MCV 84.7 (80-100) fL MCH 27.5 (25-34) pg MCHC 32.5 (32-36) g/dL RDW Std Deviation 44.9 (36.4-46.3) fL RDW Coeff of Da 14.5 (11.5-14.5) % Plt Count 301 (130-400) K/uL MPV 11.4 H (7.4-10.4) fL Sodium (136-145) mmol/L Potassium (3.5-5.1) mmol/L Chloride (98-107) mmol/L Carbon Dioxide (21-32) mmol/L Anion Gap (3-11) BUN (7-18) mg/dl Creatinine (0.6-1.2) mg/dl Est Cr Clr Drug Dosing ml/min Est GFR ( Amer) Est GFR (Non-Af Amer) BUN/Creatinine Ratio (10-20) Glucose (70-99) mg/dl POC Glucose 121 H (70-99) mg/dl Estimat Average Glucose mg/dl Hemoglobin A1c (4.5-5.6) % Calcium (8.5-10.1) mg/dl Magnesium (1.8-2.4) mg/dl COVID-19 Eval Order Hepatitis C Ab Screen (Neg) SARS-CoV-2, RNA, NAAT (NEGATIVE) Medications Administered Current Inpatient Medications Acetaminophen (Acetaminophen 325 Mg Tab) 650 mg PO Q4H PRN PRN Reason: Pain or Fever Stop: 01/23/20 17:31 Atorvastatin Calcium (Atorvastatin 40 Mg Tab) 40 mg PO DAILY [facility] Stop: 01/24/20 08:59 Last Admin: 12/25/19 08:09 Dose: 40 mg Documented by: Dextrose (Dextrose 50% 50 Ml Syringe) 25 - 50 ml IV UD PRN; Protocol PRN Reason: Hypoglycemia Protocol Stop: 01/23/20 17:31 Diltiazem HCl (Diltiazem Hcl 120 Mg Capcr) 120 mg PO DAILY [facility] Stop: 01/24/20 08:59 Last Admin: 12/25/19 08:10 Dose: 120 mg Documented by: Dofetilide (Dofetilide 125 Mcg Capsule) 250 mcg PO BID@0800,1800 [facility] Stop: 01/24/20 07:59 Last Admin: 12/25/19 17:48 Dose: 250 mcg Documented by: Glucagon (Glucagon For Inj 1 Mg Vial) 1 mg SQ UD PRN; Protocol PRN Reason: Hypoglycemia Protocol Stop: 01/23/20 17:31 Glucose (Glucose 10 Tabs/Tube) 4 - 8 tabs PO UD PRN; Protocol PRN Reason: Hypoglycemia Protocol Stop: 01/23/20 17:31 Glucose (Glucose 40% Gel 15 Gm Tube) 15 - 30 gm PO UD PRN; Protocol PRN Reason: Hypoglycemia Protocol Stop: 01/23/20 17:31 Insulin Aspart (Insulin Aspart 100 Units/Ml 3 Ml Pen) 0 units SC ACHS [facility] Stop: 01/23/20 17:31 Last Admin: 12/25/19 17:05 Dose: 1 units Documented by: Losartan Potassium (Losartan Potassium 25 Mg Tab) 25 mg PO HS [facility] Stop: 01/24/20 20:59 Metoprolol Tartrate (Metoprolol Tartrate 50 Mg Tab) 50 mg PO BID [facility] Stop: 01/23/20 20:59 Last Admin: 12/25/19 08:10 Dose: 50 mg Documented by: Miscellaneous (Carbohydrates For Hypoglycemia ) 15 - 30 gm PO UD PRN PRN Reason: Hypoglycemia Protocol Stop: 01/23/20 17:31 Rivaroxaban (Rivaroxaban 20 Mg Tab) 20 mg PO QDB [facility] Stop: 01/24/20 07:29 Last Admin: 12/25/19 08:10 Dose: 20 mg Documented by:
[2019-12-25 07:58] LABS: BUN Creatinine Ratio 20.5 (10-20); Calcium 8.7 mg/dl (8.5-10.1); Creatinine Clr Calc Pharmacy 111.6 ml/min; Est GFR (African American) 108.3; Est GFR (Non-African American) 93.5
[2019-12-25] MEDS: DOFETILIDE 125 MCG CAPSULE PO SCH ×2 (08:07→17:48)
[2019-12-25] MEDS: INSULIN ASPART 100 UNITS/ML 3 ML PEN SC SCH ×4 (08:08→20:45)
[2019-12-25] MEDS: ATORVASTATIN 40 MG TAB PO SCH (08:09)
[2019-12-25] MEDS: METOPROLOL TARTRATE 50 MG TAB PO SCH ×2 (08:10→20:45)
[2019-12-25] MEDS: RIVAROXABAN 20 MG TAB PO SCH (08:10)
[2019-12-25] MEDS: dilTIAZem HCL 120 MG CAPCR PO SCH (08:10)
--- NOTE | 2019-12-25 08:21 | Communication Note ---
Date of Service: December 25, 2019 Telemetry findings from overnight reviewed with monitor sample clerk by phone. Pt has remained atrial fibrillation overnight and thus far this morning in the 110's. EKG performed yesterday 12/24/2019 at 3:42 p.m. reviewed independently revealed atrial fibrillation at 76 beats per minute with QT interval 425 milliseconds. Repeat EKG performed this morning reviewed independently reveals atrial fibrillation 100 beats per minute, with corrected QT interval of 454 milliseconds. Continue dofetilide 250 micrograms p.o. twice daily. Continue current dose of diltiazem and metoprolol. Obtain EKG, 2 hours after a.m. dofetilide dose.
[2019-12-25] MEDS ORDERED: LOSARTAN POTASSIUM 25 MG TAB PO SCH (09:00)
--- NOTE | 2019-12-25 11:02 | Cardiology Progress Note ---
Date of Service December 25, 2019 Assessment & Plan (1) Atrial flutter with rapid ventricular response: (2) Atrial fibrillation with RVR: (3) Coronary artery disease: Continue dofetilide (Tikosyn), 250 mcg every 12 hours. Continue diltiazem and Toprol as prescribed. Continue Xarelto anticoagulation without interruption. Continue EKG monitoring continuously Measure QTc interval 2 to 3 hours after each dose of dofetilide Covid testing in anticipation for possible direct-current cardioversion in the AM of 12/27/2019 Admission and Anticipated Discharge Date Admission Date: December 24, 2019 Supervising Physician Co-Signing Physician Notes Patient was seen and examined. Telemetry reviewed Assessment as well outlined above. Currently tolerating Tikosyn without signs of arrhythmia or QT prolongation We will continue full anticoagulation and medical therapies as ordered. If no spontaneous conversion to sinus rhythm likely proceed with synchronized electrical cardioversion this admission Subjective Patient seen and examined. Chart, medications, and telemetry reviewed. Feeling OK. No complaints or concerns. No chest pain, worsening dyspnea, or syncope. Initial dose of dofetilide administered on 12/24/2019 at 15:49 EKG dated and timed 24-DEC-2019 @ 14:05:17: Atrial fibrillation with a QTc of 429 ms. EKG dated and timed 24-DEC-2019 @ 18:46:13: Atrial flutter with variable A-V block, T wave abnormality, QTc 484 ms. EKG dated and timed 25-DEC-2019 @ 07:02:34: Atrial fibrillation with a QTc of 454 ms. EKG dated and timed 25-DEC-2019 @ 10:01:47: Atrial flutter with variable A-V block with nonspecific T wave abnormality and a QTc of 457 ms. Continuous telemetry monitoring reveals atrial fibrillation in the 80s to 110 bpm range. Review of Systems Review of Systems: All systems reviewed & are unremarkable except as noted in HPI & below Physical Exam Physical Exam: General: A&Ox3. NAD. HEENT: Normocephalic. Atraumatic. PER. Conjunctiva pink, sclera clear. Neck: No carotid bruits. No JVD. Heart: Irregularly irregular in the 80's. No murmur. Lungs: Clear to auscultation. Abdomen: +BS. Extremities: No clubbing, cyanosis, or significant edema. Limited neurological examination is without focal deficits. Results & Data ([facility]) Vital Signs (Past 12 Hours) Vital Signs Temp Pulse Pulse Resp BP Pulse Ox 12/25/19 08:09 36.5 C 106 H 18 138/94 96 12/25/19 08:00 72 12/25/19 03:58 36.4 C L 79 16 133/85 97 12/25/19 00:02 36.4 C L 55 L 16 113/73 97 12/25/19 00:00 85 Laboratory Results Laboratory Results - last 24 hr 12/24/19 12/24/19 12/24/19 14:00 14:00 14:00 WBC 9.16 RBC 4.75 Hgb 13.0 Hct 40.2 MCV 84.6 MCH 27.4 MCHC 32.3 RDW Std Deviation 45.5 RDW Coeff of Da 14.7 H Plt Count 371 MPV 12.1 H Immature Gran % (Auto) 0.2 Neut % (Auto) 67.9 Lymph % (Auto) 22.9 [place] % (Auto) 5.8 Eos % (Auto) 3.1 Baso % (Auto) 0.1 Neut # (Auto) 6.22 Lymph # (Auto) 2.10 [place] # (Auto) 0.53 Eos # (Auto) 0.28 Baso # (Auto) 0.01 Immature Gran # (Auto) 0.02 PT 12.8 H INR 1.2 H APTT 35.3 H PTT Ratio 1.3 Sodium 143 Potassium 4.3 Chloride 109 H Carbon Dioxide 29 Anion Gap 5.0 BUN 15 Creatinine 0.81 Est Cr Clr Drug Dosing 87.3 Est GFR ( Amer) 87.7 Est GFR (Non-Af Amer) 75.7 BUN/Creatinine Ratio 18.5 Glucose 164 H POC Glucose Estimat Average Glucose Hemoglobin A1c Calcium 9.4 Magnesium Total Bilirubin 0.4 AST 16 ALT 21 Alkaline Phosphatase 89 Total Creatine Kinase 63 CK-MB (CK-2) 1.1 CK/CKMB % Calc 1.7 Troponin I < 0.015 Total Protein 7.5 Albumin 3.6 Globulin 3.9 Albumin/Globulin Ratio 0.9 Lipase 129 Hepatitis C Ab Screen 12/24/19 12/24/19 12/25/19 17:31 21:07 06:57 WBC 7.63 RBC 4.58 Hgb 12.6 Hct 38.8 MCV 84.7 MCH 27.5 MCHC 32.5 RDW Std Deviation 44.9 RDW Coeff of Da 14.5 Plt Count 301 MPV 11.4 H Immature Gran % (Auto) Neut % (Auto) Lymph % (Auto) [place] % (Auto) Eos % (Auto) Baso % (Auto) Neut # (Auto) Lymph # (Auto) [place] # (Auto) Eos # (Auto) Baso # (Auto) Immature Gran # (Auto) PT INR APTT PTT Ratio Sodium Potassium Chloride Carbon Dioxide Anion Gap BUN Creatinine Est Cr Clr Drug Dosing Est GFR ( Amer) Est GFR (Non-Af Amer) BUN/Creatinine Ratio Glucose POC Glucose 99 121 H Estimat Average Glucose Hemoglobin A1c Calcium Magnesium Total Bilirubin AST ALT Alkaline Phosphatase Total Creatine Kinase CK-MB (CK-2) CK/CKMB % Calc Troponin I Total Protein Albumin Globulin Albumin/Globulin Ratio Lipase Hepatitis C Ab Screen 12/25/19 12/25/19 12/25/19 06:57 06:57 06:57 WBC RBC Hgb Hct MCV MCH MCHC RDW Std Deviation RDW Coeff of Da Plt Count MPV Immature Gran % (Auto) Neut % (Auto) Lymph % (Auto) [place] % (Auto) Eos % (Auto) Baso % (Auto) Neut # (Auto) Lymph # (Auto) [place] # (Auto) Eos # (Auto) Baso # (Auto) Immature Gran # (Auto) PT INR APTT PTT Ratio Sodium 141 Potassium 4.0 Chloride 109 H Carbon Dioxide 29 Anion Gap 3.0 BUN 13 Creatinine 0.63 Est Cr Clr Drug Dosing 111.6 Est GFR ( Amer) 108.3 Est GFR (Non-Af Amer) 93.5 BUN/Creatinine Ratio 20.5 H Glucose 99 POC Glucose Estimat Average Glucose 148 Hemoglobin A1c 6.8 H Calcium 8.7 Magnesium Total Bilirubin AST ALT Alkaline Phosphatase Total Creatine Kinase CK-MB (CK-2) CK/CKMB % Calc Troponin I Total Protein Albumin Globulin Albumin/Globulin Ratio Lipase Hepatitis C Ab Screen Neg 12/25/19 12/25/19 06:57 07:28 WBC RBC Hgb Hct MCV MCH MCHC RDW Std Deviation RDW Coeff of Da Plt Count MPV Immature Gran % (Auto) Neut % (Auto) Lymph % (Auto) [place] % (Auto) Eos % (Auto) Baso % (Auto) Neut # (Auto) Lymph # (Auto) [place] # (Auto) Eos # (Auto) Baso # (Auto) Immature Gran # (Auto) PT INR APTT PTT Ratio Sodium Potassium Chloride Carbon Dioxide Anion Gap BUN Creatinine Est Cr Clr Drug Dosing Est GFR ( Amer) Est GFR (Non-Af Amer) BUN/Creatinine Ratio Glucose POC Glucose 105 H Estimat Average Glucose Hemoglobin A1c Calcium Magnesium 2.2 Total Bilirubin AST ALT Alkaline Phosphatase Total Creatine Kinase CK-MB (CK-2) CK/CKMB % Calc Troponin I Total Protein Albumin Globulin Albumin/Globulin Ratio Lipase Hepatitis C Ab Screen
--- NOTE | 2019-12-25 12:55 | Electrocardiogram Report ---
Test Reason : Blood Pressure : / mmHG Vent. Rate : 092 BPM Atrial Rate : 249 BPM P-R Int : 000 ms QRS Dur : 080 ms QT Int : 392 ms P-R-T Axes : 000 035 -24 degrees QTc Int : 484 ms Atrial flutter with variable A-V block Abnormal ECG When compared with ECG of 24-DEC-2019 15:42, Atrial flutter has replaced Atrial fibrillation QT has lengthened Confirmed by Ata Davis ([id number]) on 12/25/2019 12:55:42 PM Referred By: REFERRED SELF Confirmed By:Ata Davis
--- NOTE | 2019-12-25 13:17 | Electrocardiogram Report ---
Test Reason : Blood Pressure : / mmHG Vent. Rate : 100 BPM Atrial Rate : 000 BPM P-R Int : 000 ms QRS Dur : 084 ms QT Int : 352 ms P-R-T Axes : 000 064 006 degrees QTc Int : 454 ms Atrial fibrillation Abnormal ECG When compared with ECG of 24-DEC-2019 15:42, Atrial flutter no longer present Otherwise no significant change Confirmed by Ata Davis ([id number]) on 12/25/2019 1:17:35 PM Referred By: REFERRED SELF Confirmed By:Ata Davis
--- NOTE | 2019-12-25 13:26 | Electrocardiogram Report ---
Test Reason : Blood Pressure : / mmHG Vent. Rate : 088 BPM Atrial Rate : 250 BPM P-R Int : 000 ms QRS Dur : 090 ms QT Int : 378 ms P-R-T Axes : 000 054 007 degrees QTc Int : 457 ms Atrial flutter with variable A-V block Nonspecific T wave abnormality Anterior leads Abnormal ECG When compared with ECG of 25-DEC-2019 07:02, Atrial flutter has replaced Atrial fibrillation Confirmed by Ata Davis ([id number]) on 12/25/2019 1:26:05 PM Referred By: REFERRED SELF Confirmed By:Ata Davis
--- NOTE | 2019-12-25 16:52 | Electrocardiogram Report ---
Test Reason : Blood Pressure : / mmHG Vent. Rate : 063 BPM Atrial Rate : 063 BPM P-R Int : 144 ms QRS Dur : 078 ms QT Int : 408 ms P-R-T Axes : 000 073 018 degrees QTc Int : 417 ms Normal sinus rhythm Normal ECG When compared with ECG of 25-DEC-2019 10:01, Sinus rhythm has replaced Atrial flutter Confirmed by Ata Davis ([id number]) on 12/25/2019 4:52:33 PM Referred By: REFERRED SELF Confirmed By:Ata Davis
[2019-12-25] MEDS: LOSARTAN POTASSIUM 25 MG TAB PO SCH (20:45)
[2019-12-26 06:40] LABS: Hemoglobin 11.4 g/dL (12.0-16.0); Mean Corpuscular Hemoglobin 27.1 pg (25-34); Mean Corpuscular Hgb Conc 31.7 g/dL (32-36); Mean Corpuscular Volume 85.5 fL (80-100); Mean Platelet Volume 11.8 fL (7.4-10.4); Platelet Count 305 K/uL (130-400); RDW Coefficient of Variation 14.7 % (11.5-14.5); Red Blood Count 4.21 M/uL (4.2-5.4)
[2019-12-26 07:14] LABS: BUN Creatinine Ratio 23.3 (10-20); Calcium 8.6 mg/dl (8.5-10.1); Creatinine Clr Calc Pharmacy 100.6 ml/min; Est GFR (African American) 104.6; Est GFR (Non-African American) 90.3; Magnesium 2.3 mg/dl (1.8-2.4); Potassium 3.8 mmol/L (3.5-5.1)
[2019-12-26] MEDS: INSULIN ASPART 100 UNITS/ML 3 ML PEN SC SCH ×4 (08:01→20:44)
[2019-12-26] MEDS: RIVAROXABAN 20 MG TAB PO SCH (08:03)
[2019-12-26] MEDS: METOPROLOL TARTRATE 50 MG TAB PO SCH ×2 (08:03→20:44)
[2019-12-26] MEDS: ATORVASTATIN 40 MG TAB PO SCH (08:04)
[2019-12-26] MEDS: DOFETILIDE 125 MCG CAPSULE PO SCH ×2 (08:04→17:59)
[2019-12-26] MEDS: dilTIAZem HCL 120 MG CAPCR PO SCH (08:04)
--- NOTE | 2019-12-26 08:20 | Hospitalist Progress Note ---
Date of Service December 26, 2019 Assessment & Plan (1) Atrial fibrillation: -Patient with a longstanding history of refractory atrial fibrillation. Previously treated with ablation, cardioversion, sotalol therapy. -Most recent cardioversion on 12/18, unsuccessful. Sotalol discontinued for washout in anticipation of dofetilide therapy. Patient also started on metoprolol. -In the ED, patient remained in atrial fibrillation with rates in the 70s to 80s -Cardiology consult, starting dofetilide (Tikosyn) therapy -Patient converted to normal sinus rhythm early afternoon on (12/24) -Anticoagulated on Xarelto, will continue -discuss further need for metoprolol and diltiazem for rate control w/ cardiology -Plan to discontinue diltiazem -Tikosyn 250 mg twice a day prescription sent to patient's pharmacy -Follow-up EKG tomorrow, December 26 after morning dose of Tikosyn, if QTC acceptable, patient can be discharged (2) Coronary artery disease: -Appears stable, no reports of chest pain -Continue statin, beta-geovanna (3) Diabetes mellitus type 2, uncontrolled: -Hgb A1c 6.4 08/2019 -Hold oral agents and utilize NovoLog per protocol while hospitalized (4) Chronic diastolic HF (heart failure): -Appears euvolemic -Utilizes furosemide on a as needed basis (5) Hypertension: -BP controlled, continue diltiazem, metoprolol, losartan (6) DVT prophylaxis: -Anticoagulated on Xarelto Admission and Anticipated Discharge Date Admission Date: December 24, 2019 Subjective Patient is sitting up in bed, in no acute distress, working on her computer. Denies any fevers, chills, chest pain, palpitations, shortness of breath, dizziness or lightheadedness. Converted to normal sinus rhythm yesterday early afternoon. Review of Systems Review of Systems: All systems reviewed & are unremarkable except as noted in HPI & below Constitutional: no fever and no chills Respiratory: no cough and no dyspnea Cardiovascular: no chest pain and no palpitations Gastrointestinal: no abdominal pain, no nausea and no vomiting Physical Exam Physical Exam: Constitutional: WD/WN, vitals as above + obese Eyes: PERRL, EOMI, conjunctivae normal, anicteric sclerae ENMT: external ear and nose normal, oropharynx normal Respiratory: normal respiratory effort, lungs clear to auscultation Cardiovascular: Rate/Rhythm: +bradycardic Vessels: normal peripheral pulses Extremities: no edema Gastrointestinal (Abdomen): normal bowel sounds, soft, nontender, nondistended Musculoskeletal: no cyanosis or clubbing, extremities motor strength 5/5 Skin: no rashes, warm and dry Neurologic: PERRL, EOMI, no face palsy, no dysarthria, moves all 4 extremities spontaneously Psychiatric: A+Ox3, euthymic affect Results & Data Results & Data ([facility]) Vital Signs (Past 12 Hours) Vital Signs Temp Pulse Pulse Resp BP BP Pulse Ox 12/26/19 08:05 36.9 C 64 18 118/60 99 12/26/19 03:00 36.4 C L 67 16 117/69 93 12/26/19 00:01 36.4 C L 55 L 16 130/77 98 12/25/19 20:44 64 71 130/78 Laboratory Results 12/26/19 12/26/19 12/26/19 Range/Units 07:36 05:58 05:58 WBC 8.10 (4.8-10.8) K/uL RBC 4.21 (4.2-5.4) M/uL Hgb 11.4 L (12.0-16.0) g/dL Hct 36.0 L (37-47) % MCV 85.5 (80-100) fL MCH 27.1 (25-34) pg MCHC 31.7 L (32-36) g/dL RDW Std Deviation 46.0 (36.4-46.3) fL RDW Coeff of Da 14.7 H (11.5-14.5) % Plt Count 305 (130-400) K/uL MPV 11.8 H (7.4-10.4) fL Sodium 140 (136-145) mmol/L Potassium 3.8 (3.5-5.1) mmol/L Chloride 107 (98-107) mmol/L Carbon Dioxide 28 (21-32) mmol/L Anion Gap 5.0 (3-11) BUN 16 (7-18) mg/dl Creatinine 0.70 (0.6-1.2) mg/dl Est Cr Clr Drug Dosing 100.6 ml/min Est GFR ( Amer) 104.6 Est GFR (Non-Af Amer) 90.3 BUN/Creatinine Ratio 23.3 H (10-20) Glucose 106 H (70-99) mg/dl POC Glucose 121 H (70-99) mg/dl Calcium 8.6 (8.5-10.1) mg/dl Magnesium 2.3 (1.8-2.4) mg/dl COVID-19 Eval Order Hepatitis C Ab Screen (Neg) SARS-CoV-2, RNA, NAAT (NEGATIVE) 12/25/19 12/25/19 12/25/19 Range/Units Unknown Unknown 20:11 WBC (4.8-10.8) K/uL RBC (4.2-5.4) M/uL Hgb (12.0-16.0) g/dL Hct (37-47) % MCV (80-100) fL MCH (25-34) pg MCHC (32-36) g/dL RDW Std Deviation (36.4-46.3) fL RDW Coeff of Da (11.5-14.5) % Plt Count (130-400) K/uL MPV (7.4-10.4) fL Sodium (136-145) mmol/L Potassium (3.5-5.1) mmol/L Chloride (98-107) mmol/L Carbon Dioxide (21-32) mmol/L Anion Gap (3-11) BUN (7-18) mg/dl Creatinine (0.6-1.2) mg/dl Est Cr Clr Drug Dosing ml/min Est GFR ( Amer) Est GFR (Non-Af Amer) BUN/Creatinine Ratio (10-20) Glucose (70-99) mg/dl POC Glucose 131 H (70-99) mg/dl Calcium (8.5-10.1) mg/dl Magnesium (1.8-2.4) mg/dl COVID-19 [facility] Ab Screen (Neg) SARS-CoV-2, RNA, NAAT NEGATIVE (NEGATIVE) 12/25/19 12/25/19 12/25/19 Range/Units 16:14 11:19 06:57 WBC (4.8-10.8) K/uL RBC (4.2-5.4) M/uL Hgb (12.0-16.0) g/dL Hct (37-47) % MCV (80-100) fL MCH (25-34) pg MCHC (32-36) g/dL RDW Std Deviation (36.4-46.3) fL RDW Coeff of Da (11.5-14.5) % Plt Count (130-400) K/uL MPV (7.4-10.4) fL Sodium (136-145) mmol/L Potassium (3.5-5.1) mmol/L Chloride (98-107) mmol/L Carbon Dioxide (21-32) mmol/L Anion Gap (3-11) BUN (7-18) mg/dl Creatinine (0.6-1.2) mg/dl Est Cr Clr Drug Dosing ml/min Est GFR ( Amer) Est GFR (Non-Af Amer) BUN/Creatinine Ratio (10-20) Glucose (70-99) mg/dl POC Glucose 98 125 H (70-99) mg/dl Calcium (8.5-10.1) mg/dl Magnesium 2.2 (1.8-2.4) mg/dl COVID-19 Eval Order Hepatitis C Ab Screen (Neg) SARS-CoV-2, RNA, NAAT (NEGATIVE) 12/25/19 Range/Units 06:57 WBC (4.8-10.8) K/uL RBC (4.2-5.4) M/uL Hgb (12.0-16.0) g/dL Hct (37-47) % MCV (80-100) fL MCH (25-34) pg MCHC (32-36) g/dL RDW Std Deviation (36.4-46.3) fL RDW Coeff of Da (11.5-14.5) % Plt Count (130-400) K/uL MPV (7.4-10.4) fL Sodium (136-145) mmol/L Potassium (3.5-5.1) mmol/L Chloride (98-107) mmol/L Carbon Dioxide (21-32) mmol/L Anion Gap (3-11) BUN (7-18) mg/dl Creatinine (0.6-1.2) mg/dl Est Cr Clr Drug Dosing ml/min Est GFR ( Amer) Est GFR (Non-Af Amer) BUN/Creatinine Ratio (10-20) Glucose (70-99) mg/dl POC Glucose (70-99) mg/dl Calcium (8.5-10.1) mg/dl Magnesium (1.8-2.4) mg/dl COVID-19 Eval Order Hepatitis C Ab Screen Neg (Neg) SARS-CoV-2, RNA, NAAT (NEGATIVE) Medications Administered Current Inpatient Medications Acetaminophen (Acetaminophen 325 Mg Tab) 650 mg PO Q4H PRN PRN Reason: Pain or Fever Stop: 01/23/20 17:31 Atorvastatin Calcium (Atorvastatin 40 Mg Tab) 40 mg PO DAILY [facility] Stop: 01/24/20 08:59 Last Admin: 12/26/19 08:04 Dose: 40 mg Documented by: Dextrose (Dextrose 50% 50 Ml Syringe) 25 - 50 ml IV UD PRN; Protocol PRN Reason: Hypoglycemia Protocol Stop: 01/23/20 17:31 Diltiazem HCl (Diltiazem Hcl 120 Mg Capcr) 120 mg PO DAILY [facility] Stop: 01/24/20 08:59 Last Admin: 12/26/19 08:04 Dose: 120 mg Documented by: Dofetilide (Dofetilide 125 Mcg Capsule) 250 mcg PO BID@0800,1800 [facility] Stop: 01/24/20 07:59 Last Admin: 12/26/19 08:04 Dose: 250 mcg Documented by: Glucagon (Glucagon For Inj 1 Mg Vial) 1 mg SQ UD PRN; Protocol PRN Reason: Hypoglycemia Protocol Stop: 01/23/20 17:31 Glucose (Glucose 10 Tabs/Tube) 4 - 8 tabs PO UD PRN; Protocol PRN Reason: Hypoglycemia Protocol Stop: 01/23/20 17:31 Glucose (Glucose 40% Gel 15 Gm Tube) 15 - 30 gm PO UD PRN; Protocol PRN Reason: Hypoglycemia Protocol Stop: 01/23/20 17:31 Insulin Aspart (Insulin Aspart 100 Units/Ml 3 Ml Pen) 0 units SC ACHS [facility] Stop: 01/23/20 17:31 Last Admin: 12/26/19 08:01 Dose: 2 units Documented by: Losartan Potassium (Losartan Potassium 25 Mg Tab) 25 mg PO HS [facility] Stop: 01/24/20 20:59 Last Admin: 12/25/19 20:45 Dose: 25 mg Documented by: Metoprolol Tartrate (Metoprolol Tartrate 50 Mg Tab) 50 mg PO BID [facility] Stop: 01/23/20 20:59 Last Admin: 12/26/19 08:03 Dose: 50 mg Documented by: Miscellaneous (Carbohydrates For Hypoglycemia ) 15 - 30 gm PO UD PRN PRN Reason: Hypoglycemia Protocol Stop: 01/23/20 17:31 Rivaroxaban (Rivaroxaban 20 Mg Tab) 20 mg PO QDB [facility] Stop: 01/24/20 07:29 Last Admin: 12/26/19 08:03 Dose: 20 mg Documented by: (1) Atrial fibrillation Atrial fibrillation type: unspecified Qualified Code(s): I48.91 - Unspecified atrial fibrillation
--- NOTE | 2019-12-26 11:22 | Electrocardiogram Report ---
Test Reason : Blood Pressure : / mmHG Vent. Rate : 059 BPM Atrial Rate : 059 BPM P-R Int : 138 ms QRS Dur : 084 ms QT Int : 432 ms P-R-T Axes : -76 062 -07 degrees QTc Int : 427 ms Probable Ectopic atrial rhythm Nonspecific T wave abnormality Inferior leads Abnormal ECG When compared with ECG of 25-DEC-2019 14:56, No significant change Confirmed by Ata Davis ([id number]) on 12/26/2019 11:22:31 AM Referred By: REFERRED SELF Confirmed By:Ata Davis
--- NOTE | 2019-12-26 13:02 | Communication Note ---
Date of Service: December 26, 2019 Chart reviewed from [facility] site. Pt in Sinus rhythm (ectopic atrial rhythm) on post dofetilide EKG performed this morning. QT interval acceptable. Anticipate discharge tomorrow after sixth dose of dofetilide, on 250 micrograms twice daily. I [facility] They do not have the medication in stock and are not able to order it by tomorrow. [facility] has the medication in stock and I therefore sent an electronic order there. Will need to make sure patient picks up medication from [facility].
--- NOTE | 2019-12-26 14:32 | Cardiology Progress Note ---
Date of Service December 26, 2019 Assessment & Plan (1) Paroxysmal atrial fibrillation: (2) Chronic diastolic HF (heart failure): (3) History of cardiac radiofrequency ablation: (4) Diabetes mellitus type 2, uncontrolled: Continue Tikosyn 250 mcg twice daily. Repeat ECG approximately 2 to 3 hours after each dose. If QTc increases more than 15%, decrease dose to 125 mcg BID, otherwise continue 250 mcg twice daily. If QTc increases greater than 500 ms, dofetilide must be discontinued. Continue anticoagulation with Xarelto. Discontinue diltiazem. Discharge in 24 hours after sixth dose of Tikosyn and repeat ECG. Admission and Anticipated Discharge Date Admission Date: December 24, 2019 Subjective Patient seen and examined the bedside. Converted to normal sinus rhythm. Telemetry demonstrates periods of sinus bradycardia. Denies lightheaded, dizziness, or palpitations. Offers no other concerns/complaints this time. Review of Systems Review of Systems: All systems reviewed & are unremarkable except as noted in HPI & below Physical Exam Constitutional: well developed, well nourished and + obese; no acute distress Respiratory: normal respiratory effort, lungs clear to auscultation Auscultation: no diminished lung sounds, no crackles, no rales, no rhonchi and no wheezes Cardiovascular: Rate/Rhythm: regular rate and + bradycardic Heart Sounds: normal S1 and normal S2; no murmur and no cardiac rub Vessels: radial pulses present; no JVD and no carotid bruit Extremities: + edema (Trace bilateral pedal edema) Gastrointestinal (Abdomen): Inspection/Auscultation: abdomen normal to inspection and normal bowel sounds; abdomen not distended Percussion/Palpation: abdomen soft; abdomen nontender, no guarding and abdomen not rigid Skin: no rashes, warm and dry Neurologic: CN's II-XI intact bilaterally; + does not move all extremities and no focal motor deficits Psychiatric: A+Ox3, euthymic affect Results & Data ([facility]) Vital Signs (Past 12 Hours) Vital Signs Temp Pulse Pulse Resp BP BP Pulse Ox 12/26/19 10:59 36.4 C L 59 L 20 134/75 95 12/26/19 08:05 36.9 C 64 18 118/60 99 12/26/19 07:30 56 L 12/26/19 03:00 36.4 C L 67 16 117/69 93
[2019-12-26] MEDS: LOSARTAN POTASSIUM 25 MG TAB PO SCH (20:44)
[2019-12-27 08:00] LABS: BUN Creatinine Ratio 21.8 (10-20); Calcium 8.6 mg/dl (8.5-10.1); Creatinine Clr Calc Pharmacy 102.1 ml/min; Est GFR (African American) 105.1; Est GFR (Non-African American) 90.7; Magnesium 2.3 mg/dl (1.8-2.4); Potassium 3.8 mmol/L (3.5-5.1)
--- NOTE | 2019-12-27 08:29 | Hospitalist Progress Note ---
Date of Service December 27, 2019 Assessment & Plan (1) Atrial fibrillation: -Patient with a longstanding history of refractory atrial fibrillation. Previously treated with ablation, cardioversion, sotalol therapy. -Most recent cardioversion on 12/18, unsuccessful. Sotalol discontinued for washout in anticipation of dofetilide therapy. Patient also started on metoprolol. -In the ED, patient remained in atrial fibrillation with rates in the 70s to 80s -Cardiology consult, starting dofetilide (Tikosyn) therapy -Patient converted to normal sinus rhythm early afternoon on (12/24) -Anticoagulated on Xarelto, will continue -discuss further need for metoprolol and diltiazem for rate control w/ cardiology -Discontinue diltiazem -Tikosyn 250 mg twice a day prescription sent to pharmacy -[facility] pharmacy, patient is aware (2) Coronary artery disease: -Appears stable, no reports of chest pain -Continue statin, beta-geovanna (3) Diabetes mellitus type 2, uncontrolled: -Hgb A1c 6.4 08/2019 -Hold oral agents and utilize NovoLog per protocol while hospitalized (4) Chronic diastolic HF (heart failure): -Appears euvolemic -Utilizes furosemide on a as needed basis (5) Hypertension: -BP controlled, continue metoprolol, losartan -Diltiazem stopped (6) DVT prophylaxis: -Anticoagulated on Xarelto Admission and Anticipated Discharge Date Admission Date: December 24, 2019 Subjective Pt is currently sitting up in a chair, in no acute distress. She feels well, denies any palpitations, chest pain, shortness of breath. Also denies any dizziness or lightheadedness. She has been in sinus rhythm. Had 2 brief salvos of atrial tachycardia recorded without associated symptoms. EKG repeated this morning, shows sinus bradycardia, with normal QT interval. Telemetry and EKG reviewed by cardiology. Diltiazem discontinued this a.m. Patient's new medication Tikosyn was sent to [facility] pharmacy, patient is aware. Review of Systems Review of Systems: All systems reviewed & are unremarkable except as noted in HPI & below Constitutional: no fever and no chills Respiratory: no cough and no dyspnea Cardiovascular: no chest pain and no palpitations Gastrointestinal: no abdominal pain, no nausea and no vomiting Physical Exam Physical Exam: Constitutional: WD/WN, vitals as above + obese Eyes: PERRL, EOMI, conjunctivae normal, anicteric sclerae ENMT: external ear and nose normal, oropharynx normal Respiratory: normal respiratory effort, lungs clear to auscultation Cardiovascular: Rate/Rhythm: +bradycardic Vessels: normal peripheral pulses Extremities: no edema Gastrointestinal (Abdomen): normal bowel sounds, soft, nontender, nondistended Musculoskeletal: no cyanosis or clubbing, extremities motor strength 5/5 Skin: no rashes, warm and dry Neurologic: PERRL, EOMI, no face palsy, no dysarthria, moves all 4 extremities spontaneously Psychiatric: A+Ox3, euthymic affect Results & Data Results & Data ([facility]) Vital Signs (Past 12 Hours) Vital Signs Temp Pulse Pulse Resp BP Pulse Ox 12/27/19 07:55 36.3 C L 60 19 146/80 H 93 12/27/19 03:48 36.6 C 61 19 131/77 94 12/26/19 23:21 36.4 C L 53 L 18 143/82 H 94 Laboratory Results 12/27/19 12/27/19 12/26/19 Range/Units 07:36 07:00 20:35 Sodium 140 (136-145) mmol/L Potassium 3.8 (3.5-5.1) mmol/L Chloride 108 H (98-107) mmol/L Carbon Dioxide 28 (21-32) mmol/L Anion Gap 4.0 (3-11) BUN 15 (7-18) mg/dl Creatinine 0.69 (0.6-1.2) mg/dl Est Cr Clr Drug Dosing 102.1 ml/min Est GFR ( Amer) 105.1 Est GFR (Non-Af Amer) 90.7 BUN/Creatinine Ratio 21.8 H (10-20) Glucose 110 H (70-99) mg/dl POC Glucose 113 H 128 H (70-99) mg/dl Calcium 8.6 (8.5-10.1) mg/dl Magnesium 2.3 (1.8-2.4) mg/dl 12/26/19 12/26/19 Range/Units 16:20 11:20 Sodium (136-145) mmol/L Potassium (3.5-5.1) mmol/L Chloride (98-107) mmol/L Carbon Dioxide (21-32) mmol/L Anion Gap (3-11) BUN (7-18) mg/dl Creatinine (0.6-1.2) mg/dl Est Cr Clr Drug Dosing ml/min Est GFR ( Amer) Est GFR (Non-Af Amer) BUN/Creatinine Ratio (10-20) Glucose (70-99) mg/dl POC Glucose 87 129 H (70-99) mg/dl Calcium (8.5-10.1) mg/dl Magnesium (1.8-2.4) mg/dl Medications Administered Current Inpatient Medications Acetaminophen (Acetaminophen 325 Mg Tab) 650 mg PO Q4H PRN PRN Reason: Pain or Fever Stop: 01/23/20 17:31 Atorvastatin Calcium (Atorvastatin 40 Mg Tab) 40 mg PO DAILY [facility] Stop: 01/24/20 08:59 Last Admin: 12/26/19 08:04 Dose: 40 mg Documented by: Dextrose (Dextrose 50% 50 Ml Syringe) 25 - 50 ml IV UD PRN; Protocol PRN Reason: Hypoglycemia Protocol Stop: 01/23/20 17:31 Dofetilide (Dofetilide 125 Mcg Capsule) 250 mcg PO BID@0800,1800 [facility] Stop: 01/24/20 07:59 Last Admin: 12/26/19 17:59 Dose: 250 mcg Documented by: Glucagon (Glucagon For Inj 1 Mg Vial) 1 mg SQ UD PRN; Protocol PRN Reason: Hypoglycemia Protocol Stop: 01/23/20 17:31 Glucose (Glucose 10 Tabs/Tube) 4 - 8 tabs PO UD PRN; Protocol PRN Reason: Hypoglycemia Protocol Stop: 01/23/20 17:31 Glucose (Glucose 40% Gel 15 Gm Tube) 15 - 30 gm PO UD PRN; Protocol PRN Reason: Hypoglycemia Protocol Stop: 01/23/20 17:31 Insulin Aspart (Insulin Aspart 100 Units/Ml 3 Ml Pen) 0 units SC ACHS [facility] Stop: 01/23/20 17:31 Last Admin: 12/26/19 20:44 Dose: Not Given Documented by: Losartan Potassium (Losartan Potassium 25 Mg Tab) 25 mg PO HS [facility] Stop: 01/24/20 20:59 Last Admin: 12/26/19 20:44 Dose: 25 mg Documented by: Metoprolol Tartrate (Metoprolol Tartrate 50 Mg Tab) 50 mg PO BID [facility] Stop: 01/23/20 20:59 Last Admin: 12/26/19 20:44 Dose: 50 mg Documented by: Miscellaneous (Carbohydrates For Hypoglycemia ) 15 - 30 gm PO UD PRN PRN Reason: Hypoglycemia Protocol Stop: 01/23/20 17:31 Rivaroxaban (Rivaroxaban 20 Mg Tab) 20 mg PO QDB [facility] Stop: 01/24/20 07:29 Last Admin: 12/26/19 08:03 Dose: 20 mg Documented by: (1) Atrial fibrillation Atrial fibrillation type: unspecified Qualified Code(s): I48.91 - Unspecified atrial fibrillation
[2019-12-27] MEDS: INSULIN ASPART 100 UNITS/ML 3 ML PEN SC SCH (08:36)
[2019-12-27] MEDS: METOPROLOL TARTRATE 50 MG TAB PO SCH (08:37)
[2019-12-27] MEDS: ATORVASTATIN 40 MG TAB PO SCH (08:38)
[2019-12-27] MEDS: RIVAROXABAN 20 MG TAB PO SCH (08:38)
[2019-12-27] MEDS: DOFETILIDE 125 MCG CAPSULE PO SCH (08:38)
--- NOTE | 2019-12-27 08:41 | Electrocardiogram Report ---
Test Reason : Blood Pressure : / mmHG Vent. Rate : 062 BPM Atrial Rate : 062 BPM P-R Int : 154 ms QRS Dur : 088 ms QT Int : 450 ms P-R-T Axes : 064 052 007 degrees QTc Int : 456 ms Normal sinus rhythm Nonspecific T wave abnormality Inferior leads Abnormal ECG When compared with ECG of 26-DEC-2019 09:58, Sinus rhythm has replaced Ectopic atrial rhythm Confirmed by Ata Davis ([id number]) on 12/27/2019 8:41:42 AM Referred By: REFERRED SELF Confirmed By:Ata Davis
--- NOTE | 2019-12-27 10:40 | Cardiology Progress Note ---
Date of Service December 27, 2019 Assessment & Plan (1) Paroxysmal atrial fibrillation: (2) Chronic diastolic HF (heart failure): (3) History of cardiac radiofrequency ablation: (4) Diabetes mellitus type 2, uncontrolled: Continue Tikosyn 250 mcg twice daily. Prescription sent to [facility] pharmacy. Diltiazem discontinued. Continue metoprolol tartrate 50 mg twice daily and Xarelto for anticoagulation. Outpatient cardiology follow-up in 1 to 2 weeks. Patient may be discharged home today. Admission and Anticipated Discharge Date Admission Date: December 24, 2019 Subjective Patient seen and examined at the bedside. Remains in sinus rhythm overnight. 2 brief salvos of atrial tachycardia recorded without associated symptoms. Dilt iazem discontinued this a.m. Repeat ECG demonstrates sinus bradycardia with normal QT interval. Patient offers no complaints. Review of Systems Review of Systems: All systems reviewed & are unremarkable except as noted in HPI & below Physical Exam Constitutional: well developed, well nourished and + obese; no acute distress Respiratory: normal respiratory effort, lungs clear to auscultation Auscultation: no diminished lung sounds, no crackles, no rales, no rhonchi and no wheezes Cardiovascular: Rate/Rhythm: regular rate and + bradycardic Heart Sounds: normal S1 and normal S2; no murmur and no cardiac rub Vessels: radial pulses present; no JVD and no carotid bruit Extremities: no edema Gastrointestinal (Abdomen): Inspection/Auscultation: abdomen normal to inspection and normal bowel sounds; abdomen not distended Percussion/Palpation: abdomen soft; abdomen nontender, no guarding and abdomen not rigid Skin: no rashes, warm and dry Neurologic: CN's II-XI intact bilaterally; + does not move all extremities and no focal motor deficits Psychiatric: A+Ox3, euthymic affect Results & Data ([facility]) Vital Signs (Past 12 Hours) Vital Signs Temp Pulse Pulse Resp BP Pulse Ox 12/27/19 07:55 36.3 C L 60 19 146/80 H 93 12/27/19 03:48 36.6 C 61 19 131/77 94 12/26/19 23:21 36.4 C L 53 L 18 143/82 H 94
--- NOTE | 2019-12-27 11:04 | Electrocardiogram Report ---
Test Reason : Blood Pressure : / mmHG Vent. Rate : 057 BPM Atrial Rate : 057 BPM P-R Int : 150 ms QRS Dur : 086 ms QT Int : 440 ms P-R-T Axes : 078 052 017 degrees QTc Int : 428 ms Sinus bradycardia Otherwise normal ECG When compared with ECG of 26-DEC-2019 20:31, No significant change was found Confirmed by Ata Davis ([id number]) on 12/27/2019 11:03:29 AM Referred By: REFERRED SELF Confirmed By:Ata Davis
--- NOTE | 2019-12-27 12:04 | Discharge Summary ---
Date of Service December 27, 2019 Admission HPI Per Admitting Provider 64-year-old female with PMH DM type II, paroxysmal atrial fibrillation, HTN, CAD, and other problems to below who was initially referred for direct admission for initiation of dofetilide therapy, however due to limited bed availability, patient was sent to the ED. Patient has a longstanding history of atrial fibrillation s/p ablation and cardioversion in the past. Patient also had been on sotalol therapy. On 12/18, patient underwent attempted cardioversion x3 shocks which were unsuccessful and patient remained in atrial fibrillation. It was determined that patient would stop sotalol for a washout and she was placed on metoprolol tartrate 50 mg twice daily. Patient presents today for admission for initiation of dofetilide therapy. Patient reports she can feel her heart racing and also feels fatigued whenever she is in atrial fibrillation. She denies chest pain or shortness of breath. No lightheadedness, dizziness, diaphoresis, syncopal events. Denies orthopnea lower extremity edema. No other recent illnesses, fevers, chills. She denies abdominal pain, nausea, vomiting, diarrhea. No urinary symptoms. In the ED, EKG demonstrated atrial fibrillation rate of 76. BP is stable. Labs are unremarkable. Admission Exam Per Admitting Provider Constitutional: WD/WN, vitals as above + obese Eyes: PERRL, conjunctivae normal, anicteric sclerae ENMT: external ear and nose normal, oropharynx normal Respiratory: normal respiratory effort, lungs clear to auscultation Cardiovascular: Rate/Rhythm: regular rate and + irregularly irregular Vessels: normal peripheral pulses Extremities: no edema Gastrointestinal (Abdomen): normal bowel sounds, soft, nontender, no hepatosplenomegaly Musculoskeletal: no cyanosis or clubbing, extremities motor strength 5/5 Skin: no rashes, warm and dry Neurologic: PERRL, EOMI, accommodation nl, no face palsy, no dysarthria Psychiatric: A+Ox3, euthymic affect Principal Diagnosis Atrial fibrillation, status post initiation with Tikosyn Discharge Exam Constitutional: WD/WN, vitals as above + obese Eyes: PERRL, EOMI, conjunctivae normal, anicteric sclerae ENMT: external ear and nose normal, oropharynx normal Respiratory: normal respiratory effort, lungs clear to auscultation Cardiovascular: Rate/Rhythm: +bradycardic Vessels: normal peripheral pulses Extremities: no edema Gastrointestinal (Abdomen): normal bowel sounds, soft, nontender, nondistended Musculoskeletal: no cyanosis or clubbing, extremities motor strength 5/5 Skin: no rashes, warm and dry Neurologic: PERRL, EOMI, no face palsy, no dysarthria, moves all 4 extremities spontaneously Psychiatric: A+Ox3, euthymic affect Discharge Data Allergies Allergy/AdvReac Type Severity Reaction Status Date / Time codeine Allergy Unknown Unknown, Verified 12/24/19 15:35 reaction as child Consultations 12/24/19 14:20 Consult Cardiology Stat 12/24/19 14:21 ED Decision to Admit Stat 12/24/19 14:38 Consult Cardiology Routine Hospital Course (1) Atrial fibrillation: -Patient with a longstanding history of refractory atrial fibrillation. Previously treated with ablation, cardioversion, sotalol therapy. -Most recent cardioversion on 12/18, unsuccessful. Sotalol discontinued for washout in anticipation of dofetilide therapy. Patient also started on metoprolol. -In the ED, patient remained in atrial fibrillation with rates in the 70s to 80s -Cardiology consult, starting dofetilide (Tikosyn) therapy -Patient converted to normal sinus rhythm early afternoon on (12/24) -Anticoagulated on Xarelto, will continue -discuss further need for metoprolol and diltiazem for rate control w/ cardiology -Discontinue diltiazem -Tikosyn 250 mg twice a day prescription sent to pharmacy -[facility] pharmacy, patient is aware (2) Coronary artery disease: -Appears stable, no reports of chest pain -Continue statin, beta-geovanna (3) Diabetes mellitus type 2, uncontrolled: -Hgb A1c 6.4 08/2019 -Hold oral agents and utilize NovoLog per protocol while hospitalized (4) Chronic diastolic HF (heart failure): -Appears euvolemic -Utilizes furosemide on a as needed basis (5) Hypertension: -BP controlled, continue metoprolol, losartan -Diltiazem stopped (6) DVT prophylaxis: -Anticoagulated on Xarelto Total Time Total Time Spent Total Time Spent (In Minutes): 40 Total Time Includes: Examination of the Patient, Discharge Planning, Medication Reconciliation and Communication With Other Providers Discharge Plan Discharge Items Patient Disposition: Home - Self-Care Reason For Visit: A. FIB Discharge Diagnosis: Atrial fibrillation, status post initiation with Tikosyn Activity: Per Instructions section Non-emergency contact: Primary Care Provider and Integrated Program Teacher Call non-emergency contact if: you have any medication questions and your symptoms worsen Follow-up/Referrals: Bettie Begum PA-C [Primary Care Provider] - (Date & Time 12/31/2019 10:20 AM Provider Bettie Begum PA-C Department [facility] ) Diet: Carb Consistent or DM2 and Heart Healthy Addtl Attending Provider Instructions: Follow-up with your primary care doctor, appointment was scheduled for you for December 30. New medication, Tikosyn, was sent to [facility] pharmacy. Take Tikosyn 250 mg twice a day. Continue to take metoprolol as prescribed. STOP taking diltiazem. Continue taking Xarelto as prescribed. You will need to follow-up with cardiology in the next 1 to 2 weeks, appointment will be scheduled for you and you will be contacted. Pending Studies at Discharge: No Stand-Alone Forms: [facility], Smoking Cessation Medications and DC Order Prescriptions: New dofetilide [Tikosyn] 125 mcg Capsule 250 mcg PO BID@0800,1800 30 Days RF: 0 Continued multivitamin Tablet 1 tab PO QAM RF: 0 atorvastatin 40 mg tablet 40 mg PO DAILY RF: 0 calcium carbonate-vitamin D3 [Calcium 500 + D] 500 mg(1,250mg) -200 unit Tablet 1 tab PO BID RF: 0 Xarelto 20 mg tablet 20 mg PO DAILY RF: 0 magnesium oxide 400 mg magnesium Tablet 400 mg PO 3XWK RF: 0 turmeric root extract 500 mg Capsule 500 mg PO DAILY RF: 0 losartan 25 mg Tablet 25 mg PO DAILY RF: 0 furosemide [Lasix] 20 mg Tablet 20 mg PO DAILY PRN (Reason: Edema) RF: 0 metformin 500 mg tablet 500 mg PO BID Qty: 60 RF: 5 (DME) Accu-Chek Guide test strips strip See Dose Instructions .ROUTE .MEDSUPPLY Qty: 50 RF: 5 (DME) lancets 25 gauge misc See Dose Instructions .ROUTE .MEDSUPPLY Qty: 100 RF: 5 (DME) lancets [Accu-Chek Fastclix Lancet Drum] misc See Dose Instructions .ROUTE .MEDSUPPLY Qty: 50 RF: 5 (DME) lancets [Accu-Chek Fastclix Lancet Drum] misc See Dose Instructions .ROUTE .MEDSUPPLY Qty: 50 RF: 5 (DME) lancing device with lancets [Accu-Chek FastClix Lancing Dev] kit See Dose Instructions .ROUTE .MEDSUPPLY Qty: 50 RF: 5 (DME) lancets [Accu-Chek Fastclix Lancet Drum] misc See Dose Instructions .ROUTE .MEDSUPPLY Qty: 100 RF: 5 (DME) lancets [Accu-Chek Fastclix Lancet Drum] misc See Dose Instructions .ROUTE .MEDSUPPLY Qty: 50 RF: 0 metoprolol tartrate 50 mg tablet 50 mg PO BID Qty: 60 RF: 0 Discontinued diltiazem HCl 120 mg capsule,ext.rel 24h degradable 120 mg PO DAILY Qty: 30 RF: 5 Discharge Orders: Discharge Order (Routine); Ordered 12/27/19 Ordered By: Jesus Larkin/Other Patient Handouts: Managing Type 2 Diabetes Admission Data Admit Date/Time: 12/24/19 14:38 Attending Provider: Jesus Grier Admit Provider: Bal Pham Primary Care Provider: Bettie Begum Other Providers: Joel Lockhart Gary Other Interventions: Discharge Summary Assessment (RN) Last Done: 12/27/19 11:55
== END 2019-12-27 12:33 | disposition home or self-care (01) | DRG 309 ==
LOC: ED 13:08 → SUATTDRO 14:38 → 2S 14:38

== ENCOUNTER 2022-01-12 06:18 | Observation (INO) ==
--- NOTE | 2021-12-06 15:19 | PAT Medication Instructions ---
Medication Instructions Date of Service December 06, 2021 Home Medications Medication Instructions Recorded blood sugar diagnostic (Accu-Chek #50 11/08/18 Guide test strips) lancets (Accu-Chek Fastclix Lancet #100 ea 11/08/18 Drum) lancets (Accu-Chek Fastclix Lancet #50 ea 11/08/18 Drum) lancets (Accu-Chek Fastclix Lancet #50 ea 11/08/18 Drum) lancets (Accu-Chek Fastclix Lancet #50 ea 11/08/18 Drum) lancets 25 gauge #100 11/08/18 lancing device with lancets kit #50 11/08/18 (Accu-Chek FastClix Lancing Device kit) metformin 500 mg tablet 500 mg PO BID #60 tabs 11/08/18 metoprolol tartrate 50 mg tablet 50 mg PO BID #60 tabs 12/19/19 atorvastatin 40 mg tablet 40 mg PO QAM calcium carbonate 500 mg-vitamin D3 5 mcg (200 unit) tablet (Calcium 500 + D) 1 tab PO BID magnesium oxide 400 mg PO 3XWK multivitamin 1 tab PO QAM rivaroxaban 20 mg tablet (Xarelto) 20 mg PO QAM furosemide 20 mg tablet (Lasix) 20 mg PO DAILY PRN losartan 25 mg tablet 50 mg PO PM blood sugar diagnostic (Accu-Chek Guide test strips) lancets (Accu-Chek Fastclix Lancet Drum) lancets (Accu-Chek Fastclix Lancet Drum) lancets (Accu-Chek Fastclix Lancet Drum) lancets (Accu-Chek Fastclix Lancet Drum) lancets 25 gauge lancing device with lancets kit (Accu-Chek FastClix Lancing Device kit) metformin 500 mg tablet 500 mg PO BID metoprolol tartrate 50 mg tablet 50 mg PO BID turmeric root extract 500 mg capsule 500 mg PO QAM coenzyme Q10 200 mg capsule (Co Q-10) 200 mg PO QAM dofetilide 250 mcg capsule (Tikosyn) 250 mcg PO Q12H ASK your prescriber and surgeon rivaroxaban 20 mg tablet (Xarelto) 20 mg PO QAM(in order for spinal or epidural anesthesia, Xarelto needs to be stopped 72 hours/3 days before surgery. Please check if okay with doctor that prescribes this to you) STOP taking 2 weeks before surgery turmeric root extract 500 mg capsule 500 mg PO QAM coenzyme Q10 200 mg capsule (Co Q-10) 200 mg PO QAM DO NOT take the morning of surgery calcium carbonate 500 mg-vitamin D3 5 mcg (200 unit) tablet (Calcium 500 + D) 1 tab PO BID magnesium oxide 400 mg PO 3XWK multivitamin 1 tab PO QAM furosemide 20 mg tablet (Lasix) 20 mg PO DAILY PRN Take morning of surgery With a small sip of water, OTHERWISE NOTHING TO EAT OR DRINK AFTER MIDNIGHT: atorvastatin 40 mg tablet 40 mg PO QAM metformin 500 mg tablet 500 mg PO BID metoprolol tartrate 50 mg tablet 50 mg PO BID dofetilide 250 mcg capsule (Tikosyn) 250 mcg PO Q12H Take evening before surgery calcium carbonate 500 mg-vitamin D3 5 mcg (200 unit) tablet (Calcium 500 + D) 1 tab PO BID losartan 25 mg tablet 50 mg PO PM metformin 500 mg tablet 500 mg PO BID metoprolol tartrate 50 mg tablet 50 mg PO BID dofetilide 250 mcg capsule (Tikosyn) 250 mcg PO Q12H Other Notes If you have any questions please call us at [phone] or [phone] or [phone] or [phone]
--- NOTE | 2021-12-09 12:42 | Anesthesiology Consultation ---
Date of Service December 09, 2021 Assessment & Plan (1) Encounter for pre-operative examination: - Cardiology office visit (11/10/21): "She has a history of symptomatic recurrent atrial arrhythmias including atrial fibrillation and atrial flutter. She had undergone pulmonary vein isolation procedure as well as cavil tricuspid isthmus ablation.. 03/25/2014.. In the fall 2019 she had a recurrent episode prompting transition from sotalol to dofetilide with follow-up need for cardioversion.. Most recently in May, she had been seen as an outpatient with recurrent atrial fibrillation. Pending repeat direct current cardioversion, her metoprolol dose was increased, with subsequent conversion back to sinus rhythm.. She notes no significant breakthrough events.. Pending a change in her stable cardiac status, would recommend proceeding.. knee replacement without further cardiac testing with an estimated low risk of perioperative cardiac complication ." - COVID screening: Per assessment on 12/09: No known COVID-19 positive contacts or current COVID-19 related symptoms. Travel screen negative 2+ weeks. Patient vaccinated. At surgeon discretion if preop Covid testing being done. - Check BSG AM DOS - Outpatient joint assessment: Pt currently scheduled for inpatient pathway. If surgeon requests review for outpatient joint pathway, patient is not recommended candidate for outpatient joint program from anesthesia standpoint. - Xarelto instructions: patient made aware that in order for spinal anesthesia, Xarelto needs to be held 72 hours/3 days prior to surgery. Patient voiced understanding/will check if okay with prescriber. Chart Review Chart Review: Acceptable Risk for Surgery and Patient seen in Pre Admission Testing Teaching & Discussion Pre-Anesthesia Teaching/Discussion Notes: Instructed NPO after midnight before surgery,except medications with 15 cc of water. Medication instructions provided according to the PAT guidelines. History Surgery Operation Date: 01/12/22 09:10 Proposed Procedures p Right Total Knee Arthroplasty - Neno Ambriz MD Height/Weight Height: 5 ft 4 in Weight: 122.6 kg Allergies Allergy/AdvReac Type Severity Reaction Status Date / Time codeine Allergy Unknown Unknown, Verified 12/03/21 10:41 reaction as child Medications Home Medications Medication Instructions Recorded Confirmed Last Taken atorvastatin 40 mg tablet 40 mg PO QAM 08/27/18 12/03/21 12/24/19 08:00 calcium carbonate 500 mg-vitamin 1 tab PO BID 08/27/18 12/03/21 08/27/18 D3 5 mcg (200 unit) tablet (Calcium 500 + D) magnesium oxide 400 mg PO 3XWK 08/27/18 12/03/21 08/27/18 multivitamin 1 tab PO QAM 08/27/18 12/03/21 12/24/19 08:00 rivaroxaban 20 mg tablet (Xarelto) 20 mg PO QAM 08/27/18 12/03/21 12/24/19 08:00 furosemide 20 mg tablet (Lasix) 20 mg PO DAILY PRN Edema 11/05/18 12/03/21 11/02/18 losartan 25 mg tablet 50 mg PO PM 11/05/18 12/03/21 12/24/19 08:00 blood sugar diagnostic (Accu-Chek #50 ea 11/08/18 12/03/21 Unknown Guide test strips) lancets (Accu-Chek Fastclix Lancet #100 ea 11/08/18 12/03/21 Unknown Drum) lancets (Accu-Chek Fastclix Lancet #50 ea 11/08/18 12/03/21 Unknown Drum) lancets (Accu-Chek Fastclix Lancet #50 ea 11/08/18 12/03/21 Unknown Drum) lancets (Accu-Chek Fastclix Lancet #50 ea 11/08/18 12/03/21 Unknown Drum) lancets 25 gauge #100 ea 11/08/18 12/03/21 Unknown lancing device with lancets kit #50 ea 11/08/18 12/03/21 Unknown (Accu-Chek FastClix Lancing Device kit) metformin 500 mg tablet 500 mg PO BID #60 tabs 11/08/18 12/03/21 12/24/19 08:00 metoprolol tartrate 50 mg tablet 50 mg PO BID #60 tabs 12/19/19 12/03/21 12/24/19 08:00 turmeric root extract 500 mg 500 mg PO QAM 12/24/19 12/03/21 Unknown capsule coenzyme Q10 200 mg capsule (Co 200 mg PO QAM 12/03/21 12/03/21 Unknown Q-10) dofetilide 250 mcg capsule 250 mcg PO Q12H 12/03/21 12/03/21 Unknown (Tikosyn) Past Medical History Medical History Anemia Chronic diastolic HF (heart failure) follows with Dr. Velasquez Coronary artery disease 40% ostial LAD lesion per cath 2016 Degenerative arthritis of knee, bilateral Diabetes mellitus type 2, uncontrolled Dyslipidemia Hypertension Osteoarthritis Paroxysmal atrial fibrillation Skin cancer excised from forehead Sleep apnea CPAP (compliant) SVT (supraventricular tachycardia) Exercise / Class Metabolic Activity II 4-5 Yardwork/Stairs/Walk up hill (one FS (no CP, no SOB)) Past Family History Family History Mother Diabetes Heart disease Past Surgical History Surgical History History of cardiac cath 2015 no stents History of cardiac radiofrequency ablation 2015 > for Afib at [place] History of cataract surgery bilat History of colonoscopy History of tooth extraction Hx of laparoscopy Past Anesthesia History No Hx of Anesthesia Complications and No Family Hx of Anesthesia Complications History of PONV No Hx of PONV and No Hx of Motion Sickness Social History Smoking Status: Never smoker Do You Dip or Chew Tobacco: No Hx Alcohol Use: Yes Alcohol type: wine alcohol intake frequency: a few times a month Hx Substance Use: No substance use type: does not use Review of Systems Patient denies chest pain, shortness of breath, dyspnea on exertion, fever, chills, cough, wheezing, palpitations. Physical Exam Vital Signs VITALS BP 146/77 P 60 TEMP 98.2 SP02 96%RA RESP 18 PHYSICAL Full cervical extension range of motion. Full TMJ range of motion. TMD 3.5 finger breaths Mallampati Score 3 Dentition: missing molars, + caps Lungs: clear throughout to auscultation Cardiac: regular rate and rhythm, no murmurs noted Spine: normal Carotid arteries: negative bruit Extremities: no edema Lab Results Anesthesia Preop Results Results Anesthesia Widget: WBC 7.89 K/ul (4.8-10.8) 12/09/21 Hgb 11.1 g/dl (12.0-16.0) L 12/09/21 Hct 34.9 % (34.1-44.9) 12/09/21 Plt 307 K/uL (130-400) 12/09/21 Na 145 mmol/L (136-145) 12/09/21 K 4.4 mmol/L (3.5-5.1) 12/09/21 Cl 111 mmol/L (98-107) H 12/09/21 CO2 27 mmol/L (21-32) 12/09/21 BUN 14 mg/dl (6-23) 12/09/21 Creat 0.63 mg/dl (0.6-1.2) 12/09/21 Glucose Level 151 mg/dl (70-99(Fasting)) H 12/09/21 PT 14.6 Seconds (9.0-12.0) H 12/09/21 PTT 40.2 Seconds (21.0-31.0) H 12/09/21 INR 1.4 (0.9-1.1) H 12/09/21 HA1c 7.4 % (4.5-5.6) H 12/09/21 Blood Type O Positive 12/09/21 Antibody Screen NEGATIVE 12/09/21 Testing Laboratory Results Elevated coags- pt taking Xarelto* Electrocardiogram Date: 11/10/21 Findings: + NSR @ (60) Chest X-Ray Date: 12/09/21 FINDINGS: Cardiac silhouette is mildly enlarged. Atherosclerosis of the aorta. No pneumothorax, pleural effusion, airspace consolidation or overt pulmonary edema. Degenerative changes of the shoulders and spine. Right shoulder rotator cuff calcific tendinosis. IMPRESSION: No acute process. Echocardiogram Date: 11/06/18 EF 60-65%. No regional motion abnormality. Mild concentric LVH. Moderate AV sclerosis. Mild MR/LAE. Stress Test Date: 07/13/15 Type: exercise Stress echo is borderline positive for inducible ischemia. Exercise capacity is average. Dyspnea noted with stress. Abnormal horizontal/downsloping ST depression of 1-2 mm noted in inferior leads. Occasional PVCs with stress. Mild hypokinesis of the posterior wall at the base. With stress, the inferior and posterior reyes at the base and mid level failed to improve to degree of other segments. LVEF 55-59%. Mild MR moderate TR. Moderate pulmonary hypertension. 92% MPHR. 7.2 METS. Cardiac Catheterization Date: 07/27/15 Diffuse moderate coronary artery irregularities. 40% ostial LAD lesion. The lesion does not correspond to the patient's posterior region ischemia reported on the stress test. And she does not have any angina either. "It would be appropriate for her to be treated with medical therapy for nonobstructive CAD" per report. COVID-19 Risk Screen Screening Information COVID-19 Screen Date: 12/09/21 Exposure 21 Days Family/Household +COVID Last 21 Days: No Exposure 10 Days Any COVID Exposure Last 10 Days: No Symptoms Last 10 Days Experienced COVID Sx Last 10 Days: No + COVID 0-90 Days COVID + in Last 0-90 Days: No
--- NOTE | 2022-01-07 21:19 | History and Physical Report ---
DATE OF ADMISSION: 01/12/2022. CHIEF COMPLAINT: Bilateral knee pain and discomfort, right side greater than left. 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 She has got a long history of bilateral knee pain and discomfort that has gotten worse over time. The right knee is worse than the left. She has been through extensive conservative treatment, which has become less successful over time. She has limited walking tolerance. She limps more as the day goes on. She has nighttime pain. She would like to have her knee fixed. PAST MEDICAL HISTORY: 1. History of atrial fibrillation, followed by Dr. Velasquez and cleared for surgery, on Xarelto. 2. Elevated cholesterol. 3. Hypertension. 4. Sleep apnea with CPAP machine. 5. Diabetes x4 years. 6. Chronic anemia. 7. Obesity. 8. Skin cancer. PREVIOUS SURGERIES: Include: 1. Cardiac ablation and currently now in sinus rhythm. 2. Laparoscopy for endometriosis. ALLERGIES: CODEINE. CURRENT MEDICATIONS: 1. Atorvastatin. 2. Calcium. 3. Coenzyme Q. 4. Dofetilide. 5. Lasix. 6. Losartan. 7. Magnesium oxide. 8. Xarelto. 9. Turmeric. 10. Multivitamin. 11. Metoprolol. 12. Metformin. SOCIAL HISTORY: A 66-year-old female. 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 Does not smoke. No significant alcohol intake. FAMILY HISTORY: Noncontributory. REVIEW OF SYSTEMS: Significant for atrial fibrillation. She is now in sinus rhythm, but on Xarelto. She is diabetic. No chest pain or shortness of breath. No history of DVT or PE. PHYSICAL EXAMINATION: GENERAL: Shows a pleasant middle-aged female. Looks to be in pretty good health. HEENT: Benign. NECK: Supple. No lymphadenopathy. LUNGS: Clear to auscultation. HEART: Regular rate and rhythm. ABDOMEN: Soft, nontender, nondistended. EXTREMITIES: Grossly neurovascularly intact except as follows. Examination of the right knee reveals the patient walks with a varus alignment to her knee. Range of motion 5-110. No varus or valgus instability. No pain with hip motion. Moderate size effusion. X-RAYS: X-rays of the right knee reveal advanced right knee DJD. She has got advanced tricompartment disease with osteophytes in all 3 compartments. Joint space narrowing. 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 She has failed conservative treatment and would like to have her right knee replaced. PLAN: We will proceed with right knee replacement. The risks and benefits of this procedure were explained to the patient and include but not limited to DVT, PE, , infection, neurological injury, vascular injury, bleeding problem, pain, limited range of motion, stiffness, failure to relieve her symptoms, incomplete relief of symptoms, need for further surgery in the future, etc. The patient understands and desires to proceed. Informed consent was obtained. She knows to stop her Xarelto 3 days preop. We will start her at 24 hours postop at a prophylactic dose. She is planning to be discharged to home using [facility] program. Job ID: [id number] [facility]
[~2022-01-12 06:18] MED LIST changes: +ACETAMINOPHEN 500 MG TAB PO SCH; -ASPCH81X PO; -ATOR-24 PO; +BUPIVACAINE LIPOSOME/PF 266 MG, BUPIVACAINE/EPINEPHRINE 50 ML, SODIUM CHLORIDE 0.9% 30 ... INFIL SCH; -CALC500C70 PO; -CZR25 PO; +CeleBREX 200 MG CAP PO SCH; +FAMOTIDINE 20 MG TAB PO SCH; -FURO-85 PO; +LR 500ML BOLUS, THEN 15ML/HR IV SCH; +LR 60ML/HR IV SCH; -MAGN400T6 PO; -METO25TA56 PO; +METOCLOPRAMIDE HCL 10 MG TABLET PO SCH; -MULT-506 PO; -RIVA1TAB4 PO; +Scopolamine 1 MG TDSY TD SCH; +TRANEXAMIC ACID 1,000 MG **IV Intra-op IV SCH
[2022-01-12] MEDS ORDERED: ROPIVACAINE 0.5% 5 MG/ML 30 ML VIAL ONE (06:22)
[2022-01-12] MEDS ORDERED: BUPIVACAINE 0.5 % 5 MG/1 ML PF 10ML VIAL ONE (06:22)
--- NOTE | 2022-01-12 06:52 | History & Physical Bridge Note ---
Date of Service January 12, 2022 History & Physical Bridge Note I have examined the patient, reviewed the History & Physical and in the interval since the performance of the History & Physical I have noted the following changes of clinical significance: no changes noted
[2022-01-12] MEDS ORDERED: MIDAZOLAM HCL 1 MG/ML 2ML VIAL ONE ×2 (07:34→08:24)
[2022-01-12] MEDS ORDERED: fentaNYL citrate 100 MCG/2 ML VIAL ONE (07:36)
[2022-01-12] MEDS ORDERED: PROPOFOL IV EMULSION 10 MG/ML 20 ML VIAL IV ONE ×4 (07:42→10:19)
[2022-01-12] MEDS ORDERED: ePHEDrine sulfate 50 MG/ML AMP IV PRN (08:28)
[2022-01-12] MEDS ORDERED: HYDROmorphone INJ 1 MG/ML SYRINGE IV PRN ×2 (08:28→12:30)
[2022-01-12] MEDS ORDERED: ATROPINE SULFATE 0.1 MG/ML 10ML SYR IV PRN (08:28)
[2022-01-12] MEDS ORDERED: ONDANSETRON INJ 2 MG/ML 2 ML VIAL IV PRN ×2 (08:28→12:30)
[2022-01-12] MEDS ORDERED: SODIUM CHLORIDE 0.9% PF 50 ML VIAL ONE (08:49)
[2022-01-12] MEDS ORDERED: BUPIVACAINE LIPOSOME 1.3% 266 MG/20 ML VIAL ONE (08:49)
[2022-01-12] MEDS ORDERED: BUPIVACAINE/EPINEPHRINE 0.25% 1:200,000 30 ML VIAL ONE (08:49)
[2022-01-12] MEDS ORDERED: ONDANSETRON INJ 2 MG/ML 2 ML VIAL ONE (09:23)
--- NOTE | 2022-01-12 10:36 | Operative Report ---
PG Post Operative Report Pre & Post Diagnosis Operation Date: 01/12/22 08:50 Pre-Op Diagnosis: Right Knee Degenerative Joint Disease Post-Op Diagnosis: Right Knee Degenerative Joint Disease I identified the patient and participated in the time-out.: Yes Procedure Operation Date: 01/12/22 08:50 Actual Procedures p Right Total Knee Arthroplasty(Right) - Neno Ambriz MD Surgeon Neno Ambriz MD [employer] Matcher Wolfgang Palacios PA-C Estimated Blood Loss 50 Findings Consistent with Post-Op Diagnosis Operative findings revealed a large soft tissue envelope. She had extensive grade 4 [id number] disease primarily of the medial compartment. Fixed varus deformity to her knee. Moderate-sized joint effusion. 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 She been through extensive conservative treatment which became less successful over time. X-rays show advanced knee DJD. She elected proceed with surgical treatment. Description of Procedure Operative implants consist of: 1 Biomet Vanguard size 65 right posterior stabilized femoral component. 2. Biomet size 71 tibial tray. 3. 10 mm posterior stabilized polyethylene insert. 4. 31 x 8 all Paller patella. The patient was taken to the operating, identified, placed on the operating table supine position protectors were properly padded. IV antibiotics tried by anesthesia team. Spinal anesthetic and abductor canal block had been provided in the holding area. Hernandez catheter was placed in sterile fashion for right Tetrick was then placed in the right lower extremities and prepped draped in usual sterile fashion. Right leg was Elave exsanguinated with use of an Esmarch in terms playset 300 mmHg. An anterior posterior the right knee was then performed to longitudinal incision centered over the patella. Sharp dissection was got through subcutaneous tissue down the extensor mechanism. Medial proper arthrotomy incision was made. Some subperiosteal dissection was carried out medially. The fat pad was resected from Neath patella tendon. The lateral patellofemoral ligament was released. Patella subluxated laterally and the knee was flexed. The osteophytes were taken off distal femur. The ACL and PCL were then released from the distal femur the tibia subluxated anteriorly. The external tibial alignment jig was then placed in the interface the tibia and adjusted 14 mm medially. The proximal tibial cut was made removed by millimeter bone from this deficient aspect medial tibial plateau. The tibia was then sized to a size 71. I tried to maximize her coverage due to her large size and small bone structure. Attention drawn the femur. The distal femur during the sharp drop with intramedullary canal was suction. A right 5 degree valgus cutting guide was placed. This femoral cutting block was pinned in place but this femoral cut was made to take an additional 3 mm bone off distal femur. The femur was then sized to a size 65. The AP cutting block was pinned parallel to the epicondylar axis which was 4 degrees of external rotation. The anterior cut, anterior chamfer, posterior cut, posterior chamfer cuts were made. The box cutting guide was placed in just slight lateral box cut was made. The knee was flexed to the remnants of the medial and lateral menisci were excised but the osteophytes were taken off the posterior aspect the femur. A trial femoral component was placed for the tibial tray was pinned in maximum external rotation and the drill and stem punch were used to create defect in proximal tibia for the tibial tray. Knee was then trialed and the 10 mm insert fit most appropriately. Attention drawn the patella. The patella was cleaned of all soft tissues. Patella thickness measured 21 mm in thickness was cut down to 12. Sized to a size 31 patella. The lug holes were drilled for the 31 patella. Lateral osteophytes removed. Patella button was placed. Knee was taken through range of motion patella tracked nicely with no thumbs test. Attention drawn to placing permanent components. Nupathe all trial components were removed. Bone plug was placed in the distal femur limit blood loss. Double batch Palacos G cement was mixed. Biomet Vanguard size 65 right posterior stabilized femoral component, size 71 tibial tray, 10 mm posterior stabilized polyethylene insert, 31 x 8 all Paller patella were then cemented in place. The knee was brought out into full extension total cement hardened. Final cement check was then performed. The pericapsular tissues were injected with total 100 cc of combination of 20 of Exparel, 30 cc normal saline, 50 cc of quarter percent Marcaine with epinephrine. Patient did receive 1 g tranexamic acid per the chart was let down for final turn time of 49 minutes. Hemostasis reduced electrocautery. Sectionectomy closed with combination 1 PDS suture #1 Vicryl suture in [id number] fashion. Extensor mechanism was checked and found to be intact the subcutaneous tissue then closed with 2 Dexon suture in buried erupted fashion skin was closed skin yessica. Leg was then cleaned and dried and sterile dressed with Xeroform, 4 fours, sterile cast padding, Anibal bandage were applied. Patient transferred to the recovery room in stable condition. Patient tolerated procedure well no complications. Wolfgang Palacios, my physician assistant professor of geography, was present for the entire procedure. His assistance was essential and required for appropriate patient positioning, prepping and draping, surgical exposure, performing the technical details of the operation, placement the implants, closure of the wound, and placement of the sterile bandage. I attest to the content of the Intraoperative Record and any orders documented therein. Any exceptions are noted below.
--- NOTE | 2022-01-12 10:55 | XRay Report ---
TWO VIEWS RIGHT KNEE CLINICAL HISTORY: Postoperative examination. FINDINGS: AP and crosstable lateral portable views of the right knee are obtained. A right knee arthr oplasty is in near anatomic alignment. There has been undersurface remodeling of the patella. No acut e fracture is seen. There are expected postoperative changes around the knee including skin clips, s oft tissue edema, and subcutaneous gas. IMPRESSION: Expected postoperative changes status post right knee arthroplasty. No acute fracture is seen. ACT 112: Negative or not required by law. Electronically signed by: Shayan Chao M.D. 01/12/2022 10:54 AM
[2022-01-12] MEDS ORDERED: PHARMACY GLYCEMIC MGMT CONSULT PRN (12:30)
[2022-01-12] MEDS ORDERED: DEXTROSE 50% 50 ML SYRINGE IV PRN (12:30)
[2022-01-12] MEDS ORDERED: GLUCOSE 10 TAB/TUBE PO PRN (12:30)
[2022-01-12] MEDS ORDERED: GLUCOSE 40% GEL 15 GM TUBE PO PRN (12:30)
[2022-01-12] MEDS ORDERED: GLUCAGON FOR INJ 1 MG VIAL SQ PRN (12:30)
[2022-01-12] MEDS ORDERED: NALOXONE HCL 0.4 MG/1 ML VIAL/CARP IV PRN (12:30)
[2022-01-12] MEDS ORDERED: CARBOHYDRATES FOR HYPOGLYCEMIA PO PRN (12:30)
[2022-01-12] MEDS ORDERED: METOCLOPRAMIDE HCL INJ 5 MG/ML 2 ML VIAL IV PRN (12:30)
[2022-01-12] MEDS ORDERED: FUROSEMIDE 20 MG TAB PO PRN (12:30)
[2022-01-12] MEDS ORDERED: ALUMINUM/MAGNESIUM SUSP 30 ML UDC PO PRN (12:30)
[2022-01-12] MEDS ORDERED: MAGNESIUM HYDROXIDE SUSP 30 ML UDC PO PRN (12:30)
[2022-01-12] MEDS ORDERED: oxyCODONE HCL IR 5 MG TAB (IMMEDIATE RELEASE) PO PRN (12:30)
[2022-01-12] MEDS ORDERED: bisacodyL 10 MG SUPP PR PRN (12:30)
--- NOTE | 2022-01-12 13:42 | Pharmacy Report ---
Glycemic Ortho Sign Off Note - Date of Service January 12, 2022 - Scope Glycemic Pharmacist consulted for glycemic control and to write orders per [facility] inpatient glycemic control protocol. - Objective Accuchecks BSG (last 24hrs):: 01/12/22 01/12/22 01/12/22 06:52 10:38 12:31 POC Glucose 155 H 155 H 130 H - Assessment * Pt is maintained on oral antidiabeticagent[s]as anoutpatient with excellent control per recent A1c * Oral agents are not recommended for inpatient use d/t drug interactions, changing PO intake, and difficulty titrating for acute hyper/hypoglycemia. * Recommended regimen for inpatient use is SQ insulin * Low stress weight based insulin dosing appropriate since patient has minimal risk factors for insulin resistance (i.e. no steroids). * Appropriate to DC insulin and resume outpatient antidiabetic regimen at discharge * Goal is to maintain BSGs <200 mg/dl (ideally <150 mg/dl) to prevent post op complications - Plan For Inpatient Glycemic Control * Basal insulin * Not needed based on A1c, pre-op BSGs, and minimal risk factors for insulin resistance * Bolus insulin * Utilize low stress weight based NovoLog parameters per scale ACHS * Pharmacy has entered glycemic orders and is signing off of the glycemic consult. We will no longer be making adjustments to inpatient regimen. Please feel free to re-consult if needed. Thank you.
--- NOTE | 2022-01-12 13:58 | Anesthesiology Progress Note ---
Date of Service January 12, 2022 Anesthesia Post Procedure Vital Signs Vital Signs: Temp Pulse Pulse Pulse Resp BP Pulse Ox 01/12/22 13:26 36.4 C L 63 16 125/58 L 96 01/12/22 13:00 36.7 C 59 L 17 130/62 97 01/12/22 12:30 36.5 C 52 L 17 129/78 97 01/12/22 12:10 36.4 C L 51 L 16 142/60 H 96 01/12/22 12:00 52 L 20 136/68 98 01/12/22 11:50 51 L 18 136/68 97 01/12/22 11:40 51 L 18 138/63 96 01/12/22 11:30 54 L 17 138/66 97 01/12/22 11:20 55 L 18 121/52 L 96 01/12/22 11:10 55 L 18 125/59 L 97 01/12/22 11:00 57 L 17 127/59 L 96 01/12/22 10:50 58 L 15 115/61 100 01/12/22 10:40 61 16 128/58 L 100 01/12/22 10:34 36.4 C L 68 18 135/63 97 01/12/22 06:54 36.7 C 64 20 180/79 H 98 O2 Del Method O2 Flow Rate 01/12/22 13:26 Room Air 01/12/22 13:00 Room Air 01/12/22 12:30 Room Air 01/12/22 12:10 Room Air 01/12/22 12:00 Room Air 01/12/22 11:50 Room Air 01/12/22 11:40 Room Air 01/12/22 11:30 Room Air 01/12/22 11:20 Room Air 01/12/22 11:10 Room Air 01/12/22 11:00 Room Air 01/12/22 10:50 Oxymask 5 01/12/22 10:40 Oxymask 9 01/12/22 10:34 Oxymask 9 01/12/22 06:54 Room Air Pain Intensity Right Knee: Pain Intensity: 5 Transfer of Care Handoff Completed per policy Notes Mental Status: alert / awake / arousable Patient Amnestic to Procedure: Yes Nausea / Vomiting: adequately controlled Pain: adequately controlled Airway Patency, RR, SpO2: stable & adequate BP & HR: stable & adequate Hydration State: stable & adequate Neuraxial Anesthesia: was administered and sensory block is resolving Anesthetic Complications: no major complications apparent
[2022-01-12] MEDS: SODIUM CHLORIDE 0.9% 1000ML 1,000 ML IV SCH (14:48)
[2022-01-12] MEDS: ACETAMINOPHEN 500 MG TAB PO SCH ×2 (14:53→22:52)
[2022-01-12] MEDS: KETOROLAC TROMETHAMINE 15 MG/ML VIAL IV SCH ×2 (14:54→20:07)
[2022-01-12] MEDS ORDERED: TRANEXAMIC ACID / 0.7% NACL 1,000 MG/100 ML BAG IV SCH (16:30)
[2022-01-12] MEDS: INSULIN ASPART PER UNIT SC SCH ×2 (17:00→22:53)
[2022-01-12] MEDS: Scopolamine CHECK PATCH PLACEMENT SCH (17:07)
[2022-01-12] MEDS: ceFAZolin 2000MG 2,000 MG/15 ML SYR IV SCH (17:08)
[2022-01-12] MEDS: ASCORBIC ACID 500 MG TAB PO SCH (17:23)
[2022-01-12] MEDS: DOCUSATE SODIUM 100 MG CAP PO SCH (20:34)
[2022-01-12] MEDS: METOPROLOL TARTRATE 50 MG TAB PO SCH (20:35)
[2022-01-12] MEDS: DOFETILIDE 125 MCG CAPSULE PO SCH (20:35)
[2022-01-12] MEDS: CALCIUM 600MG + VIT D 400 IU TAB PO SCH (20:35)
[2022-01-12] MEDS ORDERED: SENNA 8.6 MG TAB PO SCH (21:00)
[2022-01-12] MEDS ORDERED: LOSARTAN POTASSIUM 50 MG TAB PO SCH (21:00)
[2022-01-12] MEDS: TAPENTADOL HCL ER 50 MG TABCR PO SCH (22:52)
[2022-01-13] MEDS: SODIUM CHLORIDE 0.9% 1000ML 1,000 ML IV SCH (01:07)
[2022-01-13] MEDS: ceFAZolin 2000MG 2,000 MG/15 ML SYR IV SCH (01:07)
[2022-01-13] MEDS: KETOROLAC TROMETHAMINE 15 MG/ML VIAL IV SCH ×2 (02:13→08:22)
[2022-01-13] MEDS: Scopolamine CHECK PATCH PLACEMENT SCH ×2 (02:13→08:22)
[2022-01-13] MEDS: ACETAMINOPHEN 500 MG TAB PO SCH ×2 (06:05→13:20)
[2022-01-13 06:13] LABS: Hematocrit (blood only) 29.7 % (34.1-44.9); Hemoglobin 9.6 g/dl (12.0-16.0); Mean Corpuscular Hemoglobin 26.6 pg (25.0-34.0); Mean Corpuscular Hgb Conc 32.3 g/dL (32.0-36.0); Mean Corpuscular Volume 82.3 fL (80.0-100.0); Mean Platelet Volume 11.2 fL (9.4-12.3); Platelet Count 246 K/uL (130-400); RDW Coefficient of Variation 14.5 % (11.5-14.5); RDW Standard Deviation 42.8 fL (36.4-46.3); Red Blood Count 3.61 M/uL (3.93-5.22)
[2022-01-13 06:46] LABS: Calcium 8.8 mg/dl (8.5-10.1); Creatinine Clr Calc Pharmacy 95.9 ml/min; Est GFR (African American) 99.7 ml/min; Est GFR (Non-African American) 86.1 ml/min; Potassium 4.2 mmol/L (3.5-5.1)
--- NOTE | 2022-01-13 07:47 | Progress Notes ---
DATE OF NOTE: 01/13/2022. SUBJECTIVE: A 66-year-old female, postoperative day 1 from a right knee replacement. She is doing p retty well. Pain has been controlled. No chest pain or shortness of breath. Not feeling dizzy or l ightheaded. She had a pretty good evening. OBJECTIVE: VITAL SIGNS: Temperature 36.8. Vital signs are stable. GENERAL: Shows a pleasant middle-aged female. She is sitting in her bed, looks pretty comfortable t his morning. LUNGS: Clear to auscultation. HEART: Has a regular rate and rhythm. ABDOMEN: Soft, nontender, nondistended. EXTREMITIES: Grossly neurovascularly intact except as follows. Examination of the right leg reveals the dressing to be clean, dry and intact. She can dorsiflex and plantarflex her foot appropriately. She is neurologically intact. LABORATORY DATA: Hemoglobin 9.6. Hematocrit 29.7. Electrolytes are stable. ASSESSMENT: A 66-year-old female postoperative day 1 from right total knee replacement, doing pretty well. Pain is controlled. She is neurologically intact. PLAN: 1. DVT prophylaxis includes thigh-high TEDs, SCDs and back on her Xarelto starting today. We will p ut her on a prophylactic dose today and then a full dose when she goes home. 2. PT/OT, weightbear as tolerated. Right total knee protocol. 3. Pain control, doing okay with current pain regimen. 4. Disposition: Plan to discharge to home with some home health if she does okay in therapy. Job ID: [id number]
[2022-01-13] MEDS: INSULIN ASPART PER UNIT SC SCH ×2 (08:18→12:16)
[2022-01-13] MEDS: ASCORBIC ACID 500 MG TAB PO SCH (08:21)
[2022-01-13] MEDS: DOCUSATE SODIUM 100 MG CAP PO SCH (08:21)
[2022-01-13] MEDS: TAPENTADOL HCL ER 50 MG TABCR PO SCH (08:21)
[2022-01-13] MEDS: CALCIUM 600MG + VIT D 400 IU TAB PO SCH (08:22)
[2022-01-13] MEDS: DOFETILIDE 125 MCG CAPSULE PO SCH (08:22)
[2022-01-13] MEDS: METOPROLOL TARTRATE 50 MG TAB PO SCH (08:22)
[2022-01-13] MEDS ORDERED: MULTIVITAMIN TAB PO SCH ×2 (09:00)
[2022-01-13] MEDS ORDERED: ATORVASTATIN 40 MG TAB PO SCH (09:00)
[2022-01-13] MEDS ORDERED: MAGNESIUM OXIDE 400 MG TAB PO SCH (09:00)
[2022-01-13] MEDS ORDERED: NON-FORMULARY MEDICATION (Coenzyme Q10 [Co Q-10] 200 mg Capsule) PO SCH (09:00)
[2022-01-13] MEDS ORDERED: DOCUSATE SODIUM/SENNA 50/8.6MG TAB PO SCH (09:00)
[2022-01-13] MEDS ORDERED: NON-FORMULARY MEDICATION (Turmeric Root Extract 500 mg Capsule) PO SCH (09:00)
[2022-01-13] MEDS ORDERED: RIVAROXABAN 10 MG TABLET PO SCH (11:00)
--- NOTE | 2022-01-16 07:02 | Discharge Summary ---
Date of Service January 16, 2022 Discharge Data Procedures Performed Operation Date: 01/12/22 08:50 Actual Procedures p Right Total Knee Arthroplasty(Right) - Neno Ambriz MD Hospital Course (1) Status post total right knee replacement: This is a 66 year old patient admitted on 01/12/22 and underwent total knee arthroplasty. She tolerated the procedure well and there were no complications. Transferred to the PACU post op and later to the orthopedic floor for further care. She was given ancef for antibiotic prophylaxis. She was also given BETH stockings, SCDs, and xarelto for DVT prophylaxis. Hemoglobin, hematocrit, and vital signs were monitored during her hospital stay and remained stable. Did not require any blood transfusions. There were no complications during her hospital stay. By post op day #1 the patient was tolerating a regular diet, pain was reasonably controlled with oral pain medicine, and she was participating in physical therapy. On post op day #1 the patient was discharged home and set up with home health care. She was given printed discharge instructions including prescriptions for extra strength tylenol, zofran, senokot, and oxycodone. Continue physical therapy, weight bearing as tolerated. Continue BETH stockings. Follow up approximately 2 weeks post op or sooner if there are problems or concerns. Coding Level of Care Code None Diagnoses Status post total right knee replacement Z96.651
== END 2022-01-13 14:41 | disposition home health service (06) ==
LOC: 3N 06:18 → ASU 06:18